=== PATIENT | male | born 1945 | race Caucasian/White ===

== ENCOUNTER 2022-02-21 07:36 | Outpatient (CLI) | payer MEDICARE, SELFPAY ==
--- NOTE | 2022-03-19 11:59 | WPDSLEEPSTUD ---
Sleep Study Date of Study: 02/21/22 Ordering Provider: Dhara Gramajo Interpreting Physician: Lindsay Rousseau DO Sleep Study Type: BiPAP Titration Height: 1.8 m Weight: 97.522 kg Body Mass Index: 29.9 Neck Circumference (inches): 19.5 [place]: 9 Reason for Sleep Study Previous history of EMMANUEL on CPAP and BPAP. Unable to tolerate BPAP recently. Patient is also acting out his dreams. Sleep History The patient is a 77-year-old male with hypertension, CVA, coronary artery disease, GERD, paroxysmal atrial fibrillation and previously diagnosed sleep apnea that had a Pap titration study ordered by his sleep physician. The patient states that he is also been acting out his dreams. His states that he screams at night, kicks and Aks out his dreams. The patient has not fallen out of bed. He has been having 1-2 episodes per week. The patient has been on BiPAP therapy for the past 2 years but has recently been unable to tolerated. He has been waking up feeling unrefreshed. The patient rarely awakens from sleep short of breath. He occasionally awakens at night with heartburn, belching or cough. He rarely snores loud enough that others complain. He rarely has trouble sleeping when he has a cold. He rarely wakes up gasping for air throughout the night. He rarely has breathing problems at night observed by himself or others. He occasionally sweats excessively at night. He rarely has heart palpitations or irregular heartbeats during the night. He frequently falls asleep during the day but never while driving. He occasionally has trouble at school or work due to sleepiness. He denies sleep paralysis and cataplexy. He rarely experiences vivid dreamlike scenes upon awakening or falling asleep. He rarely feels afraid of going to sleep. He frequently has nightmares and frequently remembers his dreams. He occasionally has thoughts racing through his mind. He rarely feels sad or depressed. He occasionally has anxiety. He occasionally has muscular tension. He occasionally notices parts of his body jerk. He occasionally kicks during the night. He occasionally has crawling and aching feelings in his legs and occasionally has leg pain during the night. He occasionally grinds his teeth during sleep but will rarely awaken with morning jaw pain. He is occasionally bothered by pain during the day and occasionally awakened by pain during the night. He frequently wakes up feeling stiff in the morning. He frequently wakes up with sore achy muscles. He frequently wakes up with pain in the neck, spine and other joints. He goes to bed at 10:30 p.m. on both weekdays and weekends. It takes him 15 minutes to fall asleep. He wakes up 2-3 times throughout the night to urinate. It takes him 30 minutes to fall back asleep. He wakes up at 6:00 a.m. on both weekdays and weekends. He typically gets 5-6 hours of sleep per night. He will stay in bed for 10 minutes after waking up in the morning. He currently lives with his . He does not consume any caffeinated beverages within 2 hours of bedtime. He does not engage in physical exercise before bedtime. He will watch television before falling asleep. He will take naps in the afternoon or the evening and they are refreshing. He drinks 2 caffeinated beverages per day. He will drink 1 alcoholic beverage per day. He quit smoking 42 years ago. He denies recreational drug use. [facility] Past Medical History Medical History (Updated 03/19/22 @ 12:17 by Lindsay Rousseau DO) CAD (coronary artery disease) GERD (gastroesophageal reflux disease) History of CVA (cerebrovascular accident) HTN (hypertension) EMMANUEL (obstructive sleep apnea) Paroxysmal atrial fibrillation Social History Social History (Updated 03/19/22 @ 12:08 by Lindsay Rousseau DO) Smoking status: Former smoker Tobacco type: cigarettes Alcohol intake: current Drinks per week: 7 Substance use: never Living arrangements: with [facility]
[2022-03-19 23:26] VITALS: BMI 29.9
== END 2022-02-22 06:19 | disposition home or self-care (01) ==
LOC: ANHCSM 07:37
PROVIDERS: PCP Family Medicine
DX: G47.33 Obstructive sleep apnea (adult) (pediatric) (principal)
CPT/HCPCS: 95811

== ENCOUNTER 2025-04-22 13:29 | Outpatient (CLI) | payer MEDICARE, SELFPAY ==
--- OUTSIDE RECORDS SUMMARY | 2025-04-21 11:00 | XMS_ITS | Encounter Summary ---
Author Organization [facility] Address [address] [place] [address] Care Team Providers Care Manufacturing Helper Name Role Phone Saul Trevino MD Primary Care Provider James Pickett MD Unavailable Bismark Gerardo MD Unavailable [phone] Tonio Apodaca MD Unavailable Faheem Parish MD Unavailable Adithya Augustine DO Unavailable [phone] Andre Hernandez MD Unavailable [phone] Reason for Visit * Reason Comments Anticoagulation protime Encounter Details Date Type Department Care Team (Late st Contact Info) Description 04/21/2025 11:00 AM CDT Allied Health/N[facility] [address] [place], [place] [id number] James Pickett MD Three [facility]. [facility] [address], [place] [id number] Anticoagulation (protime) Social History Tobacco Use Types Packs/Day Years Used Date Smoking Tobacco: Former Cigarettes 1 10 0 03/27/1966 - 03/27/1976 Passive Smoke Exposure: Past Smokeless Tobacco: Never Comments:former smoker Passive Exposure Comments:cigarette smoker Alcohol Use Standard Drinks/Week Comments Yes 6.7 (1 standard drink = 0.6 oz p ure alcohol) socially AUDIT-C Answer Date Recorded Q1: How often do you have a drink containing alc ohol? 2-4 times a month 01/02/2021 Average Number of Drinks Not on file Frequency of Binge Drinking Not on file 11/2020 PHQ-2 Answer Date Recorded Patient Health Questionnaire-2 Score 0 09/30/2023 Education Answer Date Recorded What is the highest level of school you have completed or the highest degree you have received? 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 Answer Date of Assessment Author Status No 11/01/2021 6:01 PM [employer] Activ e * Do you have serious difficulty walking or climbing stairs? Answer Date of Assessment Author Status Yes 11/01/2021 6:01 PM [employer] Kira Olea R N Active * Do you have difficulty dressing or bathing? Answer Date of Assessment Author Status No 11/01/2021 6:01 PM [employer] Kira Olea R N Active * Because of a physical, mental, or emotional condition, do you have difficulty doing errands alone such as visiting a doctor's office or shopping? Answer Date of Assessment Author Status No 11/01/2021 6:01 PM [employer] Kira Olea R N Active documented as of this encounter Mental Status * Because of a physical, mental, or emotional condition, do you have serious difficulty concentrating, remembering, or making decisions? Answer Entry Date Author Status No 11/01/2021 6:01 PM [employer] Kira Olea R N Active documented in this encounter Progress Notes * Mindi Irving RN - 04/21/2025 11:00 AM CDT INR 1.0 patient has held warfarin 5 days for a pain injection today.Patient will resume his usual warfarin dose tomorrow and follow up with the [place] coumad[facility] clinic.Notified in the clinic. documented in this encounter Plan of Treatment Upcoming Encounters Date Type Department Care Team (Late st Contact Info) Description 06/20/2025 11:35 AM CDT Allied Health/N[facility] [address] [place] [address] James Pickett MD Three [facility]. [facility] [address] [place] [address] 09/20/2025 12:00 PM [employer] Office [facility] [address] [place] [address] James Picektt MD [facility] [address] [place] [address] 09/27/2025 1:00 PM [employer] Office Visit [facility] [address] [place] [address] Saul Trevino MD [address] [place] [address] documented as of this encounter Goals Goal Patient Goal Type Associated Problems Recent Progress Patient-Stated? Author Patient will return to prior living situation and remain independent in ADLs upon discharge from hospital General No Anna Wall RN documented as of this encounter Procedures Procedure Name Priority Date/Time Associated Diagnosis Comments PROTHROMBIN TIME, FINGERSTICK Routine 04/21/2025 10:59 AM CDT Paroxysmal atrial fibrillation (CMS/HCC HHS/HCC) director long term care (current) use of anticoagulants documented in this encounter Results * PROTIME/INR, FINGERSTICK (04/21/2025 10:59 AM CDT) INR WHOLE BLOOD 1.00 [facility] 04/21/2025 10:5 9 AM CDT James Pickett MD LABORATORY Final Result [facility] [address] [facility] [address] [place] [address], [id number] documented in this encounter Visit Diagnoses Diagnosis director long term care (current) use of anticoagulants- Primary Long-term (current) use of anticoagulants Paroxysmal atrial fibrillation (CMS/HCC HHS/HCC) Atrial fibrillation documented in this encounter Additional Health Concerns Assessment Noted Time PHQ-9 Depression Total Score: 0 09/26/19 23 2:21 PM [employer] documented as of this encounter Care Teams Manufacturing Helper Relationship Specialty Start Date End Date Saul Trevino MD PCP - General FAMILY PRACTICE 08/22/20 James Pickett MD Three [facility]. [facility] [address] [place], [place] [address] [place] Senior Windows Administrator CARDIOVASCULAR DISEASE 03/01/16 Bismark Gerardo MD [address] [place] [address] [address] [place] [address] Consulting Physician PULMONARY DISEASE 06/21/21 Tonio Apodaca MD [address] [place] [address] Consulting Physician UROLOGY 06/21/21 Faheem Parish MD [address] [facility] [address] [place] [address] GASTROENTEROLOGY 06/21/21 Adithya Augustine DO [address] [facility] [address] [place] [address] Consulting Physician GASTROENTEROLOGY 06/21/21 Andre Hernandez MD [address] [facility] [address] [place], [place] [address] Consulting Physician HEMATOLOGY/ONCOLOGY 06/21/21 documented as of this encounter
--- OUTSIDE RECORDS SUMMARY | 2025-04-21 11:14 | XMS_ITS | Encounter Summary ---
Author Organization [facility] Address [address] [place] [address] Care Team Providers Care Fbi Investigator Name Role Phone Saul Trevino MD Primary Care Provider [phone] James Pickett MD Unavailable Bismark Gerardo MD Unavailable [phone] Tonio Apodaca MD Unavailable [phone] Faheem Parish MD Unavailable [phone] Adithya Augustine DO Unavailable [phone] Andre Hernandez MD Unavailable [phone] Reason for Referral * Surgical (Routine) - New Request Specialty Diagnoses / Procedures Referred By Yuri rodriguez Referred To Contact Diagnoses Lumbar radiculopathy Procedures Case request operating room: INJECTION EPIDURAL TRANSFORAMINAL [id number] Lacie Stevenson MD [facility] [address] [facility] [place] [address] Phone: tel: fax: Referral ID Status Reason Start Date Expiration Date V isits Requested Visits Authorized [id number] New Request 04/21/2025 04/21/2026 1 1 Reason for Visit * Auth/Cert (Routine) Specialty Diagnoses / Procedures Referred By Contac t Referred To Contact Diagnoses Lumbar radiculopathy lumbar radiculopathy Procedures NJX AA&/STRD TFRML EPI LUMBAR/SACRAL 1 LEVEL INJECTION EPIDURAL [id number] Lacie Stevenson MD [facility] [address] [place] [address] Phone: tel: fax: Referral ID Status Reason Start Date Expiration Date Visits Re quested Visits Authorized [id number] 1 1 Encounter Details Date Type Department Care Team (Latest Contact Info) Description 04/21/2025 11:14 AM CDT - 04/21/2025 12:20 PM CDT Hospital Encounter [facility] [place], [place] [id number] Lacie Stevenson MD [facility] [address] [place] [phone] Discharge Disposition: Home or Self Care (Routine Discharge) Social History Tobacco Use Types Packs/Day Years [...] Average Number of Drinks Not on file 021 Frequency of Binge Drinking Not on file 11/2020 PHQ-2 Answer Date Recorded Patient Health Questionnaire-2 Score 0 09/30/2023 Education Answer Date Recorded What is the highest level of school you have completed or the highest degree you have received? 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 [employer] Not on file N ot on file Not on file documented as of this encounter Last Filed Vital Signs Vital Sign Reading Time Taken Comments Blood Pressure 149/83 04/21/2025 12:10 PM CDT Pulse 71 04/21/2025 12:10 PM CDT Temperature 36.4 C (97.5 F) 04/21/2025 11:21 AM CDT Respiratory Rate 18 04/21/2025 11:58 AM CDT Oxygen Saturation 97% 04/21/2025 12:10 PM CDT Inhaled Oxygen Concentration - - Weight 96.2 kg (212 lb) 04/21/2025 11:21 AM CDT Height 177.8 cm (5' 10) 04/21/2025 11:21 AM CDT Body Mass Index 30.42 04/21/2025 11:21 AM CDT documented in this encounter Functional Status * RETIRED Are you deaf or do you have serious difficulty hearing Answer Date of Assessment Author Status Yes 11/01/2021 6:01 PM SEQUENCING MACHINE OPERATOR Activ e * RETIRED Are you blind or do you have serious difficulty seeing, even when wearing glasses? Answer Date of Assessment Author Status No 11/01/2021 6:01 PM SEQUENCING MACHINE OPERATOR Activ e * Do you have serious difficulty walking or climbing stairs? Answer Date of Assessment Author Status Yes 11/01/2021 6:01 PM SEQUENCING MACHINE OPERATOR Kira Olea R N Active * Do you have difficulty dressing or bathing? Answer Date of Assessment Author Status No 11/01/2021 6:01 PM SEQUENCING MACHINE OPERATOR Kira Olea R N Active * Because of a physical, mental, or emotional condition, do you have difficulty doing errands alone such as visiting a doctor's office or shopping? Answer Date of Assessment Author Status No 11/01/2021 6:01 PM SEQUENCING MACHINE OPERATOR Kira Olea R N Active * Calculated C-SSRS Risk Score (Lifetime/Recent) Answer Date of Assessment Author Status No Risk Indicated 04/21/2025 11:20 AM CDT Nancy Burt RN Active * Perry Suicide Severity Rating Scale (Screener/Recent Self-Report) Question Answer Date of Assessment Author Status 1. Wish to be (Past 1 Month) No 04/21/2025 11:20 AM Duyen Gregory RN Act messi 2. Non-Specific Active Suicidal Thoughts (Past 1 Month) No 04/21/2025 11:20 AM Duyen Gregory RN Act messi 6. Suicidal Behavior (Lifetime) No 04/21/2025 11:20 AM Duyen Gregory RN Act messi documented as of this encounter Mental Status * Because of a physical, mental, or emotional condition, do you have serious difficulty concentrating, remembering, or making decisions? Answer Entry Date Author Status No 11/01/2021 6:01 PM Kira Osorio R N Active documented in this encounter Discharge Instructions * Discharge Instructions* Phoebe Giles RN - 04/21/2025 12:10 PM CDT [facility] Discharge Instructions RESTART WARFARIN TOMORROW 04/22/2025 WHAT TO DO TODAY: Limit your activity today, but bedrest is not required You may resume your normal activity tomorrow as tolerated Do not drive a vehicle or operate hazardous equipment for the first 24 hours after your procedure. You may experience numbness, tingling, and weakness in your extremities for several hours after your injection. Please be careful when walking or standing so you do not fall. You may remove your bandage in the morning and you may shower. WHAT TO DO TOMORROW: Resume your blood thinner medication if applicable. WHAT TO EXPECT OVER THE NEXT FEW DAYS TO A WEEK: Any weakness or tingling typically wears off after several hours but you may have some tingling forseveral days after some injections It is normal that once the numbing medicine wears off that you could be sore for several days before you notice relief. Pain should get better day by day. The steroid will start working after 2-3 days and can take up to 2 weeks for it to fully work. Everyone has different response to the injection depending on the amount of inflammation and diagnosis. HOW TO CONTROL YOUR PAIN: Injection site soreness is normal and will subside in a few days. We suggest ice packs to the injection site for 10-20 at a time every 2-3 hours. After 24 hours you may use heat if preferred or you may alternate heat and ice. Your pain may be worse for a couple of days; you may use any medications that you were using beforeyour visit. You may also use Tylenol, Motrin or Aleve if not contraindicated by your Primary Care Physician. If you no longer have any prescribed medicine, please get your refill from the physician who fist prescribed it for you. For patients who had a Radiofrequency Ablation your pain could last for up to 2 weeks. We are an Interventional pain management. We do not prescribe pain medicine. COMMON SIDE EFFECTS OF STEROIDS: You may experience warm, flushing sensation with redness in your face, neck and chest. You may feel anxious, jittery, irritable or have trouble sleeping. You may have increased hunger or menstrual changes (for women). If you are a diabetic you may have increased blood sugars. If you do and are unable to control please call your doctor who manages your diabetes. All side effects are temporary and should subside in approximately a week. WHEN TO CALL THE DOCTOR AND HOW TO REACH US: Call [phone]. [phone] for scheduling, insurance questions or speak with a nurse. Our hours are Friday-Friday 8:00am-4:00pm Call the number above for any bleeding/drainage/redness/swelling at the injection site, severe pain, persistent chills, fever over 101 or greater, or new or different pain or numbness. If you are unable to reach us call 911 or go to the nearest emergency room. If you have shortness of breath, fast heart rate, throat/tongue swelling call 911 or go to the nearest emergency room. ANY NEW BOWEL OR BLADDER INCONTINENCE ISSUES OR NUMBNESS TO PELVIC REGION PLEASE GO TO THE EMERGENCY ROOM IMMEDIATELY! documented in this encounter Medications at Time of Discharge acetaminophen 500 MG tablet Take 1 tablet (500 mg total) by mouth every 6 (six) hours as needed for Pain. albuterol sulfate HFA (PROAIR HFA) 108 (90 Base) MCG/ACT inhalerIndicatio ns:Mild reactive airways disease, unspecified whether persistent (HHS/HCC) Inhale 2 puffs into the lungs every 4 (four) hours as needed for Wheezing or Shortness of breath. 18 g 5 10/23/2020 BIPAP MACHINE brimonidine 0.2 % ophthalmic solution Place 1 drop into both eyes 3 (three) times daily. 04/13/2018 Cholecalciferol (VITAMIN D-3) 5000 units Tab Take 1 tablet (5,000 Units total) by mouth daily. 04/13/2018 fluticasone propionate (FLONASE) 50 MCG/ACT nasal sprayIndications :Cough USE 1 TO 2 SPRAYS IN EACH NOSTRIL ONCE A DAY 48 mL 1 01/01/2024 hydrocortisone 2.5 % creamIndications :Hemorrhoids, unspecified hemorrhoid type Apply topically 2 (two) times daily. 3.5 g 1 01/14/2023 lisinopril 10 MG tablet Take 1 tablet (10 mg total) by mouth nightly. MELATONIN ER OR Take 6 mg by mouth nightly at bedtime. nitroglycerin (NITROSTAT) 0.[address] 1 tablet (0.4 mg total) under the tongue every 5 (five) minutes as needed for Chest Pain (If 2 doses taken, all 911.). 25 tablet 1 07/16/2022 pantoprazole 20 MG tablet Take 1 tablet (20 mg total) by mouth daily. 09/08/2018 Polyvinyl Alcohol-Povidone (TEARS PLUS OP) Apply to eye 2 (two) times daily. rosuvastatin (CRESTOR) 10 MG tablet Take 1 tablet (10 mg total) by mouth nightly at bedtime. 90 tablet 1 09/18/2023 vitamin B-12 (CYANOCOBALAMIN) (CYANOCOBALAMIN) 1000 mcg tabletIndication s:Vitamin B 12 deficiency Take 1 tablet (1,000 mcg total) by mouth daily. 03/25/2025 warfarin 5 MG tablet Take 1 tablet (5 mg total) by mouth see administration instructions. documented as of this encounter H&P Notes * Lacie Stevenson MD - 04/21/2025 11:25 AM CDT Images from the original note were not included. Expand All Collapse All Admission Note With PreProc Assess CC: low back pain HPI: Patient is a 80-year-old male who presents to clinic for reevaluation of low back pain. He hasbeen seen previously in this clinic for management and treatment of his low back pain. His most recent visit was on 08/24 patient was seen for bilateral lumbar transforaminal injection. Patient reports 90% relief. Prior to Admission medications Medication Sig Start Date End Date Taking? Authorizing Provider acetaminophen 500 MG tablet Take 1 tablet (500 mg total) by mouth every 6 (six) hours as needed forPain. Yes Doc [facility] albuterol sulfate HFA (PROAIR HFA) 108 (90 Base) MCG/ACT inhaler Inhale 2 puffs into the lungs every 4 (four) hours as needed for Wheezing or Shortness of breath. 10/23/20 Yes Bismark Gerardo MD BIPAP MACHINE Yes Default History Genericprovider brimonidine 0.2 % ophthalmic solution Place 1 drop into both eyes 3 (three) times daily. 04/13/18 Yes JON Mcdonald Cholecalciferol (VITAMIN D-3) 5000 units Tab Take 1 tablet (5,000 Units total) by mouth daily. 04/13/18 Yes JON Mcdonald fluticasone propionate (FLONASE) 50 MCG/ACT nasal spray USE 1 TO 2 SPRAYS IN EACH NOSTRIL ONCE A DAY 01/01/24 Yes JUAN LUIS Velez hydrocortisone 2.5 % cream Apply topically 2 (two) times daily. 01/14/23 Yes Neptali Lozano MD lisinopril 10 MG tablet Take 1 tablet (10 mg total) by mouth nightly. Yes Doc [facility] MELATONIN ER OR Take 6 mg by mouth nightly at bedtime. Yes Doc [facility] nitroglycerin (NITROSTAT) 0.[address] 1 tablet (0.4 mg total) under the tongue every 5 (five) minutes as needed for Chest Pain (If 2 doses taken, all 911.). 07/16/22 Yes James Pickett MD pantoprazole 20 MG tablet Take 1 tablet (20 mg total) by mouth daily. 09/08/18 Yes JON Mcdonald Polyvinyl Alcohol-Povidone (TEARS PLUS OP) Apply to eye 2 (two) times daily. Yes Doc [facility] rosuvastatin (CRESTOR) 10 MG tablet Take 1 tablet (10 mg total) by mouth nightly at bedtime. 09/18/23 Yes James Pickett MD warfarin 5 MG tablet Take 1 tablet (5 mg total) by mouth see administration instructions. Yes Doc [facility] benzonatate (TESSALON PERLES) 100 MG capsule Take 1 capsule (100 mg total) by mouth 3 (three) timesdaily as needed. Patient not taking: Reported on 02/03/2024 12/10/23 JUAN LUIS Velez Allergies Allergen Reactions Ciprofloxacin Swelling Lips swelled Past Medical History Past Medical History: Diagnosis Date A-fib ([facility]) AAA (abdominal aortic aneurysm) ([facility] taking care of this, checks yearly; CT 11/03/2019: Infrarenal mild fusiform abdominal aortic ectasia measuring up to 3.0 cm. 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) Ischemia 2017 CVA (cerebral vascular accident) ([facility]) 12/2015 CVA 12/2015. Still has decreased dexterity right hand, did regain some strength in the hand GERD (gastroesophageal reflux disease) Glaucoma HLD (hyperlipidemia) HTN (hypertension) Neuromuscular disorder ([facility]) 03/2021 Nerve conduction test Obesity EMMANUEL (obstructive sleep apnea) BiPAP Prostate cancer ([facility]) 2013, 2014 s/p prostatectomy & 38 radiation treatments Stroke (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 DUAL LEAD PACEMAKER SYSTEM s/p [employer] dual chamber pacemaker in 2014 EAR SURGERY EXTERNAL Left 10/2022 EYE SURGERY Laser for glaucoma March 2019 [facility] LASER PROCEDURE EYE PROSTATECTOMY for prostate cancer REMOVAL OF SPERM DUCT(S) 1979 SIGMOIDOSCOPY N/A 03/08/2020 FLEXIBLE SIGMOIDOSCOPY-RADIATION PROCTITS performed by Faheem Parish MD at [facility] GI SIGMOIDOSCOPY N/A 06/20/2021 FLEXIBLE SIGMOIDOSCOPY with APC ablation for radiation proctitis performed by Adithya Augustine DO at [facility] GI XA LEAD REVISION/POCKET REVISION 10/21/2018 new RV lead Social History Socioeconomic History Marital status: Spouse name: Elysia Number of children: 2 Years of education: Not on file Highest education level: Bachelor's degree (e.g., BA, AB, BS) Occupational History 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, 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 [employer] Employer: RETIRED Tobacco Use Smoking status: Former Current packs/day: 0.00 Average packs/day: 1 pack/day for 10.0 years (10.0 ttl pk-yrs) Types: Cigarettes Start date: 03/27/1966 Quit date: 03/27/1976 Years since quittin.3 Passive exposure: Past (cigarette smoker) Smokeless tobacco: Never Tobacco comments: former smoker Vaping Use Vaping status: Never Used Substance and Sexual Activity Alcohol use: Yes Alcohol/week: 6.7 standard drinks of alcohol Types: 4 Cans of beer per week Comment: socially Drug use: Never Sexual activity: Yes Partners: Female control/protection: Surgical Other Topics Concern Service Yes Comment: [employer] Blood Transfusions No Caffeine Concern Yes Comment: 2 cups coffee daily Occupational Exposure Yes Comment: Exposure to Agent [place] while serving in the . Hobby Hazards No Sleep Concern Yes Comment: sleep apnea, uses BiPap. Stress Concern No Weight Concern No Special Diet No Back Care No Exercise Yes Comment: ymca 5x week Bike Helmet No Seat Belt No Self-Exams No Wheelchair No Walker Yes Comment: He is using a cane to assist, has it with him today. Said he is using the cane for the first time today. Upper extremity braces/slings No Lower extermity braces/slings No Self Care Yes Social History Narrative Merged History Encounter. Lives at home with his . Social Drivers of Health Financial Resource Strain: Not on file Food Insecurity: Not on file Transportation Needs: Not on file Physical Activity: Not on file Stress: Not on file Social Connections: Not on file Intimate Partner Violence: Not on file Housing Stability: Not on file Review of Systems: no changes except specified in HPI, no bladder or bowel incontinence PHYSICAL EXAM Filed Vitals: 07/22/24 0811 BP: (!) 150/91 Pulse: 79 Resp: 16 Temp: 98 ??F (36.7 ??C) TempSrc: Skin SpO2: 100% Weight: 94.4 kg (208 lb 3.2 oz) Height: 1.778 m (5' 10) Body mass index is 29.87 kg/m??. Pain Observation Pain Tool: 0-10 Age 7-Adult Pain Score: 5 Moderate Pain (0-10 Scale) Pain Type: Chronic pain Pain Location: Back Pain Orientation: Left, Lower (radiates down left leg) Pain Descriptors: Aching, Burning, Constant Pain Frequency: Constant/continuous Pain Onset: On-going Clinical Progression: Gradually worsening Effect of Pain on Daily Activities: worse moving from sitting to standing, standing, walking, Pain Intervention(s): Medication (See eMAR), Repositioned, Rest, Cold pack Multiple Pain Sites: No General: alert, appears stated age and cooperative Skin: normal and no rash or abnormalities HEENT: neck supple with midline trachea Lungs: no respiratory distress Heart: regular rate and rhythm Abdomen: soft Neuro: Lumbar exam: Patient ambulates with slightly limping gait (likely secondary to right sided residual weakness after suffering a stroke years ago), motor strength 5/5 to bilateral lower extremity muscle groups, patellar reflex 2+, bilaterally; Achilles reflex 2+, bilaterally. Straight leg raise positive, left side. Tenderness over direct palpation of L4-5, midline as well as to a lesser degree at L5-S1, midline as well as slightly off to the left at L4-5. Diagnostic imaging: Patient's most recent advanced imaging of the lumbar spine is a CT of the lumbar spine without contrast completed on 01/26/2022. Patient also had recent lumbar x- ray completed on 06/30/2024 in the ER after a fall. Imaging study findings are as follows: Narrative & Impression [facility] [address] IMAGING STUDIES: XR LUMB SPINE 3V DATE: 06/30/2024 10:27 AM HISTORY: fall 79-year-old male. Patient reports falling 2.5 weeks ago onto his left side. Persistent pain on his left side including his back and left hip. COMPARISON: Pelvis and left hip 06/30/2024. CT lumbar spine without contrast 01/24/2022. Ultrasound aorta 02/11/2024. DISCUSSION: AP, lateral, and coned lateral view at the lumbosacral spine. Five lumbar vertebral bodies. Mild rightward curvature lumbar spine with apex approximately L3-4 level. Degenerative disc diseaseat all levels in the lower thoracic spine and lumbar spine. Disc space narrowing probably most pronounced at L3-4 and L4-5 levels. Vacuum disc at L3-4 level is more pronounced than the 2021 CT exam. Bulky bridging osteophytes from T11 through L3 levels. Facet degenerative changes most pronounced atL3-S1 levels. Degenerative changes bilateral sacroiliac joints and visualized hips. Also refer to body builder apprentice radiographs of the pelvis and left hip. Cholecystectomy clips. Vascular calcifications. On lateral view, distal abdominal aorta aneurysmal dilation may be as much as 4.8 cm (on ultrasound 02/11/2024, distal aorta was 3.6 x 3.[address] abdomen pelvis without contrast 01/10/2022, it is 3.3 x 3.4 cm). IMPRESSION: 1. Substantial degenerative changes in the lower thoracic spine and entire lumbar spine. No appreciable new vertebral body compression fracture or traumatic malalignment. Correlate with clinical examand acquire advanced imaging such as CT or MRI if clinically indicated. 2. Aneurysmal dilation of the distal abdominal aorta may be as much as 4.8 cm on the current study which is greater than noted on previous ultrasound and CT studies. Consider follow-up aortic ultrasound for direct comparison with the 02/11/2024 study. Ordered By: RONY DUNN Interpreted By: Brayan Oliveira, 06/30/2024 11:33 AM Examination: CT LUMB SPINE WO CON Exam time: 01/24/2022 11:11 AM Clinical history: The patient fell in October 2021. Right-sided hip pain and groin pain. Comparison: There are no previous identical studies. Technique: A dose lowering technique was used for this procedure, which may include, but is not limited to dose reduction technique, automated exposure control and the use of a iterative reconstruction and ALARA (as low as reasonably achievable)/image gently techniques. Findings: The height of the lumbar vertebra are well-maintained. There are no defects at the pars. No acute bony abnormalities. Prominent degenerative changes especially at the endplates of the interspace L4-5. There is suggestion of a hemangioma on the right side of the L1 vertebra. The lower thoracic spine at the level T12-L1 shows no significant disc abnormalities. Prominent anterior endplate spurs. There is mild calcified bilateral annular bulge at T12-L1 as seen on coronal images. L1-L2: Degenerative changes with prominent calcifications of the bulging right lateral annulus as seen on the coronal image. Mild diffuse central bulge. There is mild narrowing of the right neural foramen. Mild facet disease. L2-3: Degenerative changes with mild hypertrophy of the facets and mild bulge. Borderline size of the central canal and the neural foramen. L3-4: More pronounced degenerative changes. Moderate left posterolateral calcified disc protrusion with moderate narrowing of the left neural foramen as seen on axial image #41 and sagittal image #19. There is borderline size of the central canal and mild narrowing of the left lateral recess. L4-5: At least moderate facet disease. At this level there is prominent left posterolateral disc protrusion which obliterates the left neural foramen associated with a pocket of air in the left root canal which may represent rupture of the annulus. There is borderline size of the central canal. L5-S1: Hkjw-fe-oagoyaeb facet disease. No significant stenosis. Within the central canal no abnormal densities. Partially visualized paraspinal soft tissues show aneurysmal dilatation of the abdominal aorta. IMPRESSION: 1) No acute bony abnormalities in the lumbar spine. 2. Degenerative changes noted associated with left posterolateral disc protrusions at L3-4 and L4-5and especially with concern of rupture of the protruded anulus in the left neural foramen L4-5 along with facet disease. 3. Borderline size of the central canal at L3-4 and L4-5 as described with mild facet disease. 4. At other levels no significant disc abnormalities. 5. Prominent right lateral bulge of the annulus with calcifications at the level L1-L2 best seen onthe coronal images. Ordered By: RENETTA AMIN Interpreted By: Luis Tomas MD, 01/26/2022 3:02 PM ASSESSMENT Lumbar radiculopathy PLAN I have reviewed available imaging of the lumbar spine and have discussed physical exam findings with patient during today's visit. After just moving forward with a transforaminal epidural steroid injection at L4-5 to treat low back pain as well as numbness/tingling in bilateral big toes and radicular symptoms in the left lower extremity. I have discussed risks and benefits associated with this procedure. Risks including, but not limited to infection, permanent neurological deficit due to nerve root injury, bleeding, anaphylaxis, flushing, cerebral spinal fluid leak, paralysis, spinal cord injury, thinning of the skin, thinning of the bones, muscle cramping. Patient wishes to proceed with this injection. I have allowed time for patient to voice questions regarding this plan of care. He is in agreement to this plan of care and wishes to proceed. documented in this encounter OR Notes * Op Note - Lacie Stevenson MD - 04/21/2025 12:02 PM CDT PROCEDURE: LUMBAR TRANSFORAMINAL EPIDURAL STEROID INJECTION UNDER FLUOROSCOPY LEVELS: Bilateral L4-5 PREOPERATIVE DIAGNOSIS: LUMBAR RADICULOPATHY POSTOPERATIVE DIAGNOSIS: SAME PREOP SURGEON: LACIE STEVENSON MD RISKS, BENEFITS, ALTERNATE TREATMENTS DISCUSSED. WRITTEN CONSENT OBTAINED. PATIENT TAKEN TO PROCEDURE ROOM PLACED IN PRONE POSITION. PILLOW UNDER ABDOMEN TO REDUCE LUMBAR LORDOSIS. STERILE PREP AND DRAPE OF LUMBOSACRAL SPINE PERFORMED. ASA STANDARD MONITORS APPLIED. Risks including, but not limited to infection, permanent neurological deficit due to nerve root injury, bleeding, anaphylaxis, flushing, cerebral spinal fluid leak, paralysis, spinal cord injury, thinning of the skin, thinning of the bones, muscle cramping. PROCEDURE: VERTEBRAL BODIES WERE SQUARED.. SKIN AND SUBCUTANEOUS TISSUES ANESTHETIZED WITH 1% LIDOCAINE. 22 GAUGE CHIBA NEEDLES WITH BENT TIPS WERE USED. C ARM WAS MOVED TO THE OBLIQUE X RAY VIEW. TARGET FOR L 4-5 NERVE ROOT IS THE 6 O???CLOCK POSITION OF THE PEDICLE SHADOW IN THE OBLIQUE X RAY VIEW AT THE LEVEL OF L 4-5 ON THE left and right SIDE. APPROPRIATE NEEDLE TIP POSITION WAS CONFIRMED IN THE AP,OBLIQUE AND LATERAL VIEWS. AFTER NEGATIVE ASPIRATION, 5 CC OF CONTRAST SPLIT BETWEEN THE ABOVE MENTIONED LEVELS WAS INJECTED IN THE LATERAL VIEW CONFIRMING SPREAD IN THE ANTERIOR EPIDURAL SPACE. NEGATIVE ASPIRATION PRIOR TO 5 CC OF CONTRAST INJECTED IN THE AP VIEW CONFIRMING SPREAD ALONG THE APPROPRIATE NERVE ROOTS ALONG WITH EDIDURAL SPREAD. NO INTRAVASCULAR OR INTRATHECAL UPTAKE NOTED. NEGATIVE ASPIRATION PRIOR TO INJECTION OF 4OMG DEPOMEDROL AND 2 CC OF 0.25% BUPIVACAINE INJECTED PER LEVEL. NEEDLES REMOVED. NO COMPLICATIONS. POST PROCEDURE: PATIENT TOLERATED PROCEDURE WELL AND OBSERVED PRIOR TO DISCHARGE. DISCHARGED IN STABLE CONDITION WITH APPROPRIATE POST-PROCEDURE INSTRUCTIONS. documented in this encounter Plan of Treatment Upcoming Encounters Date Type Department Care Team (Late st Contact Info) Description 06/20/2025 11:35 AM CDT Allied Health/Nurse Visit [facility], [address] [address] James Pickett MD [facility]. [address] [address] 09/20/2025 12:00 PM SEQUENCING MACHINE OPERATOR Office Visit [facility], [address] [address] James Pickett MD [facility]. [address] [address] 09/27/2025 1:00 PM SEQUENCING MACHINE OPERATOR Office Visit [facility] [address] [place] [address] Saul Trevino MD [address] [place] [id number] documented as of this encounter Goals Goal Patient Goal Type Associated Problems Recent Progress Patient-Stated? Author Patient will return to prior living situation and remain independent in ADLs upon discharge from [facility] Anna Quezada RN documented as of this encounter Procedures Procedure Name Priority Date/Time Associated Diagnosis Comments XR PAIN CLINIC C-ARM Today 04/21/2025 11:26 AM CDT documented in this encounter Results * XR PAIN CLINIC C-ARM (04/21/2025 11:26 AM CDT) Narrative Radiology, Technologist - 04/21/2025 11:26 AM CDT This report does not contain a radiologist's interpretation. Please review associated procedure and/or operative report. Lacie Stevenson MD GENERAL IMAGING Final Result documented in this encounter Visit Diagnoses Diagnosis Lumbar radiculopathy- Primary Thoracic or lumbosacral neuritis or radiculitis, unspecified Lumbar radiculopathy Thoracic or lumbosacral neuritis or radiculitis, unspecified documented in this encounter Admitting Diagnoses Diagnosis Lumbar radiculopathy Thoracic or lumbosacral neuritis or radiculitis, unspecified documented in this encounter Administered Medications Inactive Administered Medications - up to 3 most recent administrations Medication Order MAR Action Action Date Dose Rate Site chlorhexidine (PERIDEX) 0.12 % solution 15 mL 15 mL, Mouth/Throat, PRN, Prior to surgery, 1 dose, Starting on Sherry 04/21/25 at 1122, Until Sherry 04/21/25 at 1853, Patient to perform oral care first. Swish/Gargle in mouth for 30 seconds, and then discard, prior to going to surgery/ If ventilated use saturated swab to clean oral cavity., Pre-Op diazePAM (VALIUM) 5 MG tablet 1 dose, Starting on Sherry 04/21/25 at 1121, Until Sherry 04/21/25 at 1122, Created by cabinet override diazePAM (VALIUM) tablet 5 mg 5 mg, Oral, Once as needed, Anxiety, 1 dose, Starting on Sherry 04/21/25 at 1122, Until Sherry 04/21/25 at 1122, Pre-Op Given 04/21/2025 11:22 AM CDT 5 mg documented in this encounter Active and Recently Administered Medications Times are shown in CDT. PRN Medication Order 04/19/2025 04/20/2025 04/21/2025 BUpivacaine (PF) (MARCAINE) 0.25 % injection (CANCELED) As needed, Starting on Sherry 04/21/25 at 1154, Until Sherry 04/21/25 at 1200, Intra-Op 1154 (Given - Provid er: Lacie Stevenson MD) chlorhexidine (PERIDEX) 0.12 % solution 15 mL 15 mL, Mouth/Throat, PRN, Prior to surgery, 1 dose, Starting on Sherry 04/21/25 at 1122, Until Sherry 04/21/25 at 1853, Patient to perform oral care first. Swish/Gargle in mouth for 30 seconds, and then discard, prior to going to surgery/ If ventilated use saturated swab to clean oral cavity., Pre-Op diazePAM (VALIUM) tablet 5 mg (COMPLETED) 5 mg, Oral, Once as needed, Anxiety, 1 dose, Starting on Sherry 04/21/25 at 1122, Until Sherry 04/21/25 at 1122, Pre-Op 1122 (Given - Provid er: Duyen Burt RN) iopamidol (ISOVUE-M 300) 61 % injection (CANCELED) As needed, Starting on Sherry 04/21/25 at 1154, Until Sherry 04/21/25 at 1200, Intra-Op 1154 (Given - Provid er: Lacie Stevenson MD) lidocaine (PF) (XYLOCAINE) 1 % injection (CANCELED) As needed, Starting on Sherry 04/21/25 at 1154, Until Sherry 04/21/25 at 1200, Intra-Op 1154 (Given - Provid er: Lacie Stevenson MD) methylPREDNISolone acetate (DEPO-Medrol) injection (CANCELED) As needed, Starting on Sherry 04/21/25 at 1155, Until Sherry 04/21/25 at 1200, Intra-Op 1155 (Given - Provid er: Lacie Stevenson MD) documented in this encounter Additional Health Concerns Assessment Noted Time PHQ-9 Depression Total Score: 0 09/26/19 23 2:21 PM SEQUENCING MACHINE OPERATOR documented as of this encounter Care Teams Fbi Investigator Relationship Specialty Start Date End Date Saul Trevino MD PCP - General FAMILY PRACTICE 08/22/20 James Picktet MD Three [facility]. [address] [place] [address] [place] [facility] CARDIOVASCULAR DISEASE 03/01/16 Bismark Gerardo MD 3rd [facility] [address] [place] [address] Consulting Physician PULMONARY DISEASE 06/21/21 Tonio Apodaca MD [address] [place] [address] Consulting Physician UROLOGY 06/21/21 Faheem Parish MD [address] [facility] [address] [place] [address] GASTROENTEROLOGY 06/21/21 Adithya Augustine DO [address] [facility] [address] [place] [address] Consulting Physician GASTROENTEROLOGY 06/21/21 Andre Hernandez MD [address] [facility] [address] [place] [address] Consulting Physician HEMATOLOGY/ONCOLOGY 06/21/21 documented as of this encounter
--- OUTSIDE RECORDS SUMMARY | 2025-04-21 12:20 | XMS_ITS | Encounter Summary ---
Author Organization [facility] Address [address] [place] [address] Care Team Providers Care License And Permit Specialist Name Role Phone Saul Trevino MD Primary Care Provider James Pickett MD Unavailable Bismark Gerardo MD Unavailable [phone] Tonio Apodaca MD Unavailable Faheem Parish MD Unavailable [phone] Adithya Augustine DO Unavailable [phone] Andre Hernandez MD Unavailable [phone] Reason for Visit * Auth/Cert (Routine) Specialty Diagnoses / Procedures Referred By Yuri rodriguez Referred To Contact Diagnoses Lumbar radiculopathy lumbar radiculopathy Procedures NJX AA&/STRD TFRML EPI LUMBAR/SACRAL 1 LEVEL INJECTION EPIDURAL [id number] Lacie Stevenson MD [facility] [address] [place] [address] Phone: tel: fax: Referral ID Status Reason Start Date Expiration Date Visits Re quested Visits Authorized [id number] 1 1 Encounter Details Date Type Department Care Team (Late st Contact Info) Description 04/21/2025 12:20 PM CDT - 04/21/2025 12:40 PM CDT Surgery [facility] Interventional Pain [facility] [place] [address] [phone] Lacie Stevenson MD [facility] [address] [place], [place] [phone] INJECTION EPIDURAL [id number] Social History Tobacco Use Types Packs/Day Years [...] Sex Assigned at Male 07/05/2018 8:48 PM CLIENT SERVICE SUPERVISOR Legal Sex Male 11:44 PM CDT Gender Identity Male 07/05/2018 8:48 PM CLIENT SERVICE SUPERVISOR Sexual Orientation Straight 08/03/2018 2: 21 PM CLIENT SERVICE SUPERVISOR Occupation Industry Job Start Date Job End Date 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 Answer Date of Assessment Author Status No 11/01/2021 6:01 PM CLIENT SERVICE SUPERVISOR Activ e * Do you have serious difficulty walking or climbing stairs? Answer Date of Assessment Author Status Yes 11/01/2021 6:01 PM Kira Osorio R N Active * Do you have difficulty dressing or bathing? Answer Date of Assessment Author Status No 11/01/2021 6:01 PM Kira Osorio R N Active * Because of a physical, mental, or emotional condition, do you have difficulty doing errands alone such as visiting a doctor's office or shopping? Answer Date of Assessment Author Status No 11/01/2021 6:01 PM Kira Osorio R N Active * Calculated C-SSRS Risk Score (Lifetime/Recent) Answer Date of Assessment Author Status No Risk Indicated 04/21/2025 11:20 AM CDT Nancy Burt RN Active * [place] Suicide Severity Rating Scale (Screener/Recent Self-Report) Question Answer Date of Assessment Author Status 1. Wish to be (Past 1 Month) No 04/21/2025 11:20 AM ANDERSNOT Duyen Burt RN Act messi 2. Non-Specific Active Suicidal Thoughts (Past 1 Month) No 04/21/2025 11:20 AM ANDERSONT Duyen Burt RN Act messi 6. Suicidal Behavior (Lifetime) No 04/21/2025 11:20 AM Duyen Gregory RN Act messi documented as of this encounter Mental Status * Because of a physical, mental, or emotional condition, do you have serious difficulty concentrating, remembering, or making decisions? Answer Entry Date Author Status No 11/01/2021 6:01 PM Kira Osoroi R N Active documented in this encounter Discharge Instructions * Discharge Instructions* Phoebe Giles RN - 04/21/2025 12:10 PM CDT [place] Interventional Pain Management Discharge Instructions RESTART WARFARIN [...] DOCTOR AND HOW TO REACH US: Call [phone] ext. [phone] for scheduling, insurance questions or speak with [...] or Shortness of breath. 10/23/20 Yes Bismark Greardo MD BIPAP MACHINE Yes Default History Genericprovider [...] (10 mg total) by mouth nightly. Yes Darren Ness Abstract MELATONIN ER OR Take 6 mg [...] to eye 2 (two) times daily. Yes Darren Prevea Abstract rosuvastatin (CRESTOR) 10 MG tablet Take 1 tablet (10 mg total) by mouth nightly at bedtime. 09/18/23 Yes James Pickett MD warfarin 5 MG tablet Take 1 tablet (5 mg total) by mouth see administration instructions. Yes Darren Prevea Abstract benzonatate (TESSALON PERLES) 100 MG capsule Take 1 capsule (100 mg total) by mouth 3 (three) timesdaily as needed. Patient not taking: Reported on 02/03/2024 12/10/23 JUAN LUIS Velez Allergies Allergen Reactions Ciprofloxacin Swelling Lips swelled Past Medical History Past Medical History: Diagnosis Date A-fib ([facility] AAA (abdominal aortic aneurysm) ([facility] [place] taking care of this, checks yearly; CT 11/03/2019: Infrarenal mild fusiform abdominal aortic ectasia measuring up to 3.0 cm. 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 DUAL LEAD PACEMAKER SYSTEM s/p [employer] dual chamber pacemaker in 2014 EAR SURGERY EXTERNAL Left 10/2022 EYE SURGERY Laser for glaucoma March 2019 [facility] LASER PROCEDURE EYE PROSTATECTOMY for prostate cancer REMOVAL OF SPERM DUCT(S) 1979 SIGMOIDOSCOPY N/A 03/08/2020 FLEXIBLE SIGMOIDOSCOPY-RADIATION PROCTITS performed by Faheem Parish MD at [facility] GI SIGMOIDOSCOPY N/A 06/20/2021 FLEXIBLE SIGMOIDOSCOPY with APC ablation for radiation proctitis performed by Adithya Augustine DO at [facility] GI XA LEAD REVISION/POCKET REVISION 10/21/2018 new RV lead Social History Socioeconomic History Marital status: Spouse name: Elysia Number of children: 2 Years of education: Not on file Highest education level: Bachelor's degree (e.g., BA, AB, BS) Occupational History 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 Hobby Hazards No Sleep Concern Yes Comment: [...] findings are as follows: Narrative & Impression [address] [address] IMAGING STUDIES: XR LUMB SPINE 3V DATE: [...] joints and visualized hips. Also refer to residential treatment specialist radiographs of the pelvis and left hip. [...] borderline size of the central canal. L5-S1: [id number] facet disease. No significant stenosis. Within the [...] 06/20/2025 11:35 AM CDT Allied Health/Nurse Visit [facility], [address] [place] [address] James Pickett MD [facility]. [facility] [address] [place], [place] [id number] 09/20/2025 12:00 PM CLIENT SERVICE SUPERVISOR Office Visit [facility] [address] [place] [address] James Pickett MD [facility]. [facility] [address] [place] [address] 09/27/2025 1:00 PM CLIENT SERVICE SUPERVISOR Office Visit [facility] [address] [place] [address] Saul Trevino MD [address] [place] [address] documented as of this encounter Goals Goal Patient Goal Type Associated Problems Recent Progress Patient-Stated? Author Patient will return to prior living situation and remain independent in ADLs upon discharge from hospital General Anna Quezada RN documented as of this [...] MAR Action Action Date Dose Rate Site BUpivacaine (PF) (MARCAINE) 0.25 % injection As needed, Starting on Sherry 04/21/25 at 1154, Until Sherry 04/21/25 at 1200, Intra-Op Given 04/21/2025 11:54 AM CDT 2 mLs chlorhexidine (PERIDEX) 0.12 % solution 15 mL [...] 5 MG tablet 1 dose, Starting on Hserry 04/21/25 at 1121, Until Sherry 04/21/25 at 1122, Created by cabinet override diazePAM (VALIUM) tablet 5 mg 5 mg, Oral, Once as needed, Anxiety, 1 dose, Starting on Sherry 04/21/25 at 1122, Until Sherry 04/21/25 at 1122, Pre-Op Given 04/21/2025 11:22 AM CDT 5 mg iopamidol (ISOVUE-M 300) 61 % injection As needed, Starting on Sherry 04/21/25 at 1154, Until Sherry 04/21/25 at 1200, Intra-Op Given 04/21/2025 11:54 AM CDT 5 mLs lidocaine (PF) (XYLOCAINE) 1 % injection As needed, Starting on Sherry 04/21/25 at 1154, Until Sherry 04/21/25 at 1200, Intra-Op Given 04/21/2025 11:54 AM CDT 2 mLs methylPREDNISolone acetate (DEPO-Medrol) injection As needed, Starting on Sherry 04/21/25 at 1155, Until Sherry 04/21/25 at 1200, Intra-Op Given 04/21/2025 11:55 AM CDT 80 mg documented in this encounter Active and [...] Total Score: 0 09/26/19 23 2:21 PM CLIENT SERVICE SUPERVISOR documented as of this encounter Care Teams License And Permit Specialist Relationship Specialty Start Date End Date Saul Trevino MD PCP - General FAMILY PRACTICE 08/22/20 James Pickett MD [facility]. [address] [place] [address] [place] [employer] Hvac Technician CARDIOVASCULAR DISEASE 03/01/16 Bismark Gerardo MD 3[address] [facility] [address] [place] [address] Consulting Physician PULMONARY DISEASE 06/21/21 Tonio Apodaca MD [address] [facility] [place] [address] Consulting Physician UROLOGY 06/21/21 Faheem Parish MD [address] [facility] [address] [place] [address] GASTROENTEROLOGY 06/21/21 Adithya Augustine DO [address] [facility] [address] [place] [address] Consulting Physician GASTROENTEROLOGY 06/21/21 Andre Hernandez MD [address] [facility] [address] [place] [address] Consulting Physician HEMATOLOGY/ONCOLOGY 06/21/21 documented as of this encounter
--- NOTE | ~2025-04-22 | PE_ITS ---
EXAMINATION: PET_PETPSMAST_PT DATE: 04/22/2025 15:39 INDICATION: Prostate cancer TECHNIQUE: 5.232 mCi of Illucix Ga-[id number]) was administered i.v. Low dose computed tomography (CT) images were acquired from the base of the brain to the base of the brain to the proximal thighs for attenuation correction and anatomic localization. Positron emission tomography (PET) images were acquired in the same distribution beginning 68 minutes after injection. Images including fused PET/CT images were reconstructed in axial, coronal, and sagittal planes. Automated exposure control technique was employed. The dose-length product was 1205.38mGy-cm. COMPARISON: None FINDINGS: Head/neck: Typical pattern of symmetric physiologic increased activity in the lacrimal, parotid and submandibular glands as well as along the mucosa of the nasal and oral cavities, pharynx and hypopharynx. No pathologically enlarged cervical lymphadenopathy or suspicious foci of increased uptake in the visualized head or neck. Chest: Respiratory motion and mild atelectasis at the bilateral lung bases. No suspicious pulmonary nodules or pleural effusion. Mild hepatomegaly. Atherosclerotic coronary artery calcification. No pericardial effusion. Cardiac pacemaker with 3 leads extending to the heart, one lead tip at the right atrium and 2 leads terminating in the right ventricle. Thoracic aorta is normal in caliber. Calcified left hilar lymph nodes consistent with old granulomatous disease. No pathologically enlarged or PSMA avid thoracic lymphadenopathy. Abdomen/pelvis/proximal thighs: Physiologic renal accumulation and excretion of FDG activity in the kidneys, bladder and along portions of Physiologic renal accumulation and excretion of activity in the kidneys, bladder and along portions of ureters. Status post prostatectomy with no abnormal increased soft tissue at the prostatectomy bed. Normal degree and slightly heterogenous pattern of increased uptake throughout the liver and spleen without radiologic correlate or dominant PSMA avid lesion. The gallbladder, pancreas and bilateral adrenal glands are normal. Moderate uptake scattered throughout the bowels with typical duodenal and proximal jejunal predominance and without radiologic correlate, also likely physiologic. Increased uptake such with a 9 x 5 mm right internal iliac chain lymph node with maximal SUV of maximal SUV of 25.4 consistent with metastatic disease. No other abnormal foci of increased uptake or pathologically enlarged lymphadenopathy in the abdomen, pelvis or proximal thighs. Musculoskeletal: Severe lower cervical, moderate thoracic and severe lumbar spondylosis. No suspicious lytic, blastic or abnormally PSMA avid bone lesions. IMPRESSION: 1. Single prominently PSMA avid 9 x 5 mm right internal iliac chain lymph node consistent with metastatic disease. No other metastatic disease or evident locally recurrent disease at the prostatectomy bed. Reviewed, dictated and finalized at location A. IMPRESSION: 1. Single prominently PSMA avid 9 x 5 mm right internal iliac chain lymph node consistent with metastatic disease. No other metastatic disease or evident loca lly recurrent disease at the prostatectomy bed.
--- OUTSIDE RECORDS SUMMARY | 2025-04-22 13:36 | XMS_ITS | Encounter Summary ---
Author Organization [facility] Address [address] [place] [address] Care Team Providers Care Manager Part Name Role Phone Saul Trevino MD Primary Care Provider James Pickett MD Unavailable Bismark Gerardo MD Unavailable [phone] Tonio Apodaca MD Unavailable Faheem Parish MD Unavailable [phone] Adithya Augustine DO Unavailable [phone] Andre Hernandez MD Unavailable [phone] Encounter Details Date Type Department Care Team (Late st Contact Info) Description 03/06/2023 Pre-Procedure Call [facility] [address] [place], [place] [id number] [phone] Isabela Laurent CNA Social History Tobacco Use Types Packs/Day Years Used Date Smoking Tobacco: Former Cigarettes 1 10 0 03/27/1966 - 03/27/1976 Passive Smoke Exposure: Past Smokeless Tobacco: Never Comments:former smoker Passive Exposure Comments:cigarette smoker Alcohol Use Standard Drinks/Week Comments Yes 50 (1 standard drink = 0.6 oz pu re alcohol) socially AUDIT-C Answer Date Recorded Q1: How often do you have a drink containing alc ohol? 2-4 times a month 01/02/2021 Average Number of Drinks Not on file 021 Frequency of Binge Drinking Not on file 11/2020 PHQ-2 Answer Date Recorded Patient Health Questionnaire-2 Score 0 09/26/2022 Education Answer Date Recorded What is the highest level of school you have completed or the highest degree you have received? 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 No / Unsure 02/07/2023 7:07 AM CDT documented as of this encounter Functional Status * RETIRED Are you deaf or do you have serious difficulty hearing Answer Date of Assessment Author Status Yes 11/01/2021 6:01 PM GENERAL ENGINEERING TEACHER Activ e * RETIRED Are you blind or do you have serious difficulty seeing, even when wearing glasses? Answer Date of Assessment Author Status No 11/01/2021 6:01 PM GENERAL ENGINEERING TEACHER Activ e * Do you have serious difficulty walking or climbing stairs? Answer Date of Assessment Author Status Yes 11/01/2021 6:01 PM GENERAL ENGINEERING TEACHER Kira Olea R N Active * Do you have difficulty dressing or bathing? Answer Date of Assessment Author Status No 11/01/2021 6:01 PM GENERAL ENGINEERING TEACHER Kira Olea R N Active * Because of a physical, mental, or emotional condition, do you have difficulty doing errands alone such as visiting a doctor's office or shopping? Answer Date of Assessment Author Status No 11/01/2021 6:01 PM GENERAL ENGINEERING TEACHER Kira Olea R N Active documented as of this encounter Mental Status * Because of a physical, mental, or emotional condition, do you have serious difficulty concentrating, remembering, or making decisions? Answer Entry Date Author Status No 11/01/2021 6:01 PM GENERAL ENGINEERING TEACHER Kira Olea R N Active documented in this encounter Plan of Treatment Upcoming Encounters Date Type Department Care Team (Late st Contact Info) Description 06/20/2025 11:35 AM CDT Allied Health/Nurse Visit [facility] THREE [facility], [address] [place] [address] James Pickett MD Three [facility]. [address] [place], [place] [address] 09/20/2025 12:00 PM GENERAL ENGINEERING TEACHER Office Visit [facility] THREE [facility], [address] [place] [address] James Pickett MD Three [facility]. [address] [place] [address] 09/27/2025 1:00 PM GENERAL ENGINEERING TEACHER Office Visit [facility] [address] [place] [address] Saul Trevino MD [address] [place] [address] documented as of this encounter Goals Goal Patient Goal Type Associated Problems Recent Progress Patient-Stated? Author Patient will return to prior living situation and remain independent in ADLs upon discharge from hospital General No Anna Wall RN documented as of this encounter Visit Diagnoses Not on filedocumented in this encounter Additional Health Concerns Infection Onset Date Last Indicated Resolved Time COVID-19 Rule Out 08/06/2023 08/06/2023 08/06/2023 1:16 PM GENERAL ENGINEERING TEACHER COVID-19 Rule Out 10/12/2023 10/12/2023 10/12/2023 8:48 AM GENERAL ENGINEERING TEACHER COVID-19 Rule Out 07/27/2024 07/27/202407/27/2024 12:12 PM GENERAL ENGINEERING TEACHER Assessment Noted Time PHQ-9 Depression Total Score: 0 09/26/19 23 2:21 PM GENERAL ENGINEERING TEACHER documented as of this encounter Care Teams Manager Part Relationship Specialty Start Date End Date Saul Trevino MD PCP - General FAMILY PRACTICE 08/22/20 James Pickett MD Three [facility]. [address] [place] [address] [place] [facility]r CARDIOVASCULAR DISEASE 03/01/16 Bismark Gerardo MD 3rd [facility] [address] [place] [address] Consulting Physician PULMONARY DISEASE 06/21/21 Tonio Apodaca MD 3 [facility] [place] [address] Consulting Physician UROLOGY 06/21/21 Faheem Parish MD [address] [facility] [address] [place] [address] GASTROENTEROLOGY 06/21/21 Adithya Augustine DO [address] [facility] [address] [place] [address] Consulting Physician GASTROENTEROLOGY 06/21/21 Andre Hernandez MD [address] [facility] [address] [place] [address] Consulting Physician HEMATOLOGY/ONCOLOGY 06/21/21 documented as of this encounter
--- OUTSIDE RECORDS SUMMARY | 2025-04-22 13:36 | XMS_ITS | Encounter Summary ---
Author Organization [facility] Address [address] [place] [address] Care Team Providers Care Sou[address] Vendor Name Role Phone Saul Trevino MD Primary Care Provider James Pickett MD Unavailable Bismark Gerardo MD Unavailable [phone] Tonio Apodaca MD Unavailable Faheem Parish MD Unavailable [phone] Adithya Augustine DO Unavailable [phone] Andre Hernandez MD Unavailable Encounter Details Date Type Department Care Team (Late st Contact Info) Description 07/18/2022 CTD Holdingst Message Enc [facility], [address] [place], [place] [id number] Minna Segovia, ANP-BC Three [facility]. [address] [place], [place] [id number] Lab Results Social History Tobacco Use Types Packs/Day Years Used Date Smoking Tobacco: Former Cigarettes 1 10 0 03/27/1966 - 03/27/1976 Smokeless Tobacco: Never Comments:former smoker Alcohol Use Standard Drinks/Week Comments Yes 6 (1 standard drink = 0.6 oz pur e alcohol) socially AUDIT-C Answer Date Recorded Q1: How often do you have a drink containing alc ohol? 2-4 times a month 01/02/2021 Average Number of Drinks Not on file 021 Frequency of Binge Drinking Not on file 11/2020 PHQ-2 Answer Date Recorded PHQ-2 Score - If the patient scores above 3, please move on to questions 3-9 0 05/27/2022 Education Answer Date Recorded What is the highest level of school you have completed or the highest degree you have received? 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 No / Unsure 07/16/2022 9:50 AM PRODUCTION PLANNING SUPERVISOR documented as of this encounter Functional Status * RETIRED Are you deaf or do you have serious difficulty hearing Answer Date of Assessment Author Status Yes 11/01/2021 6:01 PM PRODUCTION PLANNING SUPERVISOR Activ e * RETIRED Are you blind or do you have serious difficulty seeing, even when wearing glasses? Answer Date of Assessment Author Status No 11/01/2021 6:01 PM PRODUCTION PLANNING SUPERVISOR Activ e * Do you have serious difficulty walking or climbing stairs? Answer Date of Assessment Author Status Yes 11/01/2021 6:01 PM PRODUCTION PLANNING SUPERVISOR Kira Olea R N Active * Do you have difficulty dressing or bathing? Answer Date of Assessment Author Status No 11/01/2021 6:01 PM PRODUCTION PLANNING SUPERVISOR Kira Olea R N Active * Because of a physical, mental, or emotional condition, do you have difficulty doing errands alone such as visiting a doctor's office or shopping? Answer Date of Assessment Author Status No 11/01/2021 6:01 PM PRODUCTION PLANNING SUPERVISOR Kira Olea R N Active documented as of this encounter Mental Status * Because of a physical, mental, or emotional condition, do you have serious difficulty concentrating, remembering, or making decisions? Answer Entry Date Author Status No 11/01/2021 6:01 PM PRODUCTION PLANNING SUPERVISOR Kira Olea R N Active documented in this encounter Plan of Treatment Upcoming Encounters Date Type Department Care Team (Late st Contact Info) Description 06/20/2025 11:35 AM CDT Allied Health/Nurse Visit [facility], [address] [place] [address] James Picektt MD Three [facility]. [address] [place] [address] 09/20/2025 12:00 PM PRODUCTION PLANNING SUPERVISOR Office Visit [facility], [address] [place] [address] James Pickett MD Three [facility]. [address] [place] [address] 09/27/2025 1:00 PM PRODUCTION PLANNING SUPERVISOR Office Visit [facility] [address] [place] [address] Saul Trevino MD [address] [place] [address] documented as of this encounter Goals Goal Patient Goal Type Associated Problems Recent Progress Patient-Stated? Author Patient will return to prior living situation and remain independent in ADLs upon discharge from hospital General Anna Quezada RN documented as of this encounter Visit Diagnoses Not on filedocumented in this encounter Additional Health Concerns Infection Onset Date Last Indicated Resolved Time COVID-19 Rule Out 08/06/2023 08/06/2023 08/06/2023 1:16 PM PRODUCTION PLANNING SUPERVISOR COVID-19 Rule Out 10/12/2023 10/12/2023 10/12/2023 8:48 AM PRODUCTION PLANNING SUPERVISOR COVID-19 Rule Out 07/27/2024 07/27/2024 07/27/2024 12:12 PM PRODUCTION PLANNING SUPERVISOR Assessment Noted Time PHQ-9 Depression Total Score: 0 11/01/19 2:48 PM PRODUCTION PLANNING SUPERVISOR documented as of this encounter Care Teams [address] Vendor Relationship Specialty Start Date End Date Saul Trevino MD PCP - General FAMILY PRACTICE 08/22/20 James Pickett MD Three [facility]. [facility] [address] [place] [address] [place] Food Photographer CARDIOVASCULAR DISEASE 03/01/16 Bismark Gerardo MD [address] [place] [address] [address] [place] [address] Consulting Physician PULMONARY DISEASE 06/21/21 Tonio Apodaca MD 3 [facility] [place] [address] Consulting Physician UROLOGY 06/21/21 Faheem Parish MD [address] [facility] [address] [place] [address] GASTROENTEROLOGY 06/21/21 Adithya Augustine DO [address] [facility] [address] [place] [address] Consulting Physician GASTROENTEROLOGY 06/21/21 Andre Hernandez MD [address] [facility] [address] [place] [address] Consulting Physician HEMATOLOGY/ONCOLOGY 06/21/21 documented as of this encounter
--- OUTSIDE RECORDS SUMMARY | 2025-04-22 13:36 | XMS_ITS | Encounter Summary ---
Author Organization [facility] Address [address] [place] [address] Care Team Providers Care Resident Inspector Name Role Phone Saul Trevino MD Primary Care Provider [phone] James Pickett MD Unavailable Bismark Gerardo MD Unavailable [phone] Tonio Apodaca MD Unavailable [phone] Faheem Parish MD Unavailable [phone] Adithya Augustine DO Unavailable [phone] Andre Hernandez MD Unavailable [phone] Encounter Details Date Type Department Care Team (Latest Contact Info) Description 04/21/2025 Travel Social History Tobacco Use Types Packs/Day Years [...] Sex Assigned at Male 07/05/2018 8:48 PM PST MANAGER Legal Sex Male 11:44 PM CDT Gender Identity Male 07/05/2018 8:48 PM PST MANAGER Sexual Orientation Straight 08/03/2018 2: 21 PM PST MANAGER Occupation Industry Job Start Date Job End Date 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 Answer Date of Assessment Author Status No 11/01/2021 6:01 PM PST MANAGER Activ e * Do you have serious difficulty walking or climbing stairs? Answer Date of Assessment Author Status Yes 11/01/2021 6:01 PM PST MANAGER Kira Olea R N Active * Do you have difficulty dressing or bathing? Answer Date of Assessment Author Status No 11/01/2021 6:01 PM PST MANAGER Kira Olea R N Active * Because of a physical, mental, or emotional condition, do you have difficulty doing errands alone such as visiting a doctor's office or shopping? Answer Date of Assessment Author Status No 11/01/2021 6:01 PM PST MANAGER Kira Olea R N Active * Calculated C-SSRS Risk Score (Lifetime/Recent) Answer Date of Assessment Author Status No Risk Indicated 04/21/2025 11:20 AM [place] Nancy Burt RN Active * [place] Suicide Severity Rating Scale (Screener/Recent Self-Report) Question Answer Date of Assessment Author Status 1. Wish to be (Past 1 Month) No 04/21/2025 11:20 AM Duyen Gregory RN Act messi 2. Non-Specific Active Suicidal Thoughts (Past 1 Month) No 04/21/2025 11:20 AM CDT Duyen Burt RN Act emssi 6. Suicidal Behavior (Lifetime) No 04/21/2025 11:20 AM CDT Duyen Burt RN Act messi documented as of this encounter Mental Status * Because of a physical, mental, or emotional condition, do you have serious difficulty concentrating, remembering, or making decisions? Answer Entry Date Author Status No 11/01/2021 6:01 PM PST MANAGER Kira Olea R N Active documented in this encounter Plan of Treatment Upcoming Encounters Date Type Department Care Team (Late st Contact Info) Description 06/20/2025 11:35 AM CDT Allied Health/Nurse Visit [facility] THREE [facility], [address] [place] [address] James Pickett MD Three [facility]. [address] [place], [place] [phone] 09/20/2025 12:00 PM PST MANAGER Office Visit [facility] THREE [facility], [address] [place], [place] [address] James Pickett MD Three [facility]. [address] [place], [place] [address] 09/27/2025 1:00 PM PST MANAGER Office Visit [facility] [address] [place] [address] Saul Trevino MD [address] [place] [address] documented as of this encounter Goals Goal Patient Goal Type Associated Problems Recent Progress Patient-Stated? Author Patient will return to prior living situation and remain independent in ADLs upon discharge from hospital General Anna Quezada RN documented as of this encounter Visit Diagnoses Not on filedocumented in this encounter Additional Health Concerns Assessment Noted Time PHQ-9 Depression Total Score: 0 09/26/19 23 2:21 PM PST MANAGER documented as of this encounter Care Teams Resident Inspector Relationship Specialty Start Date End Date Saul Trevino MD PCP - General FAMILY PRACTICE 08/22/20 James Pickett MD Three [facility]. [address] [place] [address] [employer] Manager CARDIOVASCULAR DISEASE 03/01/16 Bismark Gerardo MD 3rd [facility] [address] [place] [address] Consulting Physician PULMONARY DISEASE 06/21/21 Tonio Apodaca MD 3 [facility] [place] [address] Consulting Physician UROLOGY 06/21/21 Faheem Parish MD [address] [facility] [address] [place] [address] GASTROENTEROLOGY 06/21/21 Adithya Augustine DO [address] [facility] [address] [place] [address] Consulting Physician GASTROENTEROLOGY 06/21/21 Andre Hernandez MD [address] [facility] [address] [place], [place] [address] Consulting Physician HEMATOLOGY/ONCOLOGY 06/21/21 documented as of this encounter
--- OUTSIDE RECORDS SUMMARY | 2025-04-22 13:36 | XMS_ITS | Encounter Summary ---
Author Organization [facility] Address [address] [place] [address] Care Team Providers Care Gun Tester Name Role Phone Saul Trevino MD Primary Care Provider [phone] Saul Trevino MD Primary Care Provider [phone] Saul Trevino MD Primary Care Provider [phone] Saul Trevino MD Primary Care Provider [phone] Saul Trevino MD Primary Care Provider [phone] Saul Trevino MD Primary Care Provider [phone] Saul Trevino MD Primary Care Provider [phone] Saul Trevino MD Primary Care Provider [phone] Saul Trevino MD Primary Care Provider [phone] Saul Trevino MD Primary Care Provider [phone] Saul Trevino MD Primary Care Provider [phone] Saul Trevino MD Primary Care Provider [phone] Saul Trevino MD Primary Care Provider [phone] Saul Trevino MD Primary Care Provider [phone] Saul Trevino MD Primary Care Provider [phone] Saul Trevino MD Primary Care Provider [phone] Saul Trevino MD Primary Care Provider [phone] Saul Trevino MD Primary Care Provider [phone] Saul Trevino MD Primary Care Provider [phone] James Pickett MD Unavailable Bismark Gerardo MD Unavailable [phone] Tonio Apodaca MD Unavailable [phone] Faheem Parish MD Unavailable [phone] Adithya Augustine DO Unavailable [phone] Andre Hernandez MD Unavailable [phone] Encounter Details Date Type Department Care Team (Late st Contact Info) Description 11/28/2014 [facility] Conversion , Generic Conversion, Social History Tobacco Use Types Packs/Day Years Used Date Smoking Tobacco: Never Assessed Sex and Gender Information Value Date Recorded Sex Assigned at Male 07/05/2018 8:48 PM CITY TREASURER Legal Sex Male 11:44 PM CDT Gender Identity Male 07/05/2018 8:48 PM CITY TREASURER Sexual Orientation Straight 08/03/2018 2: 21 PM CITY TREASURER documented as of this encounter Plan of Treatment Upcoming Encounters Date Type Department Care Team (Late st Contact Info) Description 06/20/2025 11:35 AM CDT Allied Health/Nurse Visit [facility] THREE [facility], [address] [place], [place] [id number] James Pickett MD Three [facility]. [address] [place], [place] [address] 09/20/2025 12:00 PM CITY TREASURER Office Visit [facility] THREE [facility], [address] [place], [place] [address] James Pickett MD [facility]. [address] [place] [address] 09/27/2025 1:00 PM CITY TREASURER Office Visit [facility] [address] [place] [address] Saul Trevino MD [address] [place] [address] documented as of this encounter Visit Diagnoses Not on filedocumented in this encounter Additional Health Concerns Infection Onset Date Last Indicated Resolved Time COVID-19 Rule Out 03/08/2020 03/08/2020 03/08/2020 12:47 PM CDT COVID-19 Rule Out 11/05/2020 11/05/2020 11/06/2020 5:31 PM CITY TREASURER COVID-19 Rule Out 03/12/2021 03/12/2021 03/13/2021 1:44 PM CDT COVID-19 Rule Out 05/20/2021 05/20/2021 05/21/2021 11:12 AM CDT COVID-19 Rule Out 08/06/2023 08/06/2023 08/06/2023 1:16 PM CITY TREASURER COVID-19 Rule Out 10/12/2023 10/12/2023 10/12/2023 8:48 AM CITY TREASURER COVID-19 Rule Out 07/27/2024 07/27/2024 07/27/2024 12:12 PM CITY TREASURER documented as of this encounter Care Teams Gun Tester Relationship Specialty Start Date End Date Saul Trevino MD PCP - General 05/30/14 02/14/15 Saul Trevino MD PCP - General 02/15/15 09/10/15 Saul Trevino MD PCP - General 09/11/15 01/18/16 Saul Trevino MD PCP - General 01/19/16 01/20/16 Saul Trevino MD PCP - General 01/21/16 02/04/16 Saul Trevino MD PCP - General 02/05/16 02/06/16 Saul Trevino MD PCP - General 02/07/16 02/07/16 Saul Trevino MD PCP - General 02/08/16 02/11/16 Saul Trevino MD PCP - General 02/12/16 02/12/16 Saul Trevino MD PCP - General 02/13/16 02/14/16 Saul Trevino MD PCP - General 02/15/16 02/18/16 Saul Trevino MD PCP - General 02/19/16 02/19/16 Saul Trevino MD PCP - General 02/20/16 02/21/16 Saul Trevino MD PCP - General 02/22/16 02/25/16 Saul Trevino MD PCP - General 02/26/16 02/26/16 Saul Trevino MD PCP - General 02/27/16 02/28/16 Saul Trevino MD PCP - General 02/29/16 02/29/16 Saul Trevino MD PCP - General FAMILY PRACTICE 03/01/16 08/21/20 Saul Trevino MD PCP - General FAMILY PRACTICE 08/22/20 James Pickett MD [facility] [address] [place] [address] [place] Medical Assistant Internal Medicine CARDIOVASCULAR DISEASE 03/01/16 Bismark Gerardo MD [address] [place] [address] [address] [place] [address] Consulting Physician PULMONARY DISEASE 06/21/21 Tonio Apodaca MD [address] [place] [address] [place] [address] Consulting Physician UROLOGY 06/21/21 Faheem Parish MD [address] [place] [address] [address] [place] [address] GASTROENTEROLOGY 06/21/21 Adithya Augustine DO [address] [place] [address] [address] [place], [place] [address] Consulting Physician GASTROENTEROLOGY 06/21/21 Andre Hernandez MD [address] [place] [address] [address] [place], [place] [address] Consulting Physician HEMATOLOGY/ONCOLOGY 06/21/21 documented as of this encounter
--- OUTSIDE RECORDS SUMMARY | 2025-04-22 13:36 | XMS_ITS | Encounter Summary ---
Author Organization [facility] Address [address] [place] [address] Care Team Providers Care Other Sports Official Name Role Phone Saul Trevino MD Primary Care Provider [phone] Saul Trevino MD Primary Care Provider [phone] Saul Trevino MD Primary Care Provider [phone] Saul Trevino MD Primary Care Provider [phone] Saul Trevino MD Primary Care Provider [phone] Saul Trevino MD Primary Care Provider [phone] Saul Trevino MD Primary Care Provider [phone] Saul Trevino MD Primary Care Provider [phone] Saul Trevino MD Primary Care Provider [phone] Saul Trevino MD Primary Care Provider [phone] Saul Trevino MD Primary Care Provider [phone] Saul Trevino MD Primary Care Provider [phone] Saul Trevino MD Primary Care Provider [phone] Saul Trevino MD Primary Care Provider [phone] Saul Trevino MD Primary Care Provider Saul Trevino MD Primary Care Provider [phone] Saul Trevino MD Primary Care Provider [phone] Saul Trevino MD Primary Care Provider [phone] Saul Trevino MD Primary Care Provider [phone] James Pickett MD Unavailable Bismark Gerardo MD Unavailable [phone] Tonio Apodaca MD Unavailable [phone] Faheem Parish MD Unavailable [phone] Adithya Augustine DO Unavailable [phone] Andre Hernandez MD Unavailable [phone] Encounter Details Date Type Department Care Team (Late st Contact Info) Description 05/24/2014 Abstract [facility] Conversion , Generic Conversion, Social History Tobacco Use Types Packs/Day Years Used Date Smoking Tobacco: Never Assessed Sex and Gender Information Value Date Recorded Sex Assigned at Male 07/05/2018 8:48 PM RESIDENTIAL DRIVER Legal Sex Male 11:44 PM CDT Gender Identity Male 07/05/2018 8:48 PM RESIDENTIAL DRIVER Sexual Orientation Straight 08/03/2018 2: 21 PM RESIDENTIAL DRIVER documented as of this encounter Plan of Treatment Upcoming Encounters Date Type Department Care Team (Late st Contact Info) Description 06/20/2025 11:35 AM CDT Allied Health/Nurse Visit [facility] THREE [facility], [address] [place], [place] [id number] James Pickett MD Three [facility]. [address] [place], [place] [address] 09/20/2025 12:00 PM RESIDENTIAL DRIVER Office Visit [facility] THREE [facility], [address] [place], [place] [id number] James Pickett MD [facility]. [address] [place] [address] 09/27/2025 1:00 PM RESIDENTIAL DRIVER Office Visit [facility] [address] [place] [address] Saul Trevino MD [address] [place] [address] documented as of this encounter Visit Diagnoses Not on filedocumented in this encounter Additional Health Concerns Infection Onset Date Last Indicated Resolved Time COVID-19 Rule Out 03/08/2020 03/08/2020 03/08/2020 12:47 PM CDT COVID-19 Rule Out 11/05/2020 11/05/2020 11/06/2020 5:31 PM RESIDENTIAL DRIVER COVID-19 Rule Out 03/12/2021 03/12/2021 03/13/2021 1:44 PM CDT COVID-19 Rule Out 05/20/2021 05/20/2021 05/21/2021 11:12 AM CDT COVID-19 Rule Out 08/06/2023 08/06/2023 08/06/2023 1:16 PM RESIDENTIAL DRIVER COVID-19 Rule Out 10/12/2023 10/12/2023 10/12/2023 8:48 AM RESIDENTIAL DRIVER COVID-19 Rule Out 07/27/2024 07/27/2024 07/27/2024 12:12 PM RESIDENTIAL DRIVER documented as of this encounter Care Teams Other Sports Official Relationship Specialty Start Date End Date Saul [...] General FAMILY PRACTICE 08/22/20 James Pickett MD [facility] [address] [place] [address] [place] Manager Paper CARDIOVASCULAR DISEASE 03/01/16 Bismark Gerardo MD [address] [place] [address] [address] [place] [address] Consulting Physician PULMONARY DISEASE 06/21/21 Tonio Apodaca MD [address] [place] [address] [place] [address] Consulting Physician UROLOGY 06/21/21 Faheem Parish MD [address] [place] [address] [address] [place] [address] GASTROENTEROLOGY 06/21/21 Adithya Augustine DO [address] [place] [address] [address] [place], [place] [address] Consulting Physician GASTROENTEROLOGY 06/21/21 Andre Hernandez MD [address] [place] [address] [address] [place], [place] [address] Consulting Physician HEMATOLOGY/ONCOLOGY 06/21/21 documented as of this encounter
--- OUTSIDE RECORDS SUMMARY | 2025-04-22 13:36 | XMS_ITS | Encounter Summary ---
Author Organization [facility] Address [address] [place] [address] Care Team Providers Care Window Clerk Name Role Phone Saul Trevino MD Primary Care Provider [phone] James Pickett MD Unavailable Bismark Gerardo MD Unavailable Tonio Apodaca MD Unavailable Faheem Parish MD Unavailable Adithya Augustine DO Unavailable [phone] Andre Hernandez MD Unavailable Encounter Details Date Type Department Care Team (Late st Contact Info) Description 05/29/2023 Hospital Orders Only [facility] Security Control Room Officer [place], [place] [id number] James Pickett MD Three [facility]. 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 Answer Date of Assessment Author Status No 11/01/2021 6:01 PM SLEEP LAB TECHNICIAN Activ e * Do you have serious difficulty walking or climbing stairs? Answer Date of Assessment Author Status Yes 11/01/2021 6:01 PM SLEEP LAB TECHNICIAN Kira Olea R N Active * Do you have difficulty dressing or bathing? Answer Date of Assessment Author Status No 11/01/2021 6:01 PM SLEEP LAB TECHNICIAN Kira Olea R N Active * Because of a physical, mental, or emotional condition, do you have difficulty doing errands alone such as visiting a doctor's office or shopping? Answer Date of Assessment Author Status No 11/01/2021 6:01 PM SLEEP LAB TECHNICIAN Kira Olea R N Active * Calculated C-SSRS Risk Score (Lifetime/Recent) Answer Date of Assessment Author Status No Risk Indicated 05/30/2023 7:15 AM CDT EmFrancia vega RN Active * [place] Suicide Severity Rating Scale (Screener/Recent Self-Report) Question Answer Date of Assessment Author Status 1. Wish to be (Past 1 Month) No 05/30/2023 7:15 AM CDT Francia Potter RN Active 2. Non-Specific Active Suicidal Thoughts (Past 1 Month) No 05/30/2023 7:15 AM [place] Francia Potter RN Active 6. Suicidal Behavior (Lifetime) No 05/30/2023 7:15 AM CDT Francia Potter RN Active documented as of this encounter Mental Status * Because of a physical, mental, or emotional condition, do you have serious difficulty concentrating, remembering, or making decisions? Answer Entry Date Author Status No 11/01/2021 6:01 PM SLEEP LAB TECHNICIAN Kira Olea R N Active documented in this encounter Plan of Treatment Upcoming Encounters Date Type Department Care Team (Late st Contact Info) Description 06/20/2025 11:35 AM CDT Allied Health/Nurse Visit [place] [facility], [address] [address] James Pickett MD [facility]. [facility] [address] [place] [address] 09/20/2025 12:00 PM SLEEP LAB TECHNICIAN Office Visit [place] [facility], [facility] [address] [place] [address] James Pickett MD [facility]. [facility] [address] [place] [address] 09/27/2025 1:00 PM SLEEP LAB TECHNICIAN Office Visit [facility] [address] [place] [address] Saul Trevino MD [address] [place] [address] documented as of this encounter [...] Rule Out 08/06/2023 08/06/2023 08/06/2023 1:16 PM SLEEP LAB TECHNICIAN COVID-19 Rule Out 10/12/2023 10/12/2023 10/12/2023 8:48 AM SLEEP LAB TECHNICIAN COVID-19 Rule Out 07/27/2024 07/27/2024 07/27/2024 12:12 PM SLEEP LAB TECHNICIAN Assessment Noted Time PHQ-9 Depression Total Score: 0 09/26/19 2:21 PM SLEEP LAB TECHNICIAN documented as of this encounter Care Teams Window Clerk Relationship Specialty Start Date End Date Saul Trevino MD PCP - General FAMILY PRACTICE 08/22/20 James Pickett MD Three [facility]. [address] [place] [address] Hustler Milk Truck Driver CARDIOVASCULAR DISEASE 03/01/16 Bismark Gerardo MD 3rd [facility] [address] [place] [address] Consulting Physician PULMONARY DISEASE 06/21/21 Tonio Apodaca MD [address] [facility] [place] [address] Consulting Physician UROLOGY 06/21/21 Faheem Parish MD [address] [facility] [address] [place], [place] [address] GASTROENTEROLOGY 06/21/21 Adithya Augustine DO [address] [facility] [address] [place] [address] Consulting Physician GASTROENTEROLOGY 06/21/21 Andre Hernandez MD [address] [facility] [address] [place], [place] [address] Consulting Physician HEMATOLOGY/ONCOLOGY 06/21/21 documented as of this encounter
--- OUTSIDE RECORDS SUMMARY | 2025-04-22 13:36 | XMS_ITS | Encounter Summary ---
Author Organization [facility] Address [address] [place] [address] Care Team Providers Care Systems Test Analyst Name Role Phone Saul Trevino MD Primary Care Provider James Pickett MD Unavailable Bismark Gerardo MD Unavailable Tonio Apodaca MD Unavailable Faheem Parish MD Unavailable Adithya Augustine DO Unavailable [phone] Andre Hernandez MD Unavailable [phone] Encounter Details Date Type Department Care Team (Late st Contact Info) Description 10/15/2022 Stylechit Message Enc [place] [facility] THREE [facility], [address] [place] [address] Minna Segovia, ANP-BC Three [facility]. 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 No / Unsure 10/16/2022 8:28 AM DIRECTOR OF FAMILY SERVICE CENTER documented as of this encounter Functional Status * RETIRED Are you deaf or do you have serious difficulty hearing Answer Date of Assessment Author Status Yes 11/01/2021 6:01 PM DIRECTOR OF FAMILY SERVICE CENTER Activ e * RETIRED Are you blind or do you have serious difficulty seeing, even when wearing glasses? Answer Date of Assessment Author Status No 11/01/2021 6:01 PM DIRECTOR OF FAMILY SERVICE CENTER Activ e * Do you have serious difficulty walking or climbing stairs? Answer Date of Assessment Author Status Yes 11/01/2021 6:01 PM DIRECTOR OF FAMILY SERVICE CENTER Kira Olea R N Active * Do you have difficulty dressing or bathing? Answer Date of Assessment Author Status No 11/01/2021 6:01 PM DIRECTOR OF FAMILY SERVICE CENTER Kira Olea R N Active * Because of a physical, mental, or emotional condition, do you have difficulty doing errands alone such as visiting a doctor's office or shopping? Answer Date of Assessment Author Status No 11/01/2021 6:01 PM DIRECTOR OF FAMILY SERVICE CENTER Kira Olea R N Active documented as of this encounter Mental Status * Because of a physical, mental, or emotional condition, do you have serious difficulty concentrating, remembering, or making decisions? Answer Entry Date Author Status No 11/01/2021 6:01 PM DIRECTOR OF FAMILY SERVICE CENTER Kira Olea R N Active documented in this encounter Plan of Treatment Upcoming Encounters Date Type Department Care Team (Late st Contact Info) Description 06/20/2025 11:35 AM CDT Allied Health/Nurse Visit [facility] THREE [facility], [address] [place] [address] James Pickett MD Three [facility]. [address] [place], [place] [address] 09/20/2025 12:00 PM DIRECTOR OF FAMILY SERVICE CENTER Office Visit [facility] THREE [facility], [facility] [address] [place] [address] James Pickett MD Three [facility]. [address] [place], [place] [address] 09/27/2025 1:00 PM DIRECTOR OF FAMILY SERVICE CENTER Office Visit [facility] [address] [place] [address] Saul Trevino MD [address] [place] [address] documented as of this encounter Goals [...] Rule Out 08/06/2023 08/06/2023 08/06/2023 1:16 PM DIRECTOR OF FAMILY SERVICE CENTER COVID-19 Rule Out 10/12/2023 10/12/2023 10/12/2023 8:48 AM DIRECTOR OF FAMILY SERVICE CENTER COVID-19 Rule Out 07/27/2024 07/27/2024 07/27/2024 12:12 PM DIRECTOR OF FAMILY SERVICE CENTER Assessment Noted Time PHQ-9 Depression Total Score: 0 09/26/19 23 2:21 PM DIRECTOR OF FAMILY SERVICE CENTER documented as of this encounter Care Teams Systems Test Analyst Relationship Specialty Start Date End Date Saul Trevino MD PCP - General FAMILY PRACTICE 08/22/20 James Pickett MD Three [facility]. [address] [place] [address] [place] Hand Mexican Food Maker CARDIOVASCULAR DISEASE 03/01/16 Bismark Gerardo MD 3rd [facility] [address] [place] [address] Consulting Physician PULMONARY DISEASE 06/21/21 Tonio Apodaca MD [address] [facility] [place] [address] Consulting Physician UROLOGY 06/21/21 Faheem Parish MD [address] [facility] [address] [place] [address] GASTROENTEROLOGY 06/21/21 Adithya Augustine DO [address] [facility] [address] [place] [address] Consulting Physician GASTROENTEROLOGY 06/21/21 Andre Hernandez MD [address] [facility] [address] [place] [address] Consulting Physician HEMATOLOGY/ONCOLOGY 06/21/21 documented as of this encounter
--- OUTSIDE RECORDS SUMMARY | 2025-04-22 13:36 | XMS_ITS | Clinical Summary ---
Author Organization [facility] Address [address] [facility] [place] [address] Care Team Providers Care Ground Operations Crew Member Name Role Phone Unavailable Primary Care Provider Unavailabl e Source Comments [facility],non-owned Affiliates and Associated Physician Practices is amultiple site organization consisting of ambulatory clinics and hospital sitesin [place], [place], [place] and [place]. This disclosure is being madepursuant to the Care Everywhere program and may not contain all information available regarding this patient. Last updated 18.[facility] Our Security Team Social History Tobacco Use Types Packs/Day Years Used Date Smoking Tobacco: Never Assessed Sex and Gender Information Value Date Recorded Sex Assigned at Not on file Legal Sex Male 6:27 PM STRATEGIC PLANNING ANALYST Gender Identity Not on file Sexual Orientation Not on file Plan of Treatment Health Maintenance Due Date Last Done Comments DTAP/TDAP/TD VACCINES (1 - Tdap) 1964 PNEUMOCOCCAL VACCINE 50+ (1 of 1 - PCV) 1995 ZOSTER VACCINE (1 of 2) 1995 Respiratory Syncytial Virus (RSV) Vaccine Pt: or over 60 yrs (1 - 1-dose 75+ series) 2020 COVID-19 VACCINE ( - 2023-2 5 season) 2024 DEPRESSION SCREENING 09/01/2024 INFLUENZA VACCINE (#1) 2025 HEPATITIS B VACCINE Aged Out No longe r eligible based on patient's age to complete this topic HIB VACCINE Aged Out No longer eligi ble based on patient's age to complete this topic HPV VACCINE Aged Out No longer eligi ble based on patient's age to complete this topic MENINGOCOCCAL (Group B) VACC INE SHARED DECISION-MAKING Aged Out No longer eligibl e based on patient's age to complete this topic MENINGOCOCCAL GROUPS A/C/Y/W VACCINE Aged Out No longer eligible b ased on patient's age to complete this topic Insurance MEDICARE [facility]
--- OUTSIDE RECORDS SUMMARY | 2025-04-22 13:36 | XMS_ITS | Encounter Summary ---
Author Organization [facility] Address [address] [place] [address] Care Team Providers Care Automotive Design Layout Drafter Name Role Phone Saul Trevino MD Primary Care Provider [phone] James Pickett MD Unavailable Bismark Gerardo MD Unavailable Tonio Apodaca MD Unavailable Faheem Parish MD Unavailable [phone] Adithya Augustine DO Unavailable [phone] Andre Hernandez MD Unavailable Encounter Details Date Type Department Care Team (Late st Contact Info) Description 02/27/2023 Hospital Orders Only [facility] Automobile Lights Assembler [address] [place], [place] [id number] James Pickett MD Three [facility]. 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 Answer Date of Assessment Author Status No 11/01/2021 6:01 PM EXCEL DEVELOPER Activ e * Do you have serious difficulty walking or climbing stairs? Answer Date of Assessment Author Status Yes 11/01/2021 6:01 PM EXCEL DEVELOPER Kira Olea R N Active * Do you have difficulty dressing or bathing? Answer Date of Assessment Author Status No 11/01/2021 6:01 PM EXCEL DEVELOPER Kira Olea R N Active * Because of a physical, mental, or emotional condition, do you have difficulty doing errands alone such as visiting a doctor's office or shopping? Answer Date of Assessment Author Status No 11/01/2021 6:01 PM EXCEL DEVELOPER Kira Olea R N Active documented as of this encounter Mental Status * Because of a physical, mental, or emotional condition, do you have serious difficulty concentrating, remembering, or making decisions? Answer Entry Date Author Status No 11/01/2021 6:01 PM EXCEL DEVELOPER Kira Olea R N Active documented in this encounter Plan of Treatment Upcoming Encounters Date Type Department Care Team (Late st Contact Info) Description 06/20/2025 11:35 AM CDT Allied Health/Nurse Visit [facility] THREE [facility], [address] [place] [address] James Pickett MD Three [facility]. [address] [place] [address] 09/20/2025 12:00 PM EXCEL DEVELOPER Office Visit [facility] THREE [facility], [address] [place] [address] James Pickett MD Three [facility]. [address] [place] [address] 09/27/2025 1:00 PM EXCEL DEVELOPER Office Visit [facility] [address] [place] [address] Saul Trevino MD [address] [place] [address] documented as of this encounter [...] Rule Out 08/06/2023 08/06/2023 08/06/2023 1:16 PM EXCEL DEVELOPER COVID-19 Rule Out 10/12/2023 10/12/202310/12/2023 8:48 AM EXCEL DEVELOPER COVID-19 Rule Out 07/27/2024 07/27/2024 07/27/2024 12:12 PM EXCEL DEVELOPER Assessment Noted Time PHQ-9 Depression Total Score: 0 09/26/19 23 2:21 PM EXCEL DEVELOPER documented as of this encounter Care Teams Automotive Design Layout Drafter Relationship Specialty Start Date End Date Saul Trevino MD PCP - General FAMILY PRACTICE 08/22/20 James Pickett MD Three [facility]. [address] [place] [address] [place] Fixed Income Portfolio Manager CARDIOVASCULAR DISEASE 03/01/16 Bismark Gerardo MD 3rd [facility] [address] [place] [address] Consulting Physician PULMONARY DISEASE 06/21/21 Tonio Apodaca MD [address] [facility] [place] [address] Consulting Physician UROLOGY 06/21/21 Faheem Parish MD [address] [facility] [address] [place] [address] GASTROENTEROLOGY 06/21/21 Adithya Augustine DO [address] [facility] [address] [place] [address] Consulting Physician GASTROENTEROLOGY 06/21/21 Andre Hernandez MD [address] [facility] [address] [place] [address] Consulting Physician HEMATOLOGY/ONCOLOGY 06/21/21 documented as of this encounter
--- OUTSIDE RECORDS SUMMARY | 2025-04-22 13:36 | XMS_ITS | Encounter Summary ---
Author Organization [facility] Address [address] [place] [address] Care Team Providers Care Shell Molder Name Role Phone Saul Trevino MD Primary Care Provider James Pickett MD Unavailable Bismark Gerardo MD Unavailable Tonio Apodaca MD Unavailable Faheem Parish MD Unavailable Adithya Augustine DO Unavailable [phone] Andre Hernandez MD Unavailable [phone] Encounter Details Date Type Department Care Team (Late st Contact Info) Description 02/16/2025 [employer] Message Enc [place] [facility], [address] [place], [place] [id number] Minna Segovia, ANP-BC Three [facility]. 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 Answer Date of Assessment Author Status No 11/01/2021 6:01 PM IMPREGNATION OPERATOR Activ e * Do you have serious difficulty walking or climbing stairs? Answer Date of Assessment Author Status Yes 11/01/2021 6:01 PM IMPREGNATION OPERATOR Kira Olea R N Active * Do you have difficulty dressing or bathing? Answer Date of Assessment Author Status No 11/01/2021 6:01 PM IMPREGNATION OPERATOR Kira Olea R N Active * Because of a physical, mental, or emotional condition, do you have difficulty doing errands alone such as visiting a doctor's office or shopping? Answer Date of Assessment Author Status No 11/01/2021 6:01 PM IMPREGNATION OPERATOR Kira Olea R N Active * Calculated C-SSRS Risk Score (Lifetime/Recent) Answer Date of Assessment Author Status No Risk Indicated 02/17/2025 9:47 AM CDT Mir Vanegas RN Active * [place] Suicide Severity Rating Scale (Screener/Recent Self-Report) Question Answer Date of Assessment Author Status 1. Wish to be (Past 1 Month) No 02/17/2025 9:47 AM CDT Shira Vanegas, RN Adama reece 2. Non-Specific Active Suicidal Thoughts (Past 1 Month) No 02/17/2025 9:47 AM CDT Shira Vanegas, RN Adama reece 6. Suicidal Behavior (Lifetime) No 02/17/2025 9:47 AM CDT Shira Vanegas, RN Adama reece documented as of this encounter Mental Status * Because of a physical, mental, or emotional condition, do you have serious difficulty concentrating, remembering, or making decisions? Answer Entry Date Author Status No 11/01/2021 6:01 PM IMPREGNATION OPERATOR Kira Olea R N Active documented in this encounter Plan of Treatment Upcoming Encounters Date Type Department Care Team (Late st Contact Info) Description 06/20/2025 11:35 AM CDT Allied Health/Nurse Visit [place] [facility], [facility] [address] [place] [address] James Pickett MD [facility]. [facility] [address] [place] [address] 09/20/2025 12:00 PM IMPREGNATION OPERATOR Office Visit [place] [facility], [facility] [address] [place] [address] James Pickett MD [facility]. [facility] [address] [place] [address] 09/27/2025 1:00 PM IMPREGNATION OPERATOR Office Visit [facility] [address] [place] [address] Saul Trevino MD [address] [place] [address] documented as of this encounter Goals Goal Patient Goal Type Associated Problems Recent Progress Patient-Stated? Author Patient will return to prior living situation and remain independent in ADLs upon discharge from [facility] Anna Wall RN documented as of this encounter Visit Diagnoses Not on filedocumented in this encounter Additional Health Concerns Assessment Noted Time PHQ-9 Depression Total Score: 0 09/26/19 23 2:21 PM IMPREGNATION OPERATOR documented as of this encounter Care Teams Shell Molder Relationship Specialty Start Date End Date Saul Trevino MD PCP - General FAMILY PRACTICE 08/22/20 James Pickett MD [facility]. [address] [place] [address] Sylvia Agricultural Pilot CARDIOVASCULAR DISEASE 03/01/16 Bismark Gerardo MD 3rd [facility] [address] [place] [address] Consulting Physician PULMONARY DISEASE 06/21/21 Tonio Apodaca MD [address] [facility] [place] [address] Consulting Physician UROLOGY 06/21/21 Faheem Parish MD [address] [facility] [address] [place] [address] GASTROENTEROLOGY 06/21/21 Adithya Augustine DO [address] [facility] [address] [place] [address] Consulting Physician GASTROENTEROLOGY 06/21/21 Andre Hernandez MD [address] [facility] [address] [place] [address] Consulting Physician HEMATOLOGY/ONCOLOGY 06/21/21 documented as of this encounter
--- OUTSIDE RECORDS SUMMARY | 2025-04-22 13:36 | XMS_ITS | Encounter Summary ---
Author Organization [facility] Address [address] [facility] [place] [address] Care Team Providers Care Medical Logistics Specialist Name Role Phone Unavailable Primary Care Provider Unavailabl e Encounter Details Date Type Department Care Team (Late st Contact Info) Description 01/18/2021 Lab Requisition [facility] DermPath Lab [address] [place] [id number] Ren Browne MD [address] [place] [address] Social History Tobacco Use Types Packs/Day Years Used Date Smoking Tobacco: Never Assessed Sex and Gender Information Value Date Recorded Sex Assigned at Not on file Legal Sex Male 6:27 PM PIZZA COOK Gender Identity Not on file Sexual Orientation Not on file documented as of this encounter Plan of Treatment Not on file documented as of this encounter Procedures Procedure Name Priority Date/Time Associated Diagnosis Comments DERMATOPATHOLOGY Routine 01/16/2021 3:33 AM CDT documented in this encounter Results * DERMATOPATHOLOGY (01/16/2021 3:33 AM CDT) Case Report Dermatopathology Report Case: [id number] Authorizing Provider: Ren Browne MD Collected: 01/16/2021 03:33 AM Ordering Location: [facility] DermPath Lab Received: 01/18/2021 07:28 AM Pathologist: Edel Lisa MD Specimens: A) - Skin, left helix B) - Skin, right deltoid C) - Skin, right chest 4:19 PM CDT DERMATOPATHOLOGY LABORATORY Final Diagnosis Specimen A. 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 SKIN, right deltoid: ACTINIC KERATOSIS, LICHENOID (L57.0) Specimen C. SKIN, right chest: ACTINIC KERATOSIS, LICHENOID (L57.0) 4:19 PM T DERMATOPATHOLOGY LABORATORY at 1618 CDT Clinical History A: BCC vs AK vs SCC. Path # [id number]. B: AK vs BCC vs SCC. Path # [id number]. C: AK vs BCC vs SCC. Path # [id number]. 4:19 PM CDT DERMATOPATHOLOGY LABORATORY Gross Description Specimen A: Received is one formalin filled container labeled with the patient's name and designated left helix. The specimen consists of a shave biopsy measuring [id number]. Jar 0. Specimen B: Received is one formalin filled container labeled with the patient's name and designated right deltoid. The specimen consists of a shave biopsy measuring [id number]. Jar 0. Specimen C: Received is one formalin filled container labeled with the patient's name and designated right chest. The specimen consists of a shave biopsy measuring [id number]. Jar 0. 4:19 PM CDT DERMATOPATHOLOGY LABORATORY Microscopic Description Specimen A. SKIN, left helix: The epidermis shows parakeratosis, full thickness disorderly maturation of keratinocytes, mitoses at different levels, and dyskeratotic cells. The lesion extends to the base of the biopsy. COMMENT: An invasive squamous cell carcinoma cannot be ruled out. Specimen B. SKIN, right deltoid: There is focal parakeratosis. The lower half of the epidermis shows disorderly maturation of keratinocytes with nuclear pleomorphism. The dermis shows a band-like, chronic inflammatory infiltrate with occasional apoptotic keratinocytes and some basal vacuolar alteration. Specimen C. SKIN, right chest: There is focal parakeratosis. The lower half of the epidermis shows disorderly maturation of keratinocytes with nuclear pleomorphism. The dermis shows a band-like, chronic inflammatory infiltrate with occasional apoptotic keratinocytes and some basal vacuolar alteration. 4:19 PM CDT DERMATOPATHOLOGY LABORATORY Disclaimer An external and internal positive and negative controls are appropriate for the histochemical, immunohistochemical and immunofluorescence stain(s) in this case (if any), except where stated explicitly. The performance characteristics of the stain(s) cited in this report were developed and its performance characteristic determined by the Dermatopathology Laboratory at [facility], directed by Dr. Taylor Cortez. These tests need not be, and therefore are not, approved by the [place] Food and Drug Administration. The tests are used for clinical purposes. Billing Codes Specimen Charges Stain Charges 69693 55286 35822 1 1 1 1 4:19 PM CDT DERMATOPATHOLOGY LABORATORY Embedded Images 1 4:19 PM CDT DERMATOPATHOLOGY LABORATORY Pathology/Cytology TISSUE SPECIMEN FROM SKIN / Unknown 01/16/2021 3:33 AM CDT 01/18/2021 7:28 AM CDT Miscellaneous samples (specimen) TISSUE SPECIMEN FROM SKIN / Unknown 01/16/2021 3:33 AM CDT 01/18/2021 7:28 AM CDT Miscellaneous samples (specimen) TISSUE SPECIMEN FROM SKIN / Unknown 01/16/2021 3:33 AM CDT 01/18/2021 7:28 AM CDT us Ren Browne MD LAB - PATHOLOGY/CYTOLOGY ORDER LESVIA Final Result DERMATOPATHOLOGY LABORATORY [facility] - Department of Dermatology [facility] Medicine [address] [place] [address], [address] [phone] documented in this encounter Visit Diagnoses Not on filedocumented in this encounter
--- OUTSIDE RECORDS SUMMARY | 2025-04-22 13:36 | XMS_ITS | Clinical Summary ---
Author Organization [facility] Address [address], [address] [place] [address] Phone Care Team Providers Care Wheel Alignment Technician Name Role Phone Saul Trevino MD Primary Care Provider [phone] Allergies Active Allergy Reactions Criticality Noted Date Comments Ciprofloxacin Swelling,Unknown 05/14/2020 Medications nitroGLYCERIN (NITROSTAT) 0.4 MG SL Tablet 0.4 mg by Sublingual route. 8 Active atorvastatin (LIPITOR) 20 MG Tablet Take 20 mg by mouth. 9 Active warfarin (COUMADIN) 5 MG Tablet Take 5 mg by mouth. 0 Active aspirin EC 81 MG Tablet Delayed Response Take 81 mg by mouth. Active pantoprazole (PROTONIX) 20 MG Tablet Delayed Response Take 20 mg by mouth. 9 Active lisinopril (PRINIVIL, ZESTRIL) 10 MG Tablet Take 10 mg by mouth. 9 Active brimonidine (ALPHAGAN) 0.2 % Solution Place 1 Drop in affected eye(s). 8 Active Cholecalciferol (VITAMIN D-3) 125 MCG (5000 UT) Tablet Take 5,000 Units by mouth. 8 Active albuterol 108 (90 Base) MCG/ACT Aerosol Solution INHALE 2 PUFFS BY ORAL INHALATION EVERY 4 HOURS NEEDED FOR BREATHING. SHAKE WELL. RINSE MOUTHPIECE FREQUENTLY TO PREVENT CLOGGING. 1 Active Active Problems Problem Noted Date Diagnosed Date Acute deep vein thrombosis ( DVT) of brachial vein of left upper extremity 03/30/2020 Family History Medical History Relation Name Comments Cancer Father Cancer Mother Relation Name Status Comments Father Mother Social History Tobacco Use Types Packs/Day Years Used Date Smoking Tobacco: Former Cigarettes Q uit: 03/30/1976 Smokeless Tobacco: Never Alcohol Use Standard Drinks/Week Comments Yes 2 (1 standard drink = 0.6 oz pur e alcohol) PHQ-2 Answer Date Recorded Total Score - Questions 1-9 0 12/30 Sex and Gender Information Value Date Recorded Sex Assigned at Not on file Legal Sex Male 4:08 PM CDT Gender Identity Not on file Sexual Orientation Not on file Last Filed Vital Signs Vital Sign Reading Time Taken Comments Blood Pressure 144/80 01/11/2021 11:53 AM CDT Pulse 78 01/11/2021 11:53 AM CDT Temperature 36.2 C (97.2 F) 01/11/2021 11:53 AM CDT Respiratory Rate 18 01/11/2021 11:53 AM CDT Oxygen Saturation 96% 01/11/2021 11:53 AM CDT Inhaled Oxygen Concentration - - Weight 96.2 kg (212 lb) 01/11/2021 11:53 AM CDT Height 174.6 cm (5' 8.75) 01/11/2021 11:53 AM C DT Body Mass Index 31.54 01/11/2021 11:53 AM CDT Plan of Treatment Health Maintenance Due Date Last Done Comments Hepatitis C Virus (HCV) Screening 1945 TdaP Immunization 1945 Pneumococcal Immunization (50+ years) (2 of 2 - PCV20 or PCV21) 06/24/2014 06/24/2013 Respiratory Syncytial Virus (RSV) Immunization (Adult) (1 - 1-dose 75+ series) 2020 SARS-COV-2 Immunization (3 - season) 2024 10/23/2020, 09/25/2020 Influenza Immunization (#1) 05/02/202501/2020, 06/03/2019, 06/12/2018, Additional history exists Pneumococcal Immunization Combined Discontinued 06/24/2013 Zoster Immunization Completed 07/10/2018, 8 Hepatitis B Immunization Aged Out No longer eligible based on patient's age to complete this topic Human Papillomavirus (HPV) Immunization Aged Out No longer eligible based on patient's age to complete this topic Meningococcal Immunization (ACWY) Aged Out No longer eligible based on patient's age to complete this topic Rotavirus Immunization Aged Out No lo nger eligible based on patient's age to complete this topic Insurance [facility] Care Teams Wheel Alignment Technician Relationship Specialty Start Date End Date Saul Trevino MD PCP - General Family Medicine 03/13/20
--- OUTSIDE RECORDS SUMMARY | 2025-04-22 13:36 | XMS_ITS | Encounter Summary ---
Author Organization [facility] Address [address] [place] [address] Care Team Providers Care Rn Icu Name Role Phone Saul Trevino MD Primary Care Provider James Pickett MD Unavailable Bismark Gerardo MD Unavailable Tonio Apodaca MD Unavailable Faheem Parish MD Unavailable Adithya Augustine DO Unavailable [phone] Andre Hernandez MD Unavailable Encounter Details Date Type Department Care Team (Late st Contact Info) Description 09/11/2020 Generaytort Message Enc [place] [facility] [facility], [address] [place], [place] [id number] Minna Segovia, ANP-BC Three [facility]. [address] [place], [place] [phone] RE: Medication Questions Social History Tobacco Use Types Packs/Day Years Used Date Smoking Tobacco: Never Cigarettes 1 10 - 03/27/1976 Smokeless Tobacco: Never Alcohol Use Standard Drinks/Week Comments Yes 0 (1 standard drink = 0.6 oz pur e alcohol) socially PHQ-2 Answer Date Recorded PHQ-2 Score 0 07/25/2020 Education Answer Date Recorded What is the highest level of school you have completed or the highest degree you have received? 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 No / Unsure 09/07/2020 7:07 AM MANAGER OF DATA documented as of this encounter Functional Status * RETIRED Are you deaf or do you have serious difficulty hearing Answer Date of Assessment Author Status No 08/23/2020 2:54 AM MANAGER OF DATA Activ e * RETIRED Are you blind or do you have serious difficulty seeing, even when wearing glasses? Answer Date of Assessment Author Status No 08/23/2020 2:54 AM MANAGER OF DATA Activ e * Do you have serious difficulty walking or climbing stairs? Answer Date of Assessment Author Status Yes 08/23/2020 2:54 AM Sierra Nino RN Active * Do you have difficulty dressing or bathing? Answer Date of Assessment Author Status No 08/23/2020 2:54 AM Sierra Nino RN Active * Because of a physical, mental, or emotional condition, do you have difficulty doing errands alone such as visiting a doctor's office or shopping? Answer Date of Assessment Author Status No 08/23/2020 2:54 AM Sierra Nino RN Active documented as of this encounter Mental Status * Because of a physical, mental, or emotional condition, do you have serious difficulty concentrating, remembering, or making decisions? Answer Entry Date Author Status No 08/23/2020 2:54 AM Sierra Nino RN Active documented in this encounter Plan of Treatment Upcoming Encounters Date Type Department Care Team (Late st Contact Info) Description 06/20/2025 11:35 AM CDT Allied Health/Nurse Visit [place] [facility], [address] [place] [address] James Pickett MD Three [facility]. [address] [place], [place] [id number] 09/20/2025 12:00 PM MANAGER OF DATA Office Visit [place] [facility], [address] [place] [address] James Pickett MD Three [facility]. [address] [place] [address] 09/27/2025 1:00 PM MANAGER OF DATA Office Visit [facility] [address] [place] [id number] Saul Trevino MD [address] [place] [address] documented as of this encounter Visit Diagnoses Not on filedocumented in this encounter Additional Health Concerns Infection Onset Date Last Indicated Resolved Time COVID-19 Rule Out 11/05/2020 11/05/2020 11/06/2020 5:31 PM MANAGER OF DATA COVID-19 Rule Out 03/12/2021 03/12/2021 03/13/2021 1:44 PM CDT COVID-19 Rule Out 05/20/2021 05/20/2021 05/21/2021 11:12 AM CDT COVID-19 Rule Out 08/06/2023 08/06/2023 08/06/2023 1:16 PM MANAGER OF DATA COVID-19 Rule Out 10/12/2023 10/12/2023 10/12/2023 8:48 AM MANAGER OF DATA COVID-19 Rule Out 07/27/2024 07/27/2024 07/27/2024 12:12 PM MANAGER OF DATA documented as of this encounter Care Teams Rn Icu Relationship Specialty Start Date End Date Saul Trevino MD PCP - General FAMILY PRACTICE 08/22/20 James Pickett MD Three [facility]. [address] [place] [address] Depue Tongue And Quarter Stitcher CARDIOVASCULAR DISEASE 03/01/16 Bismark Gerardo MD 3[address] [facility] [address] [place] [address] Consulting Physician PULMONARY DISEASE 06/21/21 Tonio Apodaac MD [address] [facility] [place] [address] Consulting Physician UROLOGY 06/21/21 Faheem Parish MD [address] [facility] [address] [place] [address] GASTROENTEROLOGY 06/21/21 Adithya Augustine DO [address] [facility] [address] [place] [address] Consulting Physician GASTROENTEROLOGY 06/21/21 Andre Hernandez MD [address] [facility] [address] [place] [id number] Consulting Physician HEMATOLOGY/ONCOLOGY 06/21/21 documented as of this encounter
--- OUTSIDE RECORDS SUMMARY | 2025-04-22 13:36 | XMS_ITS | Encounter Summary ---
Author Organization [facility] Address [address] [place] [address] Care Team Providers Care Hse Coordinator Name Role Phone Saul Trevino MD Primary Care Provider [phone] James Pickett MD Unavailable Bismark Gerardo MD Unavailable Tonio Apodaca MD Unavailable [phone] Faheem Parish MD Unavailable [phone] Adithya Augustine DO Unavailable [phone] Andre Hernandez MD Unavailable [phone] Reason for Referral * Surgical (Routine) - Closed Specialty Diagnoses / Procedures Referred By Yuri rodriguez Referred To Contact Diagnoses Cervical radiculopathy Procedures Case request operating room: INJECTION EPIDURAL STEROID CERVICAL Anum To NP 3 [facility] [address] [place] [id number] Phone: tel: [phone] fax: Referral ID Status Reason Start Date Expiration Date Visits Re quested Visits Authorized [id number] Closed 08/15/2022 08/15/2023 1 1 PACKER Encounter Details Date Type Department Care Team (Late st Contact Info) Description 08/15/2022 Prep for Procedure [facility] [place] [address] [id number] Anum To NP 3 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 No / Unsure 08/15/2022 12:38 PM MAT PACKER documented as of this encounter Functional Status * RETIRED Are you deaf or do you have serious difficulty hearing Answer Date of Assessment Author Status Yes 11/01/2021 6:01 PM MAT PACKER Activ e * RETIRED Are you blind or do you have serious difficulty seeing, even when wearing glasses? Answer Date of Assessment Author Status No 11/01/2021 6:01 PM MAT PACKER Activ e * Do you have serious [...] of Assessment Author Status No Risk Indicated 08/15/2022 12:53 PM Judy Sethi RN Active * [place] Suicide Severity Rating Scale (Screener/Recent Self-Report) Question Answer Date of Assessment Author Status 1. Wish to be (Past 1 Month) No 08/15/2022 12:53 PM Lilliam Sethi RN A ctive 2. Non-Specific Active Suicidal Thoughts (Past 1 Month) No 08/15/2022 12:53 PM Lilliam Sethi RN A ctive 6. Suicidal Behavior (Lifetime) No 08/15/2022 12:53 PM Lilliam Sethi RN A ctive documented as of this encounter Mental Status [...] 11:35 AM CDT Allied Health/Nurse Visit [facility] on [address] [address] James Pickett MD Three [facility]. [address] [place], [place] [id number] 09/20/2025 12:00 PM MAT PACKER Office Visit [facility] THREE [facility], [address] [place], [place] [id number] James Pickett MD Three [facility]. [address] [place], [place] [id number] 09/27/2025 1:00 PM MAT PACKER Office Visit [facility] [address] [place] [address] Saul Trevino MD [address] [place] [address] Scheduled Orders Name Type Priority Associated Diagnoses Orde r Schedule Case request operating room: INJECTION EPIDURAL STEROID CERVICAL Case Request Routine Cervical radiculopathy Once for 1 Occurrences starting 08/15/2022 until 08/15/2022 documented as of this encounter Goals Goal Patient Goal Type Associated Problems Recent Progress Patient-Stated? Author Patient will return to prior living situation and remain independent in ADLs upon discharge from [facility] Anna Quezada RN documented as of this encounter Visit Diagnoses Diagnosis Cervical radiculopathy- Primary Brachial neuritis or radiculitis nos documented in this encounter Additional Health Concerns Infection Onset Date Last Indicated Resolved Time COVID-19 Rule Out 08/06/2023 08/06/2023 08/06/2023 1:16 PM MAT PACKER COVID-19 Rule Out 10/12/2023 10/12/2023 10/12/2023 8:48 AM MAT PACKER COVID-19 Rule Out 07/27/2024 07/27/2024 07/27/2024 12:12 PM MAT PACKER Assessment Noted Time PHQ-9 Depression Total Score: 0 11/01/19 2:48 PM MAT PACKER documented as of this encounter Care Teams Hse Coordinator Relationship Specialty Start Date End Date Saul Trevino MD PCP - General FAMILY PRACTICE 08/22/20 James Pickett MD Three [facility]. [address] [place] [address] [employer] Desktop Support Technician CARDIOVASCULAR DISEASE 03/01/16 Bismark Gerardo MD [address] [facility] [address] [place] [address] Consulting Physician PULMONARY DISEASE 06/21/21 Tonio Apodaca MD [address] [facility] [place] [address] Consulting Physician UROLOGY 06/21/21 Faheem Parish MD [address] [facility] [address] [place] [address] GASTROENTEROLOGY 06/21/21 Adithya Augustine DO [address] [facility] [address] [place] [address] Consulting Physician GASTROENTEROLOGY 06/21/21 Andre Hernandez MD [address] [facility] [address] [place] [address] Consulting Physician HEMATOLOGY/ONCOLOGY 06/21/21 documented as of this encounter
--- OUTSIDE RECORDS SUMMARY | 2025-04-22 13:36 | XMS_ITS | Clinical Summary ---
Author Organization [facility] Address [address] [place] [address] Care Team Providers Care Back End Developer Name Role Phone Saul Trevino MD Primary Care Provider [phone] James Pickett MD Unavailable Bismark Gerardo MD Unavailable [phone] Tonio Apodaca MD Unavailable [phone] Faheem Parish MD Unavailable [phone] Adithya Augustine DO Unavailable [phone] Andre Hernandez MD Unavailable [phone] Allergies Active Allergy Reactions Criticality Noted Date Comments Ciprofloxacin Swelling High 05/14/2020 Lips swelled Medications brimonidine 0.2 % ophthalmic solution Place 1 drop into both eyes 3 (three) times daily. 04/13/20 18 Active Cholecalciferol (VITAMIN D-3) 5000 units Tab Take 1 tablet (5,000 Units total) by mouth daily. 04/13/20 18 Active pantoprazole 20 MG tablet Take 1 tablet (20 mg total) by mouth daily. 09/08/19 19 Active albuterol sulfate HFA (PROAIR HFA) 108 (90 Base) MCG/ACT inhalerIndicati ons:Mild reactive airways disease, unspecified whether persistent (HHS/HCC) Inhale 2 puffs into the lungs every 4 (four) hours as needed for Wheezing or Shortness of breath. 18 g 5 10/23/19 21 Active Polyvinyl Alcohol-Povidon e (TEARS PLUS OP) Apply to eye 2 (two) times daily. Active lisinopril 10 MG tablet Take 1 tablet (10 mg total) by mouth nightly. Active warfarin 5 MG tablet Take 1 tablet (5 mg total) by mouth see administration instructions. Active acetaminophen 500 MG tablet Take 1 tablet (500 mg total) by mouth every 6 (six) hours as needed for Pain. Active MELATONIN ER OR Take 6 mg by mouth nightly at bedtime. Active nitroglycerin (NITROSTAT) 0.[address] 1 tablet (0.4 mg total) under the tongue every 5 (five) minutes as needed for Chest Pain (If 2 doses taken, all 911.). 25 tablet 1 07/16/20 22 Active hydrocortisone 2.5 % creamIndication s:Hemorrhoids, unspecified hemorrhoid type Apply topically 2 (two) times daily. 3.5 g 1 01/15/20 23 Active BIPAP MACHINE Active rosuvastatin (CRESTOR) 10 MG tablet Take 1 tablet (10 mg total) by mouth nightly at bedtime. 90 tablet 1 09/18/19 24 Active fluticasone propionate (FLONASE) 50 MCG/ACT nasal sprayIndication s:Cough USE 1 TO 2 SPRAYS IN EACH NOSTRIL ONCE A DAY 48 mL 1 01/01/20 24 Active vitamin B-12 (CYANOCOBALAMIN ) (CYANOCOBALAMIN ) 1000 mcg tabletIndicatio ns:Vitamin B 12 deficiency Take 1 tablet (1,000 mcg total) by mouth daily. 03/25/20 25 Active Active Problems Problem Noted Date Diagnosed Date Lumbar radiculopathy 03/18/2025 Urinary frequency 09/15/2023 Assessment & Plan (09/15/2023 3:25 PM STATION ENGINEER): Denies dysuria. Has increased frequency which is chronic. Will get UA reflex. If positive for blood, will get CT of the abdomen and pelvis without contrast. Hemorrhoid 01/14/2023 Epistaxis 09/29/2022 Assessment & Plan (06/01/2023 7:27 AM CDT): Right septal deviation. Epistaxis-resolved. No more episode of nose bleed. SP cauterization. Continue moisturizer, saline gel and avoid picking nose and blowing hard. Seen and evaluated by ENT. Assessment & Plan (01/19/2023 10:02 AM CDT): 6 right septal deviation with epistaxis--resolved. Episode of nosebleed. SP cauterization. Advised to continue moisturizer, saline gel and avoid picking nose and blowing hard. Assessment & Plan (09/29/2022 1:54 PM STATION ENGINEER): Epistaxis and right septal deviation. Seen recently by ENT. Patient so far denies any episode of epistaxis. Recommended close monitoring for now surveillance. Continue moisturizer, saline gel and avoid picking nose and blowing hard. Consider surgical intervention if indicated for septal deviation. Cervical radiculopathy 08/15/2022 Overview (08/15/2022): Added automatically from request for surgery [id number] Assessment & Plan (06/01/2023 7:28 AM CDT): SP epidural steroid injection. Patient continues to do well. Assessment & Plan (01/19/2023 10:03 AM CDT): Patient continues to do well. SP cervical epidural steroid injection. Assessment & Plan (09/29/2022 1:47 PM STATION ENGINEER): Recently underwent cervical epidural steroid injection. Patient continues to do well. Responding well. Primary osteoarthritis of right hip 01/15/2022 Assessment & Plan (03/14/2022 11:35 AM CDT): Seen recently by Ortho. So far doing well. Continue exercises learned from PT. Takes tramadol as needed only for severe pain. Assessment & Plan (01/15/2022 2:44 PM CDT): X-ray showed OA/DJD. Seen recently by Ortho. More likely will need hip replacement. For now start patient on Medrol Dosepak x1 as directed and tramadol 50 mg 3 times daily as needed. Refer patient to PT. Patient cannot get MRI due to pacemaker per cardiology. Multiple thyroid nodules 10/30/2021 Assessment & Plan (03/27/2025 12:06 PM CDT): Multiple goiter per ultrasound. Thyroid function normal. Negative FNA biopsy. Will continue to monitor. Follow-up endocrinology. Assessment & Plan (08/10/2024 3:51 PM STATION ENGINEER): Multiple goiter. Ultrasound. Thyroid function normal. Negative FNA biopsy. Monitor. Follow-up endocrinology. Assessment & Plan (02/03/2024 4:04 PM CDT): Multiple goiter per ultrasound. Thyroid function normal. FNA biopsy negative. Monitor. Follow-up endocrinology. Assessment & Plan (09/30/2023 2:41 PM STATION ENGINEER): Multiple good repeat ultrasound. Thyroid function normal. FNA biopsy negative. Follow-up endocrinology. Assessment & Plan (06/01/2023 7:26 AM CDT): Multiple goiter per ultrasound. Thyroid function normal. FNA biopsy negative. Follow-up endocrinology. Assessment & Plan (03/14/2022 11:30 AM CDT): Multiple vertebral ultrasound. FNA biopsy negative. Follow-up endocrinology. Assessment & Plan (12/10/2021 1:05 PM CDT): Multiple goiter per ultrasound. Patient was seen by [employer]hanger contractor and had FNA biopsy which was negative. Consider repeat follow-up ultrasound of thyroid in 6 months to 1-year. Assessment & Plan (10/30/2021 4:57 PM STATION ENGINEER): Multiple goiter per ultrasound. Thyroid function normal. Patient was referred to [employer] contractor sometime in November. We will get a sooner appointment. May need FNA biopsy. Neck mass 09/25/2021 Assessment & Plan (09/29/2022 1:39 PM STATION ENGINEER): Left submandibular lymphadenopathy--- completely resolved. No palpable mass noted. Denies any pain and tenderness. Did well with Augmentin. We will continue to monitor. Assessment & Plan (03/14/2022 11:33 AM CDT): Left submandibular lymphadenopathy--remains completely resolved. No mass palpated. No pain and tenderness. Responded well with Augmentin. Assessment & Plan (12/10/2021 1:06 PM CDT): Left 70 mm/lymphadenopathy--remains resolved. No pain/tenderness. Done with antibiotics/Augmentin. We will continue to monitor. Repeat CT of the neck next month. Assessment & Plan (10/30/2021 4:56 PM STATION ENGINEER): Left submandibular mass/lymphadenopathy is completely resolved. Denies any pain/tenderness. Responded well with Augmentin 875 mg twice daily. We will continue to monitor. Consider repeating CT of the neck if indicated in 1 to 2 months. Assessment & Plan (09/25/2021 11:43 AM STATION ENGINEER): We will get CT of the neck with contrast and go from there. Consider referral to ENT. For now continue amoxicillin and Medrol Dosepak as prescribed. Carpal tunnel syndrome, left 06/14/2021 Assessment & Plan (09/25/2021 12:43 PM STATION ENGINEER): SP left carpal tunnel release. No complications noted. Follow-up hand surgeon. Assessment & Plan (06/14/2021 12:32 PM CDT): Patient is scheduled for carpal tunnel surgery/release June 27. Mild reactive airways diseas e, unspecified whether persistent (HHS/HCC) 10/23/2020 EMMANUEL on CPAP 10/23/2020 Assessment & Plan (03/27/2025 12:05 PM CDT): Stable. Continue BiPAP machine compliantly. Continue good/proper sleep hygiene. Was just recently by pulmonology. Assessment & Plan (08/10/2024 3:50 PM STATION ENGINEER): Stable. Continue BiPAP machine as ordered compliantly and faithfully. Good/proper sleep hygiene. Exercise and stay active. Follow pulmonology. Assessment & Plan (02/03/2024 4:04 PM CDT): Stable. Currently on BiPAP machine. Continue as ordered compliantly. Continue good/proper sleep hygiene. Stay active. Assessment & Plan (09/30/2023 2:43 PM STATION ENGINEER): Stable. Continue BiPAP machine. Has a follow-up appointment with sleep medicine October 07. Continue good/proper sleep hygiene. Assessment & Plan (06/01/2023 7:28 AM CDT): Stable. Continue BiPAP machine as ordered compliantly and faithfully. Continue good/proper sleep hygiene. Assessment & Plan (01/19/2023 10:04 AM CDT): Stable and controlled. Continue BiPAP machine as ordered compliantly and faithfully with good/proper sleep hygiene. Stay active. Follow-up sleep medicine. Assessment & Plan (09/29/2022 1:42 PM STATION ENGINEER): Continue BiPAP machine as ordered compliantly. Continue good/proper sleep hygiene. Exercise stay active. Follow-up sleep medicine. Assessment & Plan (03/14/2022 11:35 AM CDT): Seen by sleep medicine. Currently now on BiPAP machine and was advised to continue compliant and faithfully. Continue good/proper sleep hygiene. Exercise and stay active. Assessment & Plan (10/30/2021 4:58 PM STATION ENGINEER): Stable and controlled. Continue BiPAP machine compliantly with good proper sleep hygiene. Assessment & Plan (09/25/2021 12:42 PM STATION ENGINEER): Stable and controlled. Continue BiPAP compliantly. Good/proper sleep hygiene. Seen recently by pulmonology. Assessment & Plan (06/14/2021 12:31 PM CDT): Stable and controlled. Continue BiPAP compliantly. Continue good/proper sleep hygiene. Stay active. Assessment & Plan (02/06/2021 12:48 PM CDT): Stable. Patient is currently on BiPAP responding well. Stay active. Continue good/proper sleep hygiene. Acute deep vein thrombosis ( DVT) of brachial vein of left upper extremity ([facility]) 03/30/2020 Subclavian vein thrombosis, left ([facility] HHS/ C) 03/03/2020 Assessment & Plan (03/27/2025 12:04 PM CDT): Left proximal subclavian proximal cephalic vein DVT left arm. Patient continues to do well. No swelling and edema. No pain. Continue Coumadin as ordered. Therapeutic INR between 2-3. Patient also has A-fib. Assessment & Plan (08/10/2024 3:50 PM STATION ENGINEER): Left proximal subclavian proximal cephalic vein DVT left arm:--No swelling. Continue Coumadin as ordered. Therapeutic INR between 2-3. Also for A-fib. Assessment & Plan (02/03/2024 4:02 PM CDT): Left proximal subclavian proximal cephalic vein DVT left arm: Swelling and pain: Resolved. Currently on Coumadin. Therapeutic INR between 2-3. Also for A-fib. Assessment & Plan (06/01/2023 7:25 AM CDT): Left proximal subclavian proximal cephalic vein DVT left arm.--Resolved. No swelling/edema noted. No pain. Currently on Coumadin. Assessment & Plan (01/19/2023 10:01 AM CDT): Left proximal subclavian proximal cephalic vein DVT left arm--swelling resolved. No edema noted. No pain. Still currently on Coumadin. Assessment & Plan (09/29/2022 1:39 PM STATION ENGINEER): Acute left proximal subclavian and proximal cephalic vein DVT left arm--he continues to do well with no swelling or pain. Currently on Coumadin. INR monitoring. Assessment & Plan (03/14/2022 11:30 AM CDT): Acute left proximal subclavian and proximal cephalic vein DVT left arm. Denies any swelling or pain. Continue Coumadin and INR monitoring. Assessment & Plan (10/30/2021 4:58 PM STATION ENGINEER): Acute left proximal subclavian and proximal cephalic vein DVT left arm--swelling and pain both resolved. Currently still on Coumadin. Patient also has A. fib. Assessment & Plan (06/14/2021 12:35 PM CDT): Acute left proximal subclavian and proximal cephalic vein DVT left arm--resolved. Denies any swelling and pain. Continue Coumadin as ordered. Assessment & Plan (02/06/2021 12:51 PM CDT): Acute left proximal subclavian and proximal cephalic vein DVT left arm. He continues to do well. Denies any swelling and pain. Continue Coumadin and INR monitoring as ordered. He was seen recently by hematology. Assessment & Plan (11/21/2020 12:52 PM CDT): Acute left proximal subclavian and proximal cephalic vein DVT left arm--denies swelling/pain. Continue Coumadin as ordered. INR monitoring. Assessment & Plan (09/03/2020 4:09 PM STATION ENGINEER): Acute left proximal subclavian and proximal cephalic vein DVT left arm. Swelling resolved. Denies any pain. Continue Coumadin 5 mg daily except 2.5 mg on Mondays. Monitor INR as discussed above. Assessment & Plan (07/25/2020 2:56 PM STATION ENGINEER): Acute left proximal subclavian and proximal cephalic vein DVT left arm--swelling resolved. Same with tenderness. Currently now on Coumadin 5 mg daily except 2.5 on Mondays. Continue INR monitoring with therapeutic INR between 2-3. Assessment & Plan (03/27/2020 3:16 PM CDT): Acute left proximal subclavian and proximal cephalic vein DVT per ultrasound --left arm swelling is almost resolved. No tenderness. Had INR this morning --2.8. Currently he is taking Coumadin 2.5 mg just for today then back to 5 mg daily. Repeat INR in 1 week.--Pro time/Coumadin managed by cardiology. Assessment & Plan (03/21/2020 3:12 PM CDT): Acute left proximal subclavian and proximal cephalic vein DVT per ultrasound--left arm swelling is much better. Same with pain and tenderness. Has no good range of motion. Currently on Coumadin 5 mg daily. Recent INR done yesterday 2.5. Advised to continue same dose and repeat INR in 1 week. Therapeutic INR between 2-3 and adjust dose of Coumadin accordingly. Discussed adverse effects including signs and symptoms of bleeding. Primary osteoarthritis of right shoulder 020 Assessment & Plan (02/21/2020 1:18 PM CDT): Possible RC tear per patient--we will get x-ray of right shoulder and refer patient back to Dr. Solis. For now continue Tylenol Extra Strength 1-2 every 8 hours as needed. Paroxysmal atrial fibrillation ([facility]) 04/06/2019 Assessment & Plan (03/27/2025 12:02 PM CDT): Stable and controlled. In sinus rhythm. Denies any symptoms of heart failure. Continue Coumadin as ordered. Therapeutic INR between 2-3. Assessment & Plan (08/10/2024 3:49 PM STATION ENGINEER): Stable and controlled. Remaining sinus rhythm and denies any symptoms heart failure. Continue Coumadin as ordered with therapeutic INR between 2-3. Assessment & Plan (02/03/2024 4:03 PM CDT): Stable and controlled. Denies any symptoms heart failure. Remaining sinus rhythm. Continue Coumadin as ordered with therapeutic INR between 2-3. Assessment & Plan (09/30/2023 2:41 PM STATION ENGINEER): Stable and controlled. Denies any symptoms of heart failure. In sinus rhythm. Continue Coumadin with INR monitoring. Therapeutic INR between 2-3. Assessment & Plan (06/01/2023 7:29 AM CDT): Stable and controlled. Denies any symptoms of heart failure. In sinus rhythm. Continue Coumadin INR monitoring. Assessment & Plan (01/19/2023 9:59 AM CDT): Denies any symptoms heart failure. He continues to do well. Continue Coumadin and INR monitoring. Therapeutic INR between 2-3. Assessment & Plan (09/29/2022 1:36 PM STATION ENGINEER): Patient continues to do well. Stable and controlled and denies any symptoms of heart failure. Continue Coumadin and INR monitoring. Assessment & Plan (03/14/2022 11:29 AM CDT): Stable and well controlled. In sinus rhythm. Denies any symptoms heart failure. Continue Coumadin and INR monitoring. Therapeutic INR between 2-3. Assessment & Plan (12/10/2021 1:33 PM CDT): Stable and controlled. Denies any symptoms heart failure. In sinus rhythm. Continue Coumadin with therapeutic INR between 2-3. Assessment & Plan (10/30/2021 4:59 PM STATION ENGINEER): Stable and controlled. Denies any symptoms of heart failure. Remaining in sinus rhythm. Continue Coumadin with therapeutic INR between 2-3. Assessment & Plan (09/25/2021 12:43 PM STATION ENGINEER): Stable and controlled. In sinus rhythm. Denies any symptoms of heart failure. Currently on Coumadin. Monitor INR with therapeutic INR between 2-3. Assessment & Plan (06/14/2021 12:34 PM CDT): Stable and controlled. Remaining in sinus rhythm. Continue Coumadin and INR monitoring with therapeutic INR between 2-3. Assessment & Plan (02/06/2021 12:50 PM CDT): Stable and controlled. Remain in sinus rhythm. Continue Coumadin and INR monitoring. Therapeutic INR between 2-3. Assessment & Plan (11/21/2020 12:51 PM CDT): Stable and controlled. He remains in sinus rhythm. Continue Coumadin 5 mg daily except for Mondays 2.5 mg. Continue INR monitoring with therapeutic INR between 2-3. Assessment & Plan (09/03/2020 4:08 PM STATION ENGINEER): Stable and controlled. He continues to remain in sinus rhythm. Continue Coumadin 5 mg daily except for Mondays 2.5 mg. Monitor INR. Therapeutic INR between 2-3. Assessment & Plan (07/25/2020 2:56 PM STATION ENGINEER): Stable and controlled. He continues to be in sinus rhythm. Currently on baby aspirin and Coumadin. Assessment & Plan (03/21/2020 3:13 PM CDT): Stable and controlled. In sinus rhythm. He is currently now on baby aspirin and Coumadin. Follow-up with cardiology. Assessment & Plan (02/08/2020 4:46 PM CDT): Stable and controlled. In sinus rhythm. Currently on aspirin and Eliquis. Seen recently by cardiology. Glaucoma suspect of both eyes 01/22/2019 GERD (gastroesophageal reflux disease) 9 CAD (coronary artery disease) 10/21/2018 Assessment & Plan (03/27/2025 12:04 PM CDT): Denies any anginal symptoms. Continue lisinopril, nitroglycerin, rosuvastatin as ordered compliantly. Low-cholesterol/salt diet. Follow-up cardiology. Routine labs. Assessment & Plan (08/10/2024 3:49 PM STATION ENGINEER): He denies any general symptoms. Continue same current meds including lisinopril, nitroglycerin, rosuvastatin as ordered compliantly. Continue low- cholesterol/salt diet. Follow-up cardiology. Assessment & Plan (02/03/2024 4:01 PM CDT): Asymptomatic and denies any anginal symptoms. Continue same meds: Lisinopril, nitroglycerin, rosuvastatin as ordered compliantly. Low-cholesterol/salt diet. Follow-up cardiology. Will get routine blood test/labs. Assessment & Plan (09/30/2023 2:38 PM STATION ENGINEER): Denies any anginal symptoms. Continue same current meds: Lisinopril, nitroglycerin, rosuvastatin. Assessment & Plan (06/01/2023 7:23 AM CDT): Patient continues to complain of fatigue during exertion with swelling. Concerning for angina. He is scheduled for cardiac cath tomorrow. For now continue all same current meds including statins, nitroglycerin, Imdur, lisinopril. Advised patient to avoid triggers activities or overexertion until seen by cardiology. Assessment & Plan (01/19/2023 10:00 AM CDT): Patient continues to do well and denies any anginal symptoms. Recent echo and nuclear stress test--negative. Continue same current meds: Statins, nitroglycerin. Off aspirin currently on Coumadin. Follow-up cardiology. Assessment & Plan (09/29/2022 1:37 PM STATION ENGINEER): Denies any anginal symptoms. Echo nuclear stress test-both negative. Continue same meds: Statins, nitroglycerin. Patient is currently on Coumadin. Off aspirin. Follow-up cardiology. Assessment & Plan (03/14/2022 11:27 AM CDT): Echo nuclear stress test both negative. Denies any anginal symptoms. Continue same current regimen including statins, nitroglycerin. Patient is on Coumadin. Off aspirin. Follow-up cardiology. Stay active. Assessment & Plan (12/10/2021 1:32 PM CDT): Admitted recently for chest pain which is completely resolved now. Echo and nuclear stress test both negative. Patient denies any anginal symptoms. Continue same current medications including statins, nitroglycerin. Patient is also on Coumadin. Currently off aspirin. Follow-up cardiology. Assessment & Plan (10/30/2021 5:00 PM STATION ENGINEER): Denies any anginal symptoms. Continue same medications including statins, nitroglycerin,. Continue Coumadin. He is currently off aspirin. Assessment & Plan (09/25/2021 12:44 PM STATION ENGINEER): Denies any anginal symptoms. Continue same meds/regimen: Statins, nitroglycerin. Patient is currently off aspirin and is on Coumadin per cardiology. Assessment & Plan (06/14/2021 12:34 PM CDT): He denies any anginal symptoms. Continue same regimen: Statins, nitroglycerin and baby aspirin. Follow-up cardiology. Assessment & Plan (02/06/2021 12:50 PM CDT): Denies any anginal symptoms. Continue same meds/regimen including statins, nitroglycerin, baby aspirin. Assessment & Plan (11/21/2020 12:51 PM CDT): Denies any anginal symptoms. He continues to do well. Continue same meds/regimen statins, nitroglycerin. Currently on Coumadin. Follow-up cardiology. Assessment & Plan (09/03/2020 4:07 PM STATION ENGINEER): Denies any symptoms of angina. Denies chest pain/shortness of breath. Continue statins, nitroglycerin. Currently on Coumadin. Aspirin was temporarily held. Same with lisinopril for now. Follow-up cardiology. Assessment & Plan (07/25/2020 2:55 PM STATION ENGINEER): Seen recently by cardiology with no changes in his current medications. Denies any anginal symptoms. Currently on YESICA, statins, aspirin and nitroglycerin. Assessment & Plan (03/21/2020 3:13 PM CDT): No angina. Denies any chest pain/shortness of breath. Continue same current regimen as per cardiology. Cardiac rome is stable and doing well. Seen recently by steam trap man. Assessment & Plan (02/08/2020 4:45 PM CDT): No angina. Denies any chest pain/shortness/palpitation. Continue current regimen. Was just seen recently by cardiology and cardiac rome is stable and is doing well. Prostate cancer ([facility]) 10/04/2014 Assessment & Plan (03/27/2025 12:03 PM CDT): As per prostatectomy. Patient continues to do well. Last PSA 0.4. Follow-up urology. Assessment & Plan (08/10/2024 3:48 PM STATION ENGINEER): SP prostatectomy. States that his last PSA was 0.4. He continues to do well. Follow-up urology. Assessment & Plan (02/03/2024 4:01 PM CDT): Recent PSA 0.4. SP prostatectomy. He continues to do well. Follow-up urology. Assessment & Plan (09/30/2023 2:41 PM STATION ENGINEER): SP prostatectomy. Follow-up urology. Has an appointment next month. Assessment & Plan (06/01/2023 7:27 AM CDT): SP prostatectomy. Follow-up urology. He continues to do well. Assessment & Plan (01/19/2023 10:02 AM CDT): SP prostatectomy. He continues to do well. Follow-up urology. Assessment & Plan (09/29/2022 1:40 PM STATION ENGINEER): SP prostatectomy. Denies any irritative obstructive symptoms. He continues to do well. Follow-up urology. Assessment & Plan (03/14/2022 11:33 AM CDT): SP prostatectomy. He continues to do well and denies any irritative obstructive symptoms. Follow-up with urology. Assessment & Plan (10/30/2021 5:01 PM STATION ENGINEER): SP prostatectomy. Denies any irritative obstructive symptoms. He continues to do well. Follow-up urology. Assessment & Plan (06/14/2021 12:35 PM CDT): SP prostatectomy. He continues to do well. Denies any irritative obstructive symptoms. Follow-up urology. Assessment & Plan (02/06/2021 12:51 PM CDT): SP prostatectomy. Denies any voiding problems/related obstructive symptoms. Follow-up urology. Assessment & Plan (11/21/2020 12:52 PM CDT): SP prostatectomy. Denies any voiding problems/irritative obstructive symptoms. Follow-up urology. Assessment & Plan (03/21/2020 3:14 PM CDT): S/P vasectomy. Denies any voiding problems/irritative obstructive symptoms. He continues to do well. Follow-up with urology. Assessment & Plan (02/08/2020 4:47 PM CDT): S/P prostatectomy. He continues to do well. Denies any voiding problems. Follow- up with urology. Assessment & Plan (10/05/2019 1:54 PM STATION ENGINEER): S/P prostatectomy. Denies any voiding problems. Patient currently is doing well. He sees . Assessment & Plan (06/04/2019 12:09 PM CDT): S/P prostatectomy. Currently patient continues to do well. Follow-up with urology. Assessment & Plan (02/28/2019 5:18 PM CDT): S/P prostatectomy. Patient is doing well. Follow-up with urology. Assessment & Plan (01/12/2019 1:24 PM CDT): S/P prostatectomy. Patient currently is doing well. Assessment & Plan (09/20/2018 5:46 PM STATION ENGINEER): S/P prostatectomy--doing well. Assessment & Plan (07/28/2018 2:40 PM STATION ENGINEER): S/p prostatectomy---doing well. Dyslipidemia Assessment & Plan (03/27/2025 12:06 PM CDT): Controlled lipids. LFTs normal. Continue rosuvastatin 10 mg daily. Diet and exercise. Will get routine labs. Assessment & Plan (08/10/2024 3:50 PM STATION ENGINEER): Lipids controlled with normal LFTs. Continue rosuvastatin 10 mg daily. Low-cholesterol diet. Stay active. Assessment & Plan (02/03/2024 4:04 PM CDT): Last lipid panel controlled with normal LFTs. Continue rosuvastatin 10 mg daily and low-cholesterol diet. Will get routine blood test/labs. Assessment & Plan (09/30/2023 2:38 PM STATION ENGINEER): Lipids controlled. LFTs normal. Continue rosuvastatin 10 mg daily and low- cholesterol diet. Assessment & Plan (06/01/2023 7:24 AM CDT): Lipid panel controlled with normal LFTs. Continue rosuvastatin 10 mg daily and low-cholesterol diet. Scheduled for cardiac cath tomorrow. Assessment & Plan (01/19/2023 9:59 AM CDT): Lipids controlled. LFTs normal. Continue atorvastatin 80 mg daily and low- cholesterol diet. Stay active. Assessment & Plan (09/29/2022 1:37 PM STATION ENGINEER): Lipid panel controlled with normal LFTs. Continue atorvastatin 80 mg daily and low-cholesterol diet. Exercise and stay active. Routine blood test next visit. Assessment & Plan (03/14/2022 11:29 AM CDT): Lipids well controlled. LFTs normal. Continue atorvastatin and low-cholesterol diet. Stay active. Assessment & Plan (09/25/2021 12:45 PM STATION ENGINEER): Controlled lipids with normal LFTs. Continue atorvastatin 20 mg daily and low-cholesterol diet. Assessment & Plan (06/14/2021 12:35 PM CDT): January 2021: Lipids controlled. LFTs normal. Continue atorvastatin 20 mg daily and low cholesterol diet. Assessment & Plan (02/06/2021 12:52 PM CDT): January 2021: Lipid panel controlled with normal LFTs. Continue atorvastatin 20 mg daily. Continue low-cholesterol/carbohydrate/salt diet. Stay active. Assessment & Plan (11/21/2020 12:53 PM CDT): Last lipid panel controlled. LFTs normal. Continue atorvastatin 20 mg daily and low-cholesterol diet. We will get routine blood test sometime end of December or early January Assessment & Plan (07/25/2020 2:57 PM STATION ENGINEER): Lipids controlled with normal LFTs. Continue atorvastatin 20 mg daily. Diet and exercise as stated above. Assessment & Plan (03/21/2020 3:14 PM CDT): Lipid panel controlled. LFTs normal. Continue same dose of atorvastatin 20 mg daily. Always stay on a low-cholesterol/salt diet. Exercise and stay active. Assessment & Plan (02/08/2020 4:47 PM CDT): Lipids controlled. LFTs normal. Continue atorvastatin 20 mg daily. Continue low-cholesterol/salt diet. Exercise and stay active. Assessment & Plan (10/05/2019 2:04 PM STATION ENGINEER): Lipids well controlled. LFTs normal. Continue atorvastatin 20 mg daily. Always stay on a low-cholesterol/salt diet. Will get routine blood tests coming way including lipids. Exercise and stay active. Hypertensive disease Assessment & Plan (03/27/2025 12:02 PM CDT): Normotensive and controlled. Continue lisinopril 10 mg daily. Low-salt diet. Stay active. Will get routine labs. Assessment & Plan (08/10/2024 3:49 PM STATION ENGINEER): BP is controlled and normotensive. Continue lisinopril 10 mg daily low-salt diet. Exercise and stay active. Assessment & Plan (02/03/2024 4:02 PM CDT): Normotensive controlled. Continue lisinopril 10 mg daily and low-salt diet. Assessment & Plan (09/30/2023 2:41 PM STATION ENGINEER): Stable and controlled. Continue lisinopril 10 mg daily and low-salt diet. Assessment & Plan (09/15/2023 3:27 PM STATION ENGINEER): Normotensive and controlled. Continue lisinopril 10 mg daily and low-salt diet. Assessment & Plan (06/01/2023 7:24 AM CDT): Stable and controlled. Continue lisinopril 10 mg daily and low-salt diet. Assessment & Plan (01/19/2023 9:59 AM CDT): BP is controlled. Continue lisinopril 10 mg daily and low-salt diet. Stay active. Assessment & Plan (09/29/2022 1:36 PM STATION ENGINEER): Normotensive and controlled. Continue lisinopril 10 mg daily. Low-salt diet. Exercise and stay active. Assessment & Plan (03/14/2022 11:29 AM CDT): BP is well controlled. Continue lisinopril and low-salt diet. Exercise and stay active. Assessment & Plan (01/15/2022 2:44 PM CDT): Repeat BP 130/80.. Patient is now back on lisinopril 10 mg daily. Continue same dose compliantly. Monitor BP twice daily and record. Parameters discussed. Continue low-salt diet. Instructed patient to call if BP is persistently elevated to more than 140/90. Assessment & Plan (10/30/2021 4:59 PM STATION ENGINEER): BP is controlled. No antihypertensive due to episode of hypotension and doing well without. He is now off lisinopril. Continue BP monitoring twice daily at least 3 times a week. Parameters discussed. Continue low-salt diet. Assessment & Plan (06/14/2021 12:33 PM CDT): Normotensive and controlled. Patient is currently not on any antihypertensive due to episodes of hypotension which is well controlled now. She is currently off on lisinopril. Continue BP monitoring twice daily and record. Parameters discussed. Call me if BP is persistently elevated to more than 140/90. Continue low-salt diet. Assessment & Plan (11/21/2020 12:49 PM CDT): Normotensive. Home BP record controlled as well. Patient currently not on lisinopril which was discontinued last visit due to episode of hypotension. No episode hypertensions lately. Advised to continue BP monitoring. Parameters discussed. Stay on a low-salt diet. Assessment & Plan (09/03/2020 4:22 PM STATION ENGINEER): BP is controlled. Currently off lisinopril 10 mg at bedtime due to episode of hypotension. Advised patient to continue BP monitoring twice daily and record. Parameters discussed. Advised to call me if BP is persistently elevated to more than 140/90 and start on lisinopril 10 mg daily as ordered. Always stay on a low-cholesterol/salt diet.--Send or call me BP records every week. Assessment & Plan (07/25/2020 2:55 PM STATION ENGINEER): Repeat BP 135/75. States BP at home is always normal. Continue lisinopril 10 mg daily and low-cholesterol/salt diet. Continue BP monitoring twice daily and record. Parameters discussed. Assessment & Plan (03/27/2020 3:17 PM CDT): Normotensive well-controlled. Continue lisinopril 10 mg daily. Always stay on a low-cholesterol/salt diet. Assessment & Plan (03/21/2020 3:12 PM CDT): BP is well controlled. Continue lisinopril 10 mg daily. Continue low- cholesterol/salt diet. Assessment & Plan (02/21/2020 1:39 PM CDT): Repeat blood pressure 140/80, 108/78. Continue lisinopril 10 mg daily. Continue low-cholesterol salt diet. Monitor BP twice daily and record. Parameters discussed. She was advised to call me if persistently elevated to more than 140/90. Assessment & Plan (02/08/2020 4:45 PM CDT): BP is well controlled. Continue lisinopril 10 mg daily. Always stay on a low-cholesterol/salt diet. Exercise and stay active. Assessment & Plan (10/05/2019 1:53 PM STATION ENGINEER): Normotensive and well controlled. Continue lisinopril 10 mg daily. Continue low-cholesterol/salt diet. Exercise and stay active. No episodes of hypotension. Assessment & Plan (08/18/2019 3:13 PM STATION ENGINEER): Blood pressure is well controlled. Continue lisinopril 10 mg daily. Always stay on a low cholesterol/salt diet. Assessment & Plan (08/09/2019 3:36 PM STATION ENGINEER): Blood pressures well controlled. Continue lisinopril 10 mg daily. Always stay on a low-salt diet. Assessment & Plan (06/04/2019 12:05 PM CDT): Normotensive and well controlled. Patient now currently on lisinopril 10 mg daily. No episodes of hypotension and syncope. Advised to continue BP monitoring. Parameters discussed again. Stay on low-salt diet. Assessment & Plan (02/28/2019 5:25 PM CDT): Controlled. Patient is not on any antihypertensives. Likewise no episodes of hypotension. He no longer takes Midodrine. Continue BP monitoring. Parameters discussed.ne Assessment & Plan (01/12/2019 1:20 PM CDT): Controlled. Patient is not on any antihypertensives. No episodes of hypotension noted. He is now off Midodrine. Advised to continue to monitor blood pressure twice daily and record. Parameters discussed. Assessment & Plan (09/20/2018 5:44 PM STATION ENGINEER): Blood pressure controlled and within high normal range since started on Midodrine 5 mg twice daily. Off all antihypertensives. No episodes of hypotension. Assessment & Plan (07/28/2018 2:38 PM STATION ENGINEER): Controlled. 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 Ambulating well. Continues to do well. Continue Coumadin, YESICA, statins. Control BP and blood sugar. Exercise and stay active. Continue exercises learned from PT. Fall risk precautions. 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 Patient continues to do well. Ambulating well. Continue Coumadin, YESICA, statins. Control BP. Control blood sugar. Continue exercise learned from PT. Fall risk precautions. Assessment & Plan (02/03/2024 4:05 PM CDT): History of CVA with right hemiparesis/mild right-sided weakness. Patient continues to do well. Continue Coumadin, YESICA and statins. Control BP. Control blood sugar. Continue exercises learned from PT. Fall risk precautions. Assessment & Plan (09/30/2023 2:43 PM STATION ENGINEER): History of CVA with right hemiparesis/mild right-sided weakness. Continue exercises from PT. Fall risk precautions. Currently on Coumadin, YESICA and statins. Assessment & Plan (06/01/2023 7:28 AM CDT): History of CVA with right hemiparesis/right-sided weakness mild--continue exercises learned from PT. Fall risk precautions. Patient continues to do well. Currently on Coumadin. Assessment & Plan (01/19/2023 10:03 AM CDT): History of CVA with right right hemiparesis/right-sided weakness. Patient continues to do well. Continue exercises learned from PT. Fall risk precautions. Currently on Coumadin. Assessment & Plan (09/29/2022 1:41 PM STATION ENGINEER): History of CVA with right hemiparesis and right-sided weakness. Currently on Coumadin. Patient continues to do well. Continue exercise plan for PT. Fall risk precautions. Avoid sudden/drastic movement. Assessment & Plan (03/14/2022 11:34 AM CDT): History of CVA with mild hemiparesis and right-sided weakness. He continues to do well. Continue Coumadin. Continue exercises learned from PT. Discussed again fall risk precautions. Advised to avoid sudden/drastic movement. Assessment & Plan (12/10/2021 1:33 PM CDT): History of CVA with mild hemiparesis and right-sided weakness. Currently on Coumadin. Patient continues well. Continue exercises learned from PT. Fall risk precautions again discussed. Assessment & Plan (10/30/2021 5:06 PM STATION ENGINEER): History of CVA with mild hemiparesis and right-sided weakness. He continues to do well. Currently on Coumadin. Baby aspirin was discontinued. Continue exercises learned from PT. Fall risk precautions discussed. Assessment & Plan (06/14/2021 12:38 PM CDT): History of CVA with mild hemiparesis and right-sided weakness. He continues to do well. Continue Coumadin and baby aspirin and exercises learned from PT. Continue low-cholesterol/salt diet. Fall risk precautions discussed. He is ambulating well. Assessment & Plan (02/06/2021 12:52 PM CDT): CVA with mild hemiparesis/mild right-sided weakness. He continues to do well. Currently on Coumadin and baby aspirin. Continue exercises learned from PT. Always stay on a low-cholesterol/salt diet. Assessment & Plan (11/21/2020 12:54 PM CDT): CVA with mild hemiparesis/mild right-sided weakness. Patient currently is on Coumadin. He was advised to get started back on baby aspirin daily which was temporarily held due to bleeding from scalp laceration. Scalp is completely healed. No episodes of bleeding. CBC back to normal. Advised to continue low- cholesterol/salt diet. Stay active. Continue exercises learned from PT. Assessment & Plan (07/25/2020 2:58 PM STATION ENGINEER): CVA with mild hemiparesis/mild right-sided weakness. Under the care of neurology. Patient is off Eliquis and currently on Coumadin 5 mg daily except 2.5 mg on Mondays. Also on baby aspirin daily. Recent INR 2.7. Continue low-cholesterol/salt diet. Stay active. Continue exercises learned from PT. Assessment & Plan (03/21/2020 3:15 PM CDT): CVA with mild hemiparesis/mild right-sided weakness. Under the care of neurology. Currently off Eliquis. Started recently on Coumadin 5 mg daily. Still on baby aspirin 81 mg daily. Continue statins. BP control. Always stay on a low-cholesterol low- salt diet. Exercise and stay active. Continue exercises learned from PT. Assessment & Plan (02/08/2020 4:48 PM CDT): CVA with mild hemiparesis/mild right-sided weakness and on of tingling sensation. Will refer back to neurology/Dr. Murphy. Continue Eliquis 5 mg twice daily, aspirin 81 mg daily, atorvastatin 20 mg daily. Control BP with lisinopril 10 mg daily. Always stay in a low-cholesterol/salt diet. He was again advised to continue exercises learned from PT. Assessment & Plan (10/05/2019 1:52 PM STATION ENGINEER): CVA with mild hemiparesis/mild right-sided weakness.--Stable. Patient is currently doing well. Continue apixaban 5 mg twice daily and atorvastatin 20 mg daily. Always control blood pressure. He is on lisinopril 10 mg daily. Advised to continue low-cholesterol/salt diet. Exercise and stay active. Continue home exercises learned from PT. Follow-up with neurology. Assessment & Plan (06/04/2019 11:59 AM CDT): CVA with right hemiparesis--mild right-sided weakness and paresthesia and possible recent TIA versus extension of his old stroke or new ischemic stroke.--Continue apixaban 5 mg p.o. twice daily and atorvastatin 20 mg daily. Patient is started on lisinopril 10 mg daily. Follow-up with urologist at [facility]. Assessment & Plan (02/24/2019 3:12 PM CDT): Recent TIA Assessment & Plan (01/12/2019 1:15 PM CDT): With mild right-sided weakness. Continue baby aspirin and Eliquis as ordered. He sees Dr. Murphy/neurologist regularly. Assessment & Plan (07/28/2018 2:34 PM STATION ENGINEER): W/ mild R sided weakness. On Baby asa and Eliquis.--Under DR Murphy. (HFpEF) heart failure with p reserved ejection fraction ([facility]/H[facility]/HCC) Cardiac pacemaker in situ Overview (04/13/2018): s/p [employer] dual chamber pacemaker in 2014 Assessment & Plan (03/27/2025 12:05 PM CDT): SP [employer] dual-chamber pacemaker 2014, SP new RV lead implant. Device functioning as programmed. Patient continues to do well. Assessment & Plan (08/10/2024 3:49 PM STATION ENGINEER): SP [employer] dual-chamber pacemaker 2015, SP new RV lead implant. Device functioning as programmed. Patient continues to do well. Assessment & Plan (02/03/2024 4:01 PM CDT): SP [employer] dual-chamber pacemaker 2015, SP new RV lead implant. Patient continues to do well. Device functioning well as programmed. Assessment & Plan (06/01/2023 7:25 AM CDT): SP [employer] dual-chamber pacemaker 2015, SP new RV lead implant. Device functioning well as programmed. Assessment & Plan (01/19/2023 10:00 AM CDT): SP [employer] dual chamber pacemaker 2015, SP new RV lead plan. Denies any syncopal episodes or dizziness or lightheadedness since the implant. Device functioning well as programmed. Assessment & Plan (09/29/2022 1:38 PM STATION ENGINEER): SP [employer] dual-chamber pacemaker 2014, SP new RV lead implant. Continues to do well. Denies any syncopal episodes or dizziness or lightheadedness since the implant. Device functioning well as programmed. Assessment & Plan (03/14/2022 11:28 AM CDT): SP [employer] dual chamber pacemaker 2014, SP new RV lead implant. Since then the implant has been doing well with no syncopal episodes or dizziness or lightheadedness. Device tolerated and functioning well as programmed. Assessment & Plan (10/30/2021 5:00 PM STATION ENGINEER): SP [employer] dual-chamber pacemaker 2015, SP new RV lead implant. Denies any syncopal episode/dizziness. He continues to do well. Device interrogated and functioning well as programmed. Assessment & Plan (09/25/2021 12:45 PM STATION ENGINEER): SP [employer] dual-chamber pacemaker 2015, SP new RV lead implant. He continues to do well. Device interrogated and functioning as programmed. No episodes of syncope/dizziness. Assessment & Plan (06/14/2021 12:33 PM CDT): SP [employer] dual-chamber pacemaker 2015, SP new RV lead implant. Device interrogated and functioning as programmed. Patient denies any episode of syncope/dizziness. He continues to do well. Assessment & Plan (02/06/2021 12:49 PM CDT): SP [employer] dual-chamber pacemaker 2015, SP new RV lead implant-he continues to do well. No episode of syncope/dizziness. Device interrogated and functioning as programmed. Assessment & Plan (11/21/2020 12:50 PM CDT): SP [employer] dual-chamber pacemaker 2015, SP new RV lead implant. Patient denies any episode of syncope/dizziness. Device was recently checked and functioning as programmed. Assessment & Plan (07/25/2020 2:59 PM STATION ENGINEER): SP [employer] dual-chamber pacemaker 2015-SP new RV lead implant. No episodes of syncope/dizziness. Functioning well as programmed. Seen recently by cardiology. Assessment & Plan (03/21/2020 3:16 PM CDT): S/P new RV lead implant. No episodes of retention/syncope/dizziness. Functional well as program. Follow-up with cardiology. Assessment & Plan (02/08/2020 4:49 PM CDT): S/P new RV lead implant. Patient continues to do well. No episode of hypotension/syncope/dizziness. Follow-up with cardiology. Assessment & Plan (10/05/2019 2:02 PM STATION ENGINEER): S/P new RV lead implant --since then patient has been doing well. Denies any episode of hypotension/syncope/dizziness. Follow-up with cardiology. Assessment & Plan (06/04/2019 12:10 PM CDT): S/P new RV lead implant--patient is doing well. Denies any episodes of hypotension/syncope/dizziness. Follow-up with cardiology. Assessment & Plan (02/28/2019 5:19 PM CDT): S/P new RV lead implant. Since then patient denies any episodes of hypotension/syncope/dizziness. Patient is doing well. Follow-up with cardiology. Assessment & Plan (01/12/2019 1:25 PM CDT): S/P new RV lead implant. Patient currently doing well with no more episodes of hypotension/syncope/dizziness. Recently seen and evaluated by his steam trap man. Assessment & Plan (09/20/2018 5:46 PM STATION ENGINEER): Doing well/pacing. Assessment & Plan (07/28/2018 2:41 PM STATION ENGINEER): Doing well / pacing AAA (abdominal aortic aneurysm) Overview (10/05/2019): [facility] Assessment & Plan (03/27/2025 12:07 PM CDT): Stable and asymptomatic. He goes to [facility] for follow-ups. Assessment & Plan (08/10/2024 3:51 PM STATION ENGINEER): Stable and asymptomatic. He follow-ups and goes to [facility] faithfully. Assessment & Plan (02/03/2024 4:05 PM CDT): Stable asymptomatic. He follows up regularly at the [facility]. Scheduled for another ultrasound. Assessment & Plan (09/30/2023 2:40 PM STATION ENGINEER): Stable. Asymptomatic. He follows up regularly at the [facility]. Assessment & Plan (06/01/2023 7:25 AM CDT): Stable. Follow-up cardiology/vascular at [facility]. Assessment & Plan (01/19/2023 10:00 AM CDT): Stable. Follow-up cardiology at the [facility]. Assessment & Plan (09/29/2022 1:38 PM STATION ENGINEER): Stable. Under the care of cardiology at [facility]. Assessment & Plan (03/14/2022 11:27 AM CDT): Stable. [facility] and [facility]. Assessment & Plan (10/30/2021 5:01 PM STATION ENGINEER): Stable. He follows up with cardiology. Likewise follows up at the [facility]. Assessment & Plan (06/14/2021 12:34 PM CDT): Stable. He goes to [facility] and is followed up by cardiology as well. Assessment & Plan (02/06/2021 12:50 PM CDT): Stable. He goes to [facility] for this. Likewise followed-up by cardiology. Assessment & Plan (11/21/2020 12:51 PM CDT): [facility]. Assessment & Plan (09/03/2020 4:08 PM STATION ENGINEER): He is under the care of [facility] and cardiology. Assessment & Plan (03/21/2020 3:13 PM CDT): [facility] is [facility] of [facility]. Likewise under the care of cardiology. Resolved Problems Problem Noted Date Diagnosed Date Resolved Date Closed fracture of multiple ribs of left side with routine healing 09/30/2023 02/22/2025 Assessment & Plan (09/30/2023 2:37 PM STATION ENGINEER): X-ray showed nondisplaced fracture of the sixth and seventh ribs. Patient continues to do well. Pain is much better and improved. Advised to continue breathing exercise. Rib pain on left side 09/15/20232024 Assessment & Plan (09/15/2023 3:31 PM STATION ENGINEER): History of fall August. Soreness and tenderness left rib cage area no flank or CVA area.--Will get x-ray of the left ribs, chest x-ray and urine reflex as well. Further recommendations after reviewing x-ray results.--Consider CT of the abdomen and pelvis without if urine is positive for blood. Had CT of the abdomen/pelvis without 2021 with negative nephrolithiasis. May take Tylenol Extra Strength 2 every 8 hours as needed. Warm compress. Skin tear of right elbow without complication 09/15/1902/22/2025 Assessment & Plan (09/30/2023 2:04 PM STATION ENGINEER): Open skin tear right dorsal aspect of length--close and almost completely healed. Healing nicely. No sign of infection. Continue Silvadene cream once a day until completely healed and closed. Done with Keflex 500 mg 3 times daily for 10 days. Had Tdap 2019. Assessment & Plan (09/15/2023 3:28 PM STATION ENGINEER): Open skin tear right dorsal aspect of hand 2 weeks ago.--Wound was cleansed with normal saline and hydrogen peroxide. Silvadene cream applied. Dry dressing nonstick applied. Advised patient to continue twice daily dressing with Silvadene cream. Keep wound always clean and dry. Sinus symptoms sports infection discussed. Start Keflex 500 mg 3 times daily for 10 days. Had Tdap 2019. Reevaluate patient in 1 to 2 weeks. 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 Refer patient to PT. Warm compress. Consider referral to Ortho. Chest pain 11/01/2021 01/14/2023 Closed fracture of one rib o f left side with routine healing 10/30/2021 01/14/2023 Assessment & Plan (10/30/2021 4:58 PM STATION ENGINEER): Closed fracture of seventh rib left side secondary to a fall--clinically patient is doing well. Pain is much better. Same with breathing. He was advised to continue breathing exercises. Aerophagia 07/19/2021 02/22/2025 Cigarette nicotine dependence in remission 10/23/2020 11/01/2021 Scalp laceration 08/31/2020 01/02/2021 Assessment & Plan (11/21/2020 12:54 PM CDT): Scalp laceration--completely healed. Assessment & Plan (09/03/2020 4:10 PM STATION ENGINEER): Seen by surgeon yesterday. Wound is well coaptated with no sign of infection. No bleeding. Sutures intact which will absorb on its own. Discussed signs and symptoms of infection and to call me. We will continue to monitor. Advised to always keep skin/wound clean and dry. Anemia 08/31/2020 07/04/2021 Assessment & Plan (02/06/2021 12:51 PM CDT): Recent CBC back to normal. No episodes of bleeding. We will continue to monitor. Assessment & Plan (11/21/2020 12:52 PM CDT): Acute blood loss from head scalp laceration. No episodes of bleeding. CBC is back to normal. Assessment & Plan (09/03/2020 4:11 PM STATION ENGINEER): Acute blood loss from head scalp laceration. No bleeding noted per scalp laceration. Will monitor. Will get CBC, CMP and INR. Acute blood loss anemia 08/22/2020 05/0 11/2020 Acute swimmer's ear of right side 06/19/2020 01/02/2021 Acute epididymitis 04/13/2020 Assessment & Plan (07/25/2020 2:57 PM STATION ENGINEER): Right acute epididymitis--scrotal pain resolved. Done with Bactribhavani DS. Seen by urologist recently. Has a follow-up appointment sometime next month. Advised to continue wearing scrotal support. Assessment & Plan (04/13/2020 2:10 PM CDT): Right acute epididymitis--improving. Right scrotal pain and discomfort is much better. Currently on Bactrim DS twice daily for some total of 10 days. Seen yesterday by urologist. Advised to continue Bactrim DS compliantly and faithfully. Increase fluids. Wear scrotal support. Consider scrotal ultrasound if indicated. 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 Will get x-ray of cervical spines. For now continue Tylenol as ordered. Consider PT. Subconjunctival hemorrhage, right 02/21/2020 01/02/2021 Assessment & Plan (02/21/2020 1:39 PM CDT): Will monitor for now. Patient denies any blurry vision/eye pain. He is asymptomatic. Reassurance. He was advised to call me if worse or if he starts experiencing blurry vision and pain. Rash 02/08/2020 01/02/2021 Assessment & Plan (02/21/2020 1:40 PM CDT): Pruritic erythematous rash sacral area/in between gluteal folds--- resolved. Advised to continue Lotrisone cream daily from twice daily for another 5 days then discontinue. Advised to keep skin always clean and dry. Assessment & Plan (02/08/2020 12:05 PM CDT): Pruritic erythematous rash sacral area--possibly fungal. Trial of Lotrisone cream twice daily to affected skin for at least 2 weeks then reevaluate. Lumbar radiculopathy 11/29/2019 025 Overview (03/02/2020): Added automatically from request for surgery [id number] Assessment & Plan (01/19/2023 10:02 AM CDT): CT of lumbar spine 2018 showed multilevel lumbar spondylosis. SP epidural steroid injections. So far patient continues to do well. Has good range of motion and ambulating well. Continue exercises learned from PT. Assessment & Plan (09/29/2022 1:41 PM STATION ENGINEER): CT of lumbar spine 2018 showed multilevel lumbar spondylosis. He continues to do well. Advised to get exercises learned from PT. Seen by pain management and underwent epidural steroid injection. Assessment & Plan (03/14/2022 11:34 AM CDT): CT of lumbar spines 2018 showed multilevel lumbar spondylosis. So far patient continues to do well. Continue exercises learned from PT. Cannot get MRI due to his pacemaker. Assessment & Plan (01/15/2022 2:43 PM CDT): CT of lumbar spines done 2018 showed multilevel lumbar spondylosis.--Start Medrol Dosepak and tramadol as discussed. Refer to PT as well. He was told by cardiology that he cannot get MRI due to his pacemaker. Assessment & Plan (07/25/2020 2:54 PM STATION ENGINEER): So far patient is doing well. Denies any low back pain. Denies any bladder/bowel dysfunction. She had epidural injections. Under the care of pain management. Assessment & Plan (03/27/2020 3:15 PM CDT): Low back pain radiating to right inguinal area. He just had epidural injection 2 to 3 weeks ago. He is under the care of pain management. Patient currently on Coumadin due to DVT--he actually has an appointment tomorrow with pain management but was canceled due to patient being on anticoagulation. For now trial of tramadol 50 mg 3 times daily as needed. Adverse effect/reactions discussed. Advised not to operate any machine or drive if drowsy. We will continue to monitor for now. Call me if worse. Acute bronchitis due to othe r specified organisms 08/09/2019 11/30/2019 Assessment & Plan (08/18/2019 3:12 PM STATION ENGINEER): Persistent cough rule out pneumonia--we will get chest x-ray PA/lateral. Continue Z-Nelson as previously ordered. Start Tessalon Perles 100 mg 3 times daily as needed. May take Tylenol as needed. Rest and increase fluids. Assessment & Plan (08/09/2019 3:36 PM STATION ENGINEER): Start patient on Z-Nelson x1 as directed and Mucinex DM twice daily as needed. Tylenol as needed. Acute sinusitis 08/09/2019 11/30/2019 Assessment & Plan (08/18/2019 3:13 PM STATION ENGINEER): Increased sinus pressure resolved. Has only mild nasal congestion and drainage. Continue Zyrtec 10 mg nightly. Consider Flonase nasal spray if indicated. Assessment & Plan (08/09/2019 3:07 PM STATION ENGINEER): Start Z-Nelson x1 as directed as stated above. Zyrtec 10 mg nightly. Consider Flonase nasal spray if indicated. Lumbar radiculopathy 04/07/2019 020 Assessment & Plan (06/04/2019 12:01 PM CDT): Low back pain is getting better since he has had epidural transforaminal lumbar injection. He is scheduled for another lumbar epidural injection June 08. Follow-up with pain management. Hemiparesis affecting right side as late effect of stroke ([facility]) 04/06/201911/29 Transient ischemic attack 02/28/2019 Assessment & Plan (02/28/2019 5:14 PM CDT): Right upper extremity/right lower extremity weakness resolved. Continue baby aspirin 81 mg daily, Eliquis 5 mg twice daily and increased dose of atorvastatin 20 mg daily. Patient has an appointment with [facility] March 26. Likewise follow-up with Dr. Murphy/neurologist. Pseudophakia of both eyes 02/09/2019 HTN (hypertension) 01/22/2019 0 Pacemaker 01/22/2019 11/30/2019 Atherosclerosis of coronary artery 01/22/2019 11/30/2019 EMMANUEL (obstructive sleep apnea) 01/22/2019 11/30/2019 Stroke (cerebrum) ([facility]) 01/22/2019 11/30/2019 Rectal bleeding 01/12/2019 11/01/2021 Assessment & Plan (02/08/2020 4:46 PM CDT): Seen recently by GI. Had colonoscopy and endoscopy which were unremarkable. Patient is a follow-up appointment with another GI and scheduled for sigmoidoscopy. Assessment & Plan (01/12/2019 1:24 PM CDT): Will refer patient to GI for colonoscopy and possible endoscopy. We will get routine blood tests including CBC. For now advised patient to continue to monitor rectal bleed and if persistent or much worse, stop anticoagulation Eliquis and baby aspirin. States rectal bleed is occasional. Patient is on anticoagulation for both atrial fibrillation and stroke. Discussed signs and symptoms of bleeding. He was advised to call his steam trap man regarding holding anticoagulation if ever he will have the procedure done. Syncope 10/21/2018 11/23/2018 Orthostatic hypotension 08/04/2018 06/0 03/2021 Syncope 08/04/2018 09/08/2018 Syncope and collapse 08/03/2018 020 Assessment & Plan (09/20/2018 5:49 PM STATION ENGINEER): Already seen and evaluated by cardiology. Possibly from orthostatic hypotension. Patient is off of all his antihypertensive. Recently started on Midodrine 5 mg twice daily with normal to high normal blood pressure. No episodes of hypotension. Coronary artery disease invo lving mcgrath coronary artery of mcgrath heart without angina pectoris 07/28/2018 11/30/2019 Assessment & Plan (10/05/2019 1:53 PM STATION ENGINEER): Denies any chest pain/shortness of breath. No angina. Doing well with current regimen baby aspirin daily, statins, nitroglycerin sublingual as needed. Mononitrate ER was discontinued due to episode of hypotension which is complete resolved. Continue diet and exercise as stated above. Follow-up with cardiology. Assessment & Plan (06/04/2019 12:08 PM CDT): No angina. Denies any chest pain/shortness of breath. Continue baby aspirin daily, statins and nitroglycerin sublingual as needed. Mononitrate ER 30 mg daily was discontinued due to episode of hypotension. Always stay on low-cholesterol/salt diet. Follow-up with cardiology. Assessment & Plan (02/28/2019 5:27 PM CDT): Denies any angina. Denies any chest pain/shortness of breath. Continue isosorbide mononitrate ER 30 mg daily, aspirin, statins and nitroglycerin 0.4 mg sublingual as needed. Assessment & Plan (01/12/2019 1:20 PM CDT): Denies any chest pain. No angina. Continue isosorbide mononitrate ER 30 mg daily and nitroglycerin 0.4 mg sublingual as needed. Assessment & Plan (07/28/2018 2:47 PM STATION ENGINEER): Recently started on isosorbide mononitrate ER 30 mg once daily and nitroglycerin 0.4 mg sublingual as needed. NSTEMI (non-ST elevated myoc ardial infarction) ([facility]) 07/07/2018 09/08/2018 Atypical chest pain 07/05/2018 09/08/19 19 Lumbar facet arthropathy 06/03/201804/2019 Abdominal hernia 04/30/2016 09/08/2018 Pericardial effusion ([facility]) 12/09/2014 09/08/2018 Benign paroxysmal positional vertigo 11/21/2014 02/05/2021 Ringing in right ear 11/21/2014 019 Asymptomatic hyperuricemia 03/31/2014 0 09/08/2018 Screening PSA (prostate specific antigen) 03/12/2013 02/09/2024 Esophageal reflux 03/12/2013 09/08/2018 Assessment & Plan (07/29/2018 3:13 PM STATION ENGINEER): Gerd flare up--will increase Pantoprazole to 40 mg od from 20 mg od. Hyperlipidemia 03/12/2013 09/08/2018 Assessment & Plan (06/04/2019 12:09 PM CDT): Lipids well controlled. Continue atorvastatin 20 mg daily and low-cholesterol diet. Assessment & Plan (02/28/2019 5:18 PM CDT): Controlled. Atorvastatin was increased to 20 mg daily from 10. Stay on a low-cholesterol diet. Assessment & Plan (07/28/2018 2:40 PM STATION ENGINEER): Controlled. On atorvastatin 20 mg od. Paroxysmal atrial fibrillation 02/01/2020 Assessment & Plan (06/04/2019 12:04 PM CDT): Controlled and remaining in sinus rhythm. Continue Eliquis 5 mg twice daily. Follow-up with Dr. Pickett. Assessment & Plan (02/28/2019 5:16 PM CDT): Currently in sinus rhythm. Continue Eliquis 5 mg twice daily. Assessment & Plan (01/12/2019 1:19 PM CDT): Controlled. In sinus rhythm with no episodes of A. fib recently. Continue Eliquis 5 mg twice daily. Assessment & Plan (09/20/2018 5:47 PM STATION ENGINEER): Controlled. Currently on Eliquis. Assessment & Plan (07/28/2018 2:37 PM STATION ENGINEER): Controlled. --Currently on Eliquis 5 mg bid. Sick sinus syndrome ([facility]) 09/11/2016 Benign essential hypertension 09/11/2016 Pure hypercholesterolemia SSS (sick sinus syndrome) ([facility]) 03/19/2016 Overview (03/18/2016): s/p [employer] dual chamber pacemaker in 2014 Left-sided cerebrovascular a ccident (CVA) ([facility]) 09/11/2016 Chronic diastolic CHF (conge stive heart failure) ([facility]) 03/19/2016 SSS (sick sinus syndrome) ([facility]) 04/13/2018 Overview (09/11/2016): s/p [employer] dual chamber pacemaker in 2015 Sleep apnea 01/02/2021 Overview (09/11/2016): unable to tolerate CPAP due to epixstasis. Has an oral appliance Assessment & Plan (11/21/2020 12:49 PM CDT): Stable. Continue CPAP machine/mask compliantly and faithfully. Continue good/proper sleep hygiene. Assessment & Plan (07/25/2020 2:54 PM STATION ENGINEER): Stable. Continue CPAP machine/mask compliantly and faithfully. Continue good/proper sleep hygiene. Exercise and stay active. Assessment & Plan (03/21/2020 3:12 PM CDT): Stable and controlled. Continue CPAP machine/mask compliantly and faithfully. Exercise and stay active. Assessment & Plan (02/21/2020 1:30 PM CDT): Stable and controlled. States he uses his CPAP machine/mask compliantly and faithfully and tolerating well. Assessment & Plan (02/08/2020 4:44 PM CDT): Stable and controlled. Tolerating CPAP machine/mask. Advised to use it compliantly and faithfully. Follow-up with pulmonology. Exercise and stay active. Assessment & Plan (10/05/2019 1:52 PM STATION ENGINEER): Stable and controlled. Advised to continue CPAP machine/mask compliantly and faithfully. Follow-up with Dr. Vora/pulmonology. Exercise and stay active. Assessment & Plan (06/04/2019 12:03 PM CDT): Advised patient to continue CPAP machine compliant and faithfully. States she is having problems with his CPAP mask. He was advised to call Dr. Vora's office regarding this and get a well fitted mask. Assessment & Plan (02/24/2019 3:16 PM CDT): Patient is now back with his CPAP machine. He wears his CPAP mask compliantly and is tolerating well. Patient is under the care of Dr. Vora.--Will refer back for follow-up. Assessment & Plan (01/12/2019 1:31 PM CDT): Patient cannot tolerate CPAP machine. Likewise cannot tolerate oral appliance due to TM pain. Patient is looking into inspire device. Advised to follow-up with special events coordinator and discuss this with him. Assessment & Plan (07/29/2018 3:21 PM STATION ENGINEER): Stable---on oral appliance. ( cannot tolerate CPAP ). Diastolic heart failure ([facility]) 04/13/2018 Encounters Date Type Department Care Team Description 04/21/2025 12:20 PM CDT - 04/21/2025 12:40 PM CDT Surgery [facility] [place] [address] [id number] Lacie Villatoro MD INJECTION EPIDURAL [id number] 04/21/2025 11:14 AM CDT - 04/21/2025 12:20 PM CDT Hospital Encounter [facility] [place] [address] [id number] Lacie Villatoro MD Discharge Disposition: Home or Self Care (Routine Discharge) 04/21/2025 11:00 AM CDT Allied Health/Nurse Visit [facility] [address] [address] James Pickett MD Anticoagulation (protime) 04/21/2025 Travel 04/14/2025 Scan General [facility] HEALTH INFO SRVCS Scanned, [facility] 03/29/2025 Telephone [facility] [address] [address] James Pickett MD Surgical Clearance 03/25/2025 Results Follow-Up [address] [place] [address] Saul Trevino MD CBC W/DIFF AUTOMATED, COMPREHENSIVE METABOLIC PANEL, LIPID PANEL, Additional followed-up results: 4 03/24/2025 6:45 AM CDT - 03/24/2025 11:59 PM CDT Hospital Encounter [facility] [place] [address] Saul Trevino MD Discharge Disposition: Home or Self Care (Routine Discharge) 03/24/2025 Travel 03/22/2025 1:00 PM CDT Office Visit [address] [phone] Saul Trevino MD Follow Up (6mo) 03/22/2025 Travel 03/21/2025 11:05 AM CDT Allied Health/Nurse Visit [facility], [address] [address] James Pickett MD Remote Device Check 03/18/2025 Prep for Procedure [facility] [place] [address] [id number] Yumiko Lisa, COMMERCIAL REPORTER 03/16/2025 Scan HEALTH INFO SRVCS Scanned, [facility] 02/22/2025 11:45 AM CDT Office Visit [facility], [place] [address] [place] [address] Minna Segovia, ANP-BC Atrial Fibrillation; Cardiac Device Management (6 month follow up) 02/22/2025 11:00 AM CDT Allied Health/Nurse Visit [facility], [facility] [address] [place] [address] Vikki Nichole MD Shah, Atul, MD Pacemaker Check 02/22/2025 Travel 02/17/2025 9:37 AM CDT - 02/17/2025 10:14 AM CDT Hospital Encounter [facility] [address] [place] [address] Arvind Cyndi Frank, ELECTRON GUN ASSEMBLER URI Discharge Disposition: Home or Self Care (Routine Discharge) 02/17/2025 Telephone [facility], [place] [address] [place] [address] Natalia Rosas PA-C Information (Patient request [facility], ) 02/17/2025 Travel 02/16/2025 MyChart Message Enc [facility], [place] [address] [place] [address] Minna Segovia, ANP-BC Test Results 02/11/2025 7:42 AM CDT - 02/11/2025 11:59 PM CDT Hospital Encounter [facility] [place] [address] Minna Segovia, ANP-BC Discharge Disposition: Home or Self Care (Routine Discharge) 02/11/2025 Telephone [facility], [place] [address] [place] [address] Katelyn Bernabe, RN Results 02/11/2025 Travel 02/01/2025 Mysafeplacet Message Enc [facility], [place] [address] [place] [address] Minna Segovia, ANP-BC Ultrasound for Aortic Aneurysm from Last 3 Months Immunizations Immunization Administration Dates Next Due Arexvy Respiratory Syncytial Virus (RSV, adjuvanted) 0.5 mL, PF 06/22/2024 Fluad influenza vaccine, Basim drivalent (aIIV4), Inactivated, adjuvanted, preservative free, 0.5 mL,IM use 06/27/2023 Fluzone 6 Months+ Quad (0.5 mL Prefilled Syringe) 06/03/2019 Fluzone High Dose (IIV, triv alent, 0.5mL) 06/22/2024 Fluzone High Dose - >Age 65 (Prefilled Syringe) 06/05/2022,06/14/2021,05/07/2020 Influenza (Generic) 06/01/2022,,05/07/2020,2018,06/25/2014 Influenza Adult (Generic) 06/12/2018,01/2017,06/04/2016,2014 MODERNA COVID-19 (12+) MRNA, LNP-S, PF, 100 MCG/ 0.5 ML DOSE 10/23/2020,09/25/2020 MODERNA COVID-19 (MATERIAL PLANNER WICHO ESA), MRNA, LNP-S, PF, 50 MCG/ 0.25 ML DOSE 02/09/2022 Pneumococcal (Pneumovax 23) 06/13/2015, 3 Pneumococcal (Prevnar 13) 06/24/2013 Shingrix 07/10/2018,05/08/2018 Tdap (Boostrix) 08/22/2020 Tdap (Generic) 02/28/2021 Family History Medical History Relation Comments No Known Problems Brother Multiple Sclerosis Daughter 1 No Known Problems Daughter 2 No Known Problems Daughter 3 Arthritis Father Cancer Father Brain tumor Emphysema Father brain cancer Father No Known Problems Maternal Aunt No Known Problems Maternal Uncle Cancer Mother Lymphoma leukemia Mother lymphoma Mother Denies premature family history of CVD Other No Known Problems Paternal Aunt No Known Problems Paternal Uncle No Known Problems Sister Relation Status Comments Brother Daughter 1 (Age 41) of MS Daughter 2 Alive Daughter 3 Alive Father (Age 67) of brain tumor Maternal Aunt Maternal Uncle Mother (Age 71) of cancer , blood cancer Other Paternal Aunt Paternal Uncle Sister Social History Tobacco Use Types Packs/Day Years Used Date Smoking Tobacco: Former Cigarettes 1 10 0 03/27/1966 - 03/27/1976 Passive Smoke Exposure: Past Smokeless Tobacco: Never Tobacco Cessation:Counseling Given: No Comments:former smoker Passive Exposure Comments:cigarette smoker Alcohol [...] Sex Assigned at Male 07/05/2018 8:48 PM STATION ENGINEER Legal Sex Male 11:44 PM CDT Gender Identity Male 07/05/2018 8:48 PM STATION ENGINEER Sexual Orientation Straight 08/03/2018 2: 21 PM STATION ENGINEER Occupation Industry Job Start Date Job End Date 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. [facility] [address] [place], [place] [id number] 09/20/2025 12:00 PM STATION ENGINEER Office Visit [facility], [place] [address] [place] [address] James Pickett MD Three [facility]. [place] [address] [place] [address] 09/27/2025 1:00 PM STATION ENGINEER Office Visit [facility] [address] [place] [address] Saul Trevino MD [address] [place] [address] Health Maintenance Due Date Last Done Comments Annual Medicare Wellness Visit 2010 PHQ-2 (Physician [place]) 09/01/2024 09/30/2023 COVID-19 Vaccine ( season) 2024 06/14/2024, 06/27/2023, 02/09/2022, Additional history exists DTaP, Tdap and Td Vaccines (3 - Td or Tdap) 02/28/2031 02/28/2021, 08/22/2020 Pneumococcal Vaccine: 50+ Years Completed 06/13/2015, 06/24/2013, 06/24/2013 Zoster Vaccines Completed 07/10/2018, 05/08/2018 Colorectal Cancer Screening Colonoscopy (10 Years) Discontinued 03/01/2019, 09/01/2016 RSV Immunization or 60+ Years Completed 06/22/2024 Meningococcal B Vaccine Aged Out No l onger eligible based on patient's age to complete this topic Meningococcal Vaccine Aged Out No dina luis eligible based on patient's age to complete this topic RSV Immunizations Under 20 Months Aged Out No longer eligible based on patient's age to complete this topic Goals Goal Patient Goal Type Associated Problems Recent Progress Patient-Stated? Author Patient will return to prior living situation and remain independent in ADLs upon discharge from hospital General No Anna Wall RN Medical Devices Implanted Type Area Mainspring Former Brace End Device Identifier Shelf Expiration Date Model / Serial / Lot Ra Lead-02/17/20 15 Implanted: by James Pickett MD (Quantity not on file) Lead Implant Right: Atrium [employer] [id number] / [id number] / Rv Lead-10/21/19 Implanted: by James Pickett MD (Quantity not on file) Lead Implant Right: Ventricle [employer] [id number] / [id number] / Bs Pacemaker- Implanted:Qt y: 1 on 03/21/2023 by James Pickett MD Pacemaker [employer] [id number] 12/01/2024 [id number] / [id number] / Explanted Type Area Mainspring Former Brace End Device Identifier Shelf Expiration Date Model / Serial / Lot Pacemaker-2014 Implanted:02/16 by James Pickett MD (Quantity not on file) Explanted:Qty: 1 on 03/21/2023 by James Pickett MD Pacemaker 12/09/2016 / [id number] / Description:DUAL CHAMBER 2020 Battery Advisory Procedures Procedure Name Priority Date/Time Associated Diagnosis Comments XR PAIN CLINIC C-ARM Today 04/21/2025 11:26 AM CDT PROTHROMBIN TIME, FINGERSTICK Routine 04/21/2025 10:59 AM CDT Paroxysmal atrial fibrillation (CMS/HCC HHS/HCC) 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) use of anticoagulants PROSTATE SPECIFIC ANTIGEN,SCREENING Routine 03/24/2025 7:18 AM CDT Prostate cancer (CMS/HCC HHS/HCC) Subclavian vein thrombosis, left (CMS/HCC HHS/HCC) Paroxysmal atrial fibrillation (CMS/HCC HHS/HCC) Coronary artery disease involving mcgrath coronary artery of mcgrath heart without angina pectoris Cardiac pacemaker in situ EMMANUEL on CPAP Multiple thyroid nodules Dyslipidemia History of CVA with residual deficit Abdominal aortic aneurysm (AAA) without rupture, unspecified part Urinary frequency Screening PSA (prostate specific antigen) VITAMIN B12 / FOLATE Routine 03/24/2025 7:18 AM CDT Prostate cancer (CMS/HCC HHS/HCC) Subclavian vein thrombosis, left (CMS/HCC HHS/HCC) Paroxysmal atrial fibrillation (CMS/HCC HHS/HCC) Coronary artery disease involving mcgrath coronary artery of mcgrath heart without angina pectoris Cardiac pacemaker in situ EMMANUEL on CPAP Multiple thyroid nodules Dyslipidemia History of CVA with residual deficit Abdominal aortic aneurysm (AAA) without rupture, unspecified part Urinary frequency URIC ACID BLOOD Routine 03/24/2025 7:18 AM CDT Prostate cancer (CMS/HCC HHS/HCC) Subclavian vein thrombosis, left (CMS/HCC HHS/HCC) Paroxysmal atrial fibrillation (CMS/HCC HHS/HCC) Coronary artery disease involving mcgrath coronary artery of mcgrath heart without angina pectoris Cardiac pacemaker in situ EMMANUEL on CPAP Multiple thyroid nodules Dyslipidemia History of CVA with residual deficit Abdominal aortic aneurysm (AAA) without rupture, unspecified part Urinary frequency TSH W/REFLEX Routine 03/24/2025 7:18 AM CDT Prostate cancer (CMS/HCC HHS/HCC) Subclavian vein thrombosis, left (CMS/HCC HHS/HCC) Paroxysmal atrial fibrillation (CMS/HCC HHS/HCC) Coronary artery disease involving mcgrath coronary artery of mcgrath heart without angina pectoris Cardiac pacemaker in situ EMMANUEL on CPAP Multiple thyroid nodules Dyslipidemia History of CVA with residual deficit Abdominal aortic aneurysm (AAA) without rupture, unspecified part Urinary frequency LIPID PANEL Routine 03/24/2025 7:18 AM CDT Prostate cancer (CMS/HCC HHS/HCC) Subclavian vein thrombosis, left (CMS/HCC HHS/HCC) Paroxysmal atrial fibrillation (CMS/HCC HHS/HCC) Coronary artery disease involving mcgrath coronary artery of mcgrath heart without angina pectoris Cardiac pacemaker in situ EMMANUEL on CPAP Multiple thyroid nodules Dyslipidemia History of CVA with residual deficit Abdominal aortic aneurysm (AAA) without rupture, unspecified part Urinary frequency COMPREHENSIVE METABOLIC PANEL Routine 03/24/2025 7:18 AM CDT Prostate cancer (CMS/HCC HHS/HCC) Subclavian vein thrombosis, left (CMS/HCC HHS/HCC) Paroxysmal atrial fibrillation (CMS/HCC HHS/HCC) Coronary artery disease involving mcgrath coronary artery of mcgrath heart without angina pectoris Cardiac pacemaker in situ EMMANUEL on CPAP Multiple thyroid nodules Dyslipidemia History of CVA with residual deficit Abdominal aortic aneurysm (AAA) without rupture, unspecified part Urinary frequency CBC W/DIFF AUTOMATED Routine 03/24/2025 7:18 AM CDT Prostate cancer (CMS/HCC HHS/HCC) Subclavian vein thrombosis, left (CMS/HCC HHS/HCC) Paroxysmal atrial fibrillation (CMS/HCC HHS/HCC) Coronary artery disease involving mcgrath coronary artery of mcgrath heart without angina pectoris Cardiac pacemaker in situ EMMANUEL on CPAP Multiple thyroid nodules Dyslipidemia History of CVA with residual deficit Abdominal aortic aneurysm (AAA) without rupture, unspecified part Urinary frequency USV AORTA ILIAC IVC DUPLEX COMP Routine 02/11/2025 8:12 AM CDT AAA (abdominal aortic aneurysm) COLONOSCOPY Routine 03/01/2019 12:57 PM CDT from Last 3 Months or Most Recently Relevant to Health Maintenance Results * XR PAIN CLINIC C-ARM (04/21/2025 11:26 AM CDT) Narrative Radiology, Technologist - 04/21/2025 11:26 AM CDT This report does not contain a radiologist's interpretation. Please review associated procedure and/or operative report. Lacie Villatoro MD GENERAL IMAGING Final Result * PROTIME/INR, FINGERSTICK (04/21/2025 10:59 AM CDT) INR WHOLE BLOOD 1.00 [facility] 04/21/2025 10:5 9 AM CDT James Pickett MD LABORATORY Final Result [facility] [address] [address], [id number] * (ABNORMAL) VITAMIN B12 / FOLATE (03/24/2025 7:18 AM CDT) VITAMIN B12 S/P/B 228(L) 254 - 1,320 PG/ML 03/24/2025 12:37 PM CDT [facility] FOLATE 13.5 3.1 - 17.5 NG/ML 03/24/2025 12:37 PM CDT [facility] 03/24/2025 7:18 AM CDT us Saul Trevino MD LABORATORY Final Result Performing Organization Address City/[facility]/ZIP Co de Phone Number [facility] [address] [place] [address], [place] [phone] * TSH W/REFLEX (03/24/2025 7:18 AM CDT) TSH 1.420 0.358 - 3.74 uIU/ML 03/24/2025 8:58 AM CDT [facility] Comment: HIGH DOSES OF BIOTIN MAY INTERFERE WITH THIS TEST RESULT. CORRELATION TO CLINICAL HISTORY AND PRESENTATION RECOMMENDED. FREE T4 NOT INDICATED 03/24/2025 7:18 AM CDT us Saul Trevino MD LABORATORY Final Result Performing Organization Address [facility] Co de Phone Number [facility] [address] [place] [address], [place] [phone] * PROSTATE SPECIFIC ANTIGEN,SCREENING (03/24/2025 7:18 AM CDT) PSA 1.37 <4.00 NG/ML 03/24/2025 12:37 PM CDT [facility] Comment: Test was performed using the Siemens method. Results obtained with other assay methods or kits cannot be used interchangeably with results obtained by the Siemens method. 03/24/2025 7:18 AM CDT us Saul Trevino MD LABORATORY Final Result Performing Organization Address City/[facility] Co de Phone Number [facility] [address] [place] [address], [place] [phone] * (ABNORMAL) COMPREHENSIVE METABOLIC PANEL (03/24/2025 7:18 AM CDT) [facility] GLUCOSE 104(H) 70 - 99 MG/DL 03/24/2025 8:58 AM CDT [facility] BUN 16 7 - 18 MG/DL 03/24/2025 8:58 AM CDT [facility] CREATININE S/P/B 1.20 0.7 - 1.3 MG/DL 03/24/2025 8:58 AM CDT [facility] SODIUM S/P/B 140 136 - 145 MMOL/L 03/24/2025 8:58 AM CDT [facility] POTASSIUM S/P/B 4.4 3.5 - 5.1 MMOL/L 03/24/2025 8:58 AM CDT [facility] CHLORIDE S/P/B 109 97 - 115 MMOL/L 03/24/2025 8:58 AM CDT [facility] CO2 26.5 21 - 32 MMOL/L 03/24/2025 8:58 AM CDT [facility] CALCIUM S/P/B 9.2 8.5 - 10.1 MG/DL 03/24/2025 8:58 AM CDT [facility] BILIRUBIN TOTAL S/P/B 0.7 0.2 - 1.2 MG/DL 03/24/2025 8:58 AM CDT [facility] Comment: THIS ASSAY IS NOT RECOMMENDED FOR PATIENTS UNDERGOING TREATMENT WITH ELTROMBOPAG DUE TO THE POTENTIAL FOR FALSELY ELEVATED RESULTS. TOTAL PROTEIN S/P/B 7.0 6.4 - 8.2 G/DL 03/24/2025 8:58 AM CDT [facility] ALBUMIN S/P/B 3.5 3.4 - 5.0 G/DL 03/24/2025 8:58 AM CDT [facility] AST 19 15 - 37 U/L 03/24/2025 8:58 AM CDT [facility] ALT 27 16 - 60 U/L 03/24/2025 8:58 AM CDT [facility] ALKALINE PHOSPHATASE S/P/B 90 50 - 136 U/L 03/24/2025 8:58 AM CDT [facility] ANION GAP 4.5 2 - 10 MMOL/L 03/24/2025 8:58 AM CDT [facility] BUN CREATININE RATIO 13.3 6 - 26 03/24/2025 8:58 AM CDT [facility] A/G RATIO 1.0 1.0 - 2.0 RATIO 03/24/2025 8:58 AM CDT [facility] GFR ESTIMATE 61(L) >90 ML/MIN/1.7 3 M2 03/24/2025 8:58 AM CDT [facility] Comment: NOTE: eGFR is not calculated for patients <18 years of age or gender unknown. This is an estimated GFR calculation using the new CKD EPI creatinine equation without race and so does not require a correction factor for race. This estimated GFR should not be used for calculating drug doses. 03/24/2025 7:18 AM CDT Saul Trevino MD LABORATORY Final Result [facility] [address] [place] [address], [place] [phone] * LIPID PANEL (03/24/2025 7:18 AM CDT) CHOLESTEROL 134 <200 MG/DL 03/24/2025 8:58 AM CDT [facility] TRIGLYCERIDES 103 <150 MG/DL 03/24/2025 8:58 AM CDT [facility] HDL 53 >40.0 MG/DL 03/24/2025 8:58 AM CDT [facility] LDL (CALCULATED) 60 <100 MG/DL 03/24/20 8:58 AM CDT [facility] Comment:CALCULATED USING THE FRIEDEWALD EQUATION NON HDL CHOLESTEROL 81 <130 MG/DL 03/24 8:58 AM CDT [facility] CHOL/HDL RATIO 2.5 0.0 - 4.5 03/24/2025 8:58 AM CDT [facility] VLDL CALCULATION 21 5 - 55 MG/DL 03/24/2025 8:58 AM CDT [facility] LIPID INTERPRETATION 03/24/2025 8:58 AM CDT [facility] Comment: [facility] CONCENSUS REPORT RECOMMENDATIONS: ADULT CHILD LOW RISK: CHOLESTEROL <200 <170 TRIGLYCERIDE <150 --- HDL >=60 --- LDL <100 <110 BORDERLINE: CHOLESTEROL 200-239 170-199 TRIGLYCERIDE 150-199 --- HDL 40-59 --- LDL 100-159 110-129 HIGH RISK: CHOLESTEROL >=240 >=200 TRIGLYCERIDE >=200 --- HDL <40 --- LDL >=160 >=130 03/24/2025 7:18 AM CDT us Saul Trevino MD LABORATORY Final Result [facility] [address] [place] [address], * (ABNORMAL) CBC W/DIFF AUTOMATED (03/24/2025 7:18 AM CDT) WBC 4.42(L) 4.5 - 11.0 x10'3/uL 03/24/2025 8:01 AM CDT [facility] RBC 4.88 4.70 - 6.10 x10'6/uL 03/24/2025 8:01 AM CDT [facility] HGB 15.3 14.0 - 18.0 G/DL 03/24/2025 8:01 AM CDT [facility] HCT 44.8 43.0 - 54.0 % 03/24/2025 8:01 AM CDT [facility] MCV 91.8 80.0 - 94.0 FL 03/24/2025 8:01 AM CDT [facility] MCH 31.4(H) 27.0 - 31.0 PG 03/24/2025 8:01 AM CDT [facility] MCHC 34.2 32.0 - 36.0 G/DL 03/24/2025 8:01 AM CDT [facility] RDW 12.9 11.5 - 14.5 % 03/24/2025 8:01 AM CDT [facility] PLT 146 130 - 400 x10'3/uL 03/24/2025 8:01 AM CDT [facility] MPV 9.6 9.3 - 12.2 FL 03/24/2025 8:01 AM CDT [facility] DIFFERENTIAL TYPE AUTOMATED DIFFERENTIAL 03/24/2025 8:01 AM T [facility] NEUTROPHILS % 71.5 % 03/24/2025 8:01 AM CDT [facility] LYMPHOCYTES % 16.5 % 03/24/2025 8:01 AM CDT [facility] MONOCYTES % 9.7 % 03/24/2025 8:01 AM CDT [facility] EOSINOPHILS 1.6 % 03/24/2025 8:01 AM T [facility] BASOPHILS 0.5 % 03/24/2025 8:01 AM CDT [facility] IMMATURE GRANS % 0.2 % 03/24/20 8:01 AM CDT [facility] ABS. NEUTROPHILS 3.16 1.80 - 7.70 x10'3/uL 03/24/2025 8:01 AM CDT [facility] ABS. LYMPHOCYTES 0.73(L) 1.00 - 4.80 x10'3/uL 03/24/2025 8:01 AM CDT [facility] ABS. MONOCYTES 0.43 0.30 - 0.82 x10'3/uL 03/24/2025 8:01 AM CDT [facility] ABS. EOSINOPHILS 0.07 0.04 - 0.54 x10'3/uL 03/24/2025 8:01 AM CDT [facility] ABS. BASOPHILS 0.02 0.01 - 0.08 x10'3/uL 03/24/2025 8:01 AM CDT [facility] ABS. IMMATURE GRANULOCYTES 0.01 0.00 - 0.49 x10'3/uL 03/24/2025 8:01 AM CDT [facility] 03/24/2025 7:18 AM CDT us Saul Trevino MD LABORATORY Final Result Performing Organization Address City/[facility]/ZIP Co de Phone Number [facility] [address] [place] [address], [place] [phone] * URIC ACID BLOOD (03/24/2025 7:18 AM CDT) URIC ACID 6.1 3.5 - 7.2 MG/DL 03/24/2025 8:58 AM CDT [facility] 03/24/2025 7:18 AM CDT us Saul Trevino MD LABORATORY Final Result [facility] [address] [place] [address], [place] [phone] * USV AORTA ILIAC IVC DUPLEX COMP (02/11/2025 8:12 AM CDT) Anatomical Region Laterality Modality NA Vascular Ultraso und 02/11/2025 7:47 AM CDT Narrative 02/15/2025 6:49 PM CDT [facility] ILIAC DUPLEX VASCULAR LAB Pat.Name: PAZ SIGALA Pat.ID: [id number] .Date: 02/11/2025 Refer.MD: [id number], Victor Manuel Liang Lauren Exam Time: 7:47:00 AM Study Type:JENNIFER VS Aorta IVC Iliac Duplex Uni Height: 70 in Age: 7 1945,79Y Sex: M Sonogrphr: Ayden Lopez RVT Pat. Stat.:Outpatient History / Clinical:known AAA Procedures: Baltazar scale, Color Doppler imaging, Doppler Spectral Analysis Race: W ++++++++++++++++++++++++++++++++++++ SUMMARY: ++++++++++++++++++++++++++++++++++++ Aneurysm evaluation: Maximum abdominal aorta diameter is 3.5 x 3.5 cm, at the mid to distal aorta. Iliac artery diameters are within normal range bilaterally . There is no evident narrowing at the aorta and iliac arteries. CONCLUSION: 3.5 x 3.5 cm abdominal aortic aneurysm. ++++++++++++++++++++++++++++++++++++ MEASUREMENTS: ++++++++++++++++++++++++++++++++++++ DOPPLER Supra AO Supra AO PSV 57 cm/s Supra AO Dim 2 2.6 cm Supra AO Dim 1 2.5 cm Juxta AO Juxta AO PSV 55 cm/s Juxta AO Dim 2 2.1 cm Juxta AO Dim 1 2.1 cm Dist AO Infra AO PSV 23 cm/s Infra AO Dim 2 3.5 cm Infra AO Dim 1 3.5 cm Rt Prox Common Iliac Common Iliac PS 89 cm/s Common Iliac Di 1.2 cm Lt Dist Common Iliac Lt Dist Common 63 cm/s Lt Dist Common 1.1 cm <Electronic Signature> 02/15/2025 06:49 PM Alli Jolley M.D. Procedure Note Alli Jolley MD - 02/15/2025 [facility] ILIAC DUPLEX [facility] Pat.Name: PAZ SIGALA Pat.ID: [id number] St.Date: 02/11/2025 Refer.: [id number], Victor Manuel Liang Lauren Exam Time: 7:47:00 AM Study Type:JENNIFER VS Aorta IVC Iliac Duplex Uni Height: 70 in Age: 7 1945,79Y Sex: M Sonogrphr: Ayden Lopez RVT Pat. Stat.:Outpatient History / Clinical:known AAA Procedures: Baltazar scale, Color Doppler imaging, Doppler Spectral Analysis Race: W ++++++++++++++++++++++++++++++++++++ SUMMARY: ++++++++++++++++++++++++++++++++++++ Aneurysm evaluation: Maximum abdominal aorta diameter is 3.5 x 3.5 cm, at the mid to distal aorta. Iliac artery diameters are within normal range bilaterally . There is no evident narrowing at the aorta and iliac arteries. CONCLUSION: 3.5 x 3.5 cm abdominal aortic aneurysm. ++++++++++++++++++++++++++++++++++++ MEASUREMENTS: ++++++++++++++++++++++++++++++++++++ DOPPLER Supra AO Supra AO PSV 57 cm/s Supra AO Dim 2 2.6 cm Supra AO Dim 1 2.5 cm Juxta AO Juxta AO PSV 55 cm/s Juxta AO Dim 2 2.1 cm Juxta AO Dim 1 2.1 cm Dist AO Infra AO PSV 23 cm/s Infra AO Dim 2 3.5 cm Infra AO Dim 1 3.5 cm Rt Prox Common Iliac Common Iliac PS 89 cm/s Common Iliac Di 1.2 cm Lt Dist Common Iliac Lt Dist Common 63 cm/s Lt Dist Common 1.1 cm <Electronic Signature> 02/15/2025 06:49 PM Alli Jolley M.D. us Natalia Rosas PA-C VASC Final Resul t * Colonoscopy (09/01/2016 12:00 AM STATION ENGINEER) 09/01/2016 09/01/2016 Narrative [facility] TO EPIC CONVERSION - 09/01/2016 12:00 AM STATION ENGINEER Documented hx of procedure Procedure Note Md Generic MD Arpita - 07/05/2018 Documented hx of procedure Generic Conversion Md MURILLO GI PROCEDURE ORDERABLES Final Result Performing Organization Address City/State/[facility] Co de Phone Number [facility] TO EPIC CONVERSION from Last 3 Months or Most Recently Relevant to Health Maintenance Insurance MEDICARE [facility] MEDICARE Advance Directives Documents on File Type Date Recorded Patient Open Pit Quarry Supervisor Expl anation Advance Directives and Living Will 03/15/2020 4:13 PM 04/22/19 POA FOR HEAL TH CARE * Full Code (Latest Code Status on File) Date Activated Date Inactivated Comments 11/01/2021 5:30 PM 11/03/2021 4:15 PM * Full Code Date Activated Date Inactivated Comments 08/22/2020 9:43 PM 08/23/2020 6:24 PM * Full Code Date Activated Date Inactivated Comments 03/10/2020 4:05 PM 03/14/2020 7:16 PM * Full Code Date Activated Date Inactivated Comments 10/21/2018 5:13 PM 10/22/2018 2:30 PM * Full Code Date Activated Date Inactivated Comments 08/03/2018 7:08 PM 08/05/2018 3:31 PM Care Teams Back End Developer Relationship Specialty Start Date End Date Saul Trevino MD PCP - General FAMILY PRACTICE 08/22/20 James Pickett MD [facility] [address] [place] [address] [place] Needle Loom Tender CARDIOVASCULAR DISEASE 03/01/16 Bismark Gerardo MD [address] [place] [address] [address] [place] [address] Consulting Physician PULMONARY DISEASE 06/21/21 Tonio Apodaca MD [address] [place] [id number] Consulting Physician UROLOGY 06/21/21 Faheem Parish MD [address] [facility] [address] [place] [address] GASTROENTEROLOGY 06/21/21 Adithya Augustine DO [address] [facility] [address] [place] [address] Consulting Physician GASTROENTEROLOGY 06/21/21 Andre Hernandez MD [address] [facility] [address] [place], [place] [address] Consulting Physician HEMATOLOGY/ONCOLOGY 06/21/21
--- OUTSIDE RECORDS SUMMARY | 2025-04-22 13:36 | XMS_ITS | Encounter Summary ---
Author Organization [facility] Address [address] [place] [address] Care Team Providers Care Assistant Housekeeping Manager Name Role Phone Saul Trevino MD Primary Care Provider [phone] James Pickett MD Unavailable Bismark Gerardo MD Unavailable Tonio Apodaca MD Unavailable [phone] Faheem Parish MD Unavailable Adithya Augustine DO Unavailable [phone] Andre Hernandez MD Unavailable Encounter Details Date Type Department Care Team (Late st Contact Info) Description 10/08/2022 [employer] Message Enc [facility], [address] [place] [address] Minna Segovia, ANP-BC [facility]. 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 No / Unsure 09/26/2022 1:58 PM PET CARE ASSISTANT documented as of this encounter Functional Status * RETIRED Are you deaf or do you have serious difficulty hearing Answer Date of Assessment Author Status Yes 11/01/2021 6:01 PM PET CARE ASSISTANT Activ e * RETIRED Are you blind or do you have serious difficulty seeing, even when wearing glasses? Answer Date of Assessment Author Status No 11/01/2021 6:01 PM PET CARE ASSISTANT Activ e * Do you have serious difficulty walking or climbing stairs? Answer Date of Assessment Author Status Yes 11/01/2021 6:01 PM PET CARE ASSISTANT Kira Olea R N Active * Do you have difficulty dressing or bathing? Answer Date of Assessment Author Status No 11/01/2021 6:01 PM PET CARE ASSISTANT Kira Olea R N Active * Because of a physical, mental, or emotional condition, do you have difficulty doing errands alone such as visiting a doctor's office or shopping? Answer Date of Assessment Author Status No 11/01/2021 6:01 PM PET CARE ASSISTANT Kira Olea R N Active documented as of this encounter Mental Status * Because of a physical, mental, or emotional condition, do you have serious difficulty concentrating, remembering, or making decisions? Answer Entry Date Author Status No 11/01/2021 6:01 PM PET CARE ASSISTANT Kira Olea R N Active documented in this encounter Plan of Treatment Upcoming Encounters Date Type Department Care Team (Late st Contact Info) Description 06/20/2025 11:35 AM CDT Allied Health/Nurse Visit [facility], [address] [place] [address] James Pickett MD [facility]. [address] [place] [address] 09/20/2025 12:00 PM PET CARE ASSISTANT Office Visit [facility], [facility] [address] [place] [address] James Pickett MD [facility]. [address] [place] [address] 09/27/2025 1:00 PM PET CARE ASSISTANT Office Visit [facility] [address] [place] [address] Saul Trevino MD [address] [place] [address] documented as of this encounter [...] Rule Out 08/06/2023 08/06/2023 08/06/2023 1:16 PM PET CARE ASSISTANT COVID-19 Rule Out 10/12/2023 10/12/2023 10/12/2023 8:48 AM PET CARE ASSISTANT COVID-19 Rule Out 07/27/2024 07/27/2024 07/27/2024 12:12 PM PET CARE ASSISTANT Assessment Noted Time PHQ-9 Depression Total Score: 0 09/26/19 23 2:21 PM PET CARE ASSISTANT documented as of this encounter Care Teams Assistant Housekeeping Manager Relationship Specialty Start Date End Date Saul Trevino MD PCP - General FAMILY PRACTICE 08/22/20 James Pickett MD [facility]. [address] [place] [address] [place] Student Driving Instructor CARDIOVASCULAR DISEASE 03/01/16 Bismark Gerardo MD [address] [facility] [address] [place] [address] Consulting Physician PULMONARY DISEASE 06/21/21 Tonio Apodaca MD [address] [facility] [place] [address] Consulting Physician UROLOGY 06/21/21 Faheem Parish MD [address] [facility] [address] [place] [address] GASTROENTEROLOGY 06/21/21 Adithya Augustine DO [address] [facility] [address] [place] [address] Consulting Physician GASTROENTEROLOGY 06/21/21 Andre Hernandez MD [address] [facility] [address] [place] [address] Consulting Physician HEMATOLOGY/ONCOLOGY 06/21/21 documented as of this encounter
--- OUTSIDE RECORDS SUMMARY | 2025-04-22 13:36 | XMS_ITS | Encounter Summary ---
Author Organization [facility] Address [address] [place] [address] Care Team Providers Care State Manager Name Role Phone Saul Trevino MD Primary Care Provider [phone] James Pickett MD Unavailable Bismark Gerardo MD Unavailable [phone] Tonio Apodaca MD Unavailable [phone] Faheem Parish MD Unavailable [phone] Adithya Augustine DO Unavailable [phone] Andre Hernandez MD Unavailable [phone] Encounter Details Date Type Department Care Team (Latest Contact Info) Description 04/14/2025 Scan HEALTH INFO SRVCS Scanned, Doc Med Group Social History Tobacco Use Types Packs/Day Years [...] Sex Assigned at Male 07/05/2018 8:48 PM JUDICIAL REGISTRAR Legal Sex Male 11:44 PM CDT Gender Identity Male 07/05/2018 8:48 PM JUDICIAL REGISTRAR Sexual Orientation Straight 08/03/2018 2: 21 PM JUDICIAL REGISTRAR Occupation Industry Job Start Date Job End Date 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 Answer Date of Assessment Author Status No 11/01/2021 6:01 PM JUDICIAL REGISTRAR Activ e * Do you have serious difficulty walking or climbing stairs? Answer Date of Assessment Author Status Yes 11/01/2021 6:01 PM JUDICIAL REGISTRAR Kira Olea R N Active * Do you have difficulty dressing or bathing? Answer Date of Assessment Author Status No 11/01/2021 6:01 PM JUDICIAL REGISTRAR Kira Olea R N Active * Because of a physical, mental, or emotional condition, do you have difficulty doing errands alone such as visiting a doctor's office or shopping? Answer Date of Assessment Author Status No 11/01/2021 6:01 PM JUDICIAL REGISTRAR Kira Olea R N Active * Calculated C-SSRS Risk Score (Lifetime/Recent) Answer Date of Assessment Author Status No Risk Indicated 04/21/2025 11:20 AM Nancy Gregory RN Active * [place] Suicide Severity Rating Scale (Screener/Recent Self-Report) Question Answer Date of Assessment Author Status 1. Wish to be (Past 1 Month) No 04/21/2025 11:20 AM Duyen Gregory RN Act messi 2. Non-Specific Active Suicidal Thoughts (Past 1 Month) No 04/21/2025 11:20 AM CDT Duyen Burt RN Act messi 6. Suicidal Behavior (Lifetime) No 04/21/2025 11:20 AM CDT Duyen Burt RN Act messi documented as of this encounter Mental Status * Because of a physical, mental, or emotional condition, do you have serious difficulty concentrating, remembering, or making decisions? Answer Entry Date Author Status No 11/01/2021 6:01 PM JUDICIAL REGISTRAR Kira Olea R N Active documented in this encounter Plan of Treatment Upcoming Encounters Date Type Department Care Team (Late st Contact Info) Description 06/20/2025 11:35 AM CDT Allied Health/Nurse Visit [facility] [address] [place] [address] James Pickett MD [facility]. [address] [place], [place] [address] 09/20/2025 12:00 PM JUDICIAL REGISTRAR Office Visit [facility] [address] [place], [place] [address] James Pickett MD [facility]. [address] [place] [address] 09/27/2025 1:00 PM JUDICIAL REGISTRAR Office [facility] [address] [place] [address] Saul Trevino MD [address] [place] [address] documented as of this encounter [...] Total Score: 0 09/26/19 23 2:21 PM JUDICIAL REGISTRAR documented as of this encounter Care Teams State Manager Relationship Specialty Start Date End Date Saul Trevino MD PCP - General FAMILY PRACTICE 08/22/20 James Pickett MD [facility]. [facility] [address] [place] [address] [place] Col[employer] Pointer CARDIOVASCULAR DISEASE 03/01/16 Bismark Gerardo MD [facility] [address] [place] [address] Consulting Physician PULMONARY DISEASE 06/21/21 Tonio Apodaca MD [address] [facility] [place] [address] Consulting Physician UROLOGY 06/21/21 Faheem Parish MD [address] [facility] [address] [place] [address] GASTROENTEROLOGY 06/21/21 Adithya Augustine DO [address] [facility] [address] [place] [address] Consulting Physician GASTROENTEROLOGY 06/21/21 Andre Henrandez MD [address] [facility] [address] [place] [address] Consulting Physician HEMATOLOGY/ONCOLOGY 06/21/21 documented as of this encounter
--- OUTSIDE RECORDS SUMMARY | 2025-04-22 13:37 | XMS_ITS | Clinical Summary ---
Author Organization [facility] [employer] Address [address] [place] [address] Care Team Providers Care Reinsurance Claims Analyst Name Role Phone Alicja Horne MD Unavailable [phone] Tonio Apodaca MD Unavailable [phone] Andre Hernandez MD Unavailable [phone] Saul Trevino MD Primary Care Provider [phone] Bismark Gerardo MD Unavailable Allergies Active Allergy Reactions Criticality Noted Date Comments Ciprofloxacin Swelling,Unknown High 05/14/2020 Lips swelled Medications pantoprazole DR (PROTONIX) 20 mg EC tablet 9 Active nitroglycerin (NITROSTAT) 0.[address] 1 tablet (0.4 mg total) under the tongue every 5 (five) minutes as needed Active acetaminophen (TYLENOL) 500 mg tablet Take 1 tablet (500 mg total) by mouth every 6 (six) hours as needed Active brimonidine (ALPHAGAN) 0.2 % ophthalmic solution Administer 1 drop into affected eye(s) 3 (three) times a day Active cholecalciferol (VITAMIN D-3) 5,000 unit tablet Take 1 tablet (5,000 Units total) by mouth daily Active lisinopriL (PRINIVIL,ZESTR IL) 10 mg tablet Take 1 tablet (10 mg total) by mouth daily Active Xelpros 0.005 % drops, emulsion INSTILL 1 DROP DAILY IN EACH EYE AT BEDTIME 2 Active albuterol HFA (PROVENTIL HFA,VENTOLIN HFA,PROAIR HFA) 90 mcg/actuation inhaler Inhale 2 puffs every 4 (four) hours as needed 1 Active warfarin (COUMADIN) 5 mg tablet Take 1 tablet (5 mg total) by mouth 0 Active mupirocin (BACTROBAN) 2 % ointment APPLY TO AFFECTED AREA THREE TIMES DAILY UNTIL HEALED. 3 Active gentamicin (GARAMYCIN) 0.1 % ointment APPLY TO HEALING AREA TWICE A DAY FOR 3 WEEKS. MAY MIX WITH VASELINE 3 Active rosuvastatin (CRESTOR) 20 mg tablet Take 0.5 tablets (10 mg total) by mouth 4 Active Active Problems Problem Noted Date Diagnosed Date Epistaxis 06/24/2022 Deviated nasal septum 06/24/2022 Chronic anticoagulation 06/24/2022 Acute swimmer's ear of right side 06/19/2020 Paroxysmal atrial fibrillation 04/06/2019 Hemiparesis affecting right side as late effect of stroke 04/06/2019 Pseudophakia of both eyes 02/09/2019 HTN (hypertension) 01/22/2019 Stroke (cerebrum) 01/22/2019 Glaucoma suspect of both eyes 01/22/2019 Pacemaker 01/22/2019 CAD (coronary artery disease) 01/22/2019 EMMANUEL (obstructive sleep apnea) 01/22/2019 GERD (gastroesophageal reflux disease) 9 Prostate cancer Hx of radiation therapy Encounters Date Type Department Care Team Description 03/16/2025 11:15 AM CDT Office Visit [facility] Sleep Medicine at [address] [place] [address] Dhara Gramajo MD EMMANUEL (obstructive sleep apnea) (Primary Dx); REM sleep behavior disorder; Obesity, unspecified class, unspecified obesity type, unspecified whether serious comorbidity present 02/21/2025 10:40 AM CDT Office Visit [facility]) - [facility] [address] [facility] Medical Office Building [address] [place] [address] Nnacie Vital MD Obstructive sleep apnea (Primary Dx); Intolerance of continuous positive airway pressure (CPAP) ventilation from Last 3 Months Surgical History Surgery Date Site/Laterality Comments CHOLECYSTECTOMY INSERT / REPLACE / REMOVE PACEMAKER PROSTATECTOMY EYE SURGERY SIGMOIDOSCOPY 06/01/2021 - 07/01/2021 CARPAL TUNNEL RELEASE 06/01/2021 - 07/01/2021 Left CARDIAC CATHETERIZATION 07/02/2018 - 07/31/2018 Medical History Medical History Date Comments Arthritis CHF (congestive heart failure) (HCC) Coronary artery disease Sleep apnea Stroke (HCC) Hypertension Prostate cancer (HCC) Hyperlipidemia GERD (gastroesophageal reflux disease) Cataract Heart disease Cataracts, bilateral Hx of radiation therapy HL (hearing loss) Dizziness Tinnitus Deep vein thrombosis (HCC) Family History Medical History Relation Name Comments Cancer Father Cancer Mother Cancer Other Relation Name Status Comments Father Mother Other Social History Tobacco Use Types Packs/Day Years Used Date Smoking Tobacco: Former Cigarettes 1 7 Smokeless Tobacco: Never Tobacco Cessation:Counseling Given: Not Answered Comments:quit 50 years ago Alcohol Use Standard Drinks/Week Comments Yes 0 (1 standard drink = 0.6 oz pur e alcohol) PHQ-2 Answer Date Recorded PHQ-2 Score 0 04/22/2019 Sex and Gender Information Value Date Recorded Sex Assigned at Not on file 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 Gender Identity Not on file Sexual Orientation Not on file Obstetrics History Last Filed Vital Signs Vital Sign Reading Time Taken Comments Blood Pressure 152/87 03/16/2025 11:30 AM CDT Pulse 70 03/16/2025 11:30 AM CDT Temperature 36.9 C (98.5 F) 06/19/2020 10:47 AM CDT Respiratory Rate 18 11/25/2022 10:01 AM CDT Oxygen Saturation 96% 03/16/2025 11:30 AM CDT Inhaled Oxygen Concentration - - Weight 96.7 kg (213 lb 3.2 oz) 03/16/2025 11:30 AM CDT Height 177.8 cm (5' 10) 03/16/2025 11:30 AM CDT Body Mass Index 30.59 03/16/2025 11:30 AM CDT Plan of Treatment Upcoming Encounters Date Type Department Care Team (Latest Contact Info) Description 06/07/2025 11:30 AM CDT Hospital Encounter [facility] Operating Room [address] [place] [address] [place] [address] [facility] [address] [place] [address] 06/07/2025 11:30 AM CDT - 06/07/2025 12:00 PM CDT Surgery [facility] Operating Room [address] [place] [address] [place] [address] [facility] [address] [place] [address] DRUG INDUCED SLEEP ENDOSCOPY Scheduled Procedures Name Priority Associated Diagnoses Date/Ti me DRUG INDUCED SLEEP ENDOSCOPY EVAL FLEX DIAG EMMANUEL (obstructive sleep apnea) 06/07/2025 11:30 AM CDT Health Maintenance Due Date Last Done Comments Fall Risk Assessment 1945 Hepatitis B Screening 1963 Well Visit 65+ 2010 Depression Screening 01/23/2020 01/22/2019 Covid-19 Vaccine (2023-2 5 season) 2024 02/09/2022, 04/26/2021, 10/23/2020, Additional history exists Influenza Vaccine (#1) 2025 , 06/01/2022, 06/14/2021, Additional history exists DTaP/Tdap/Td Vaccine (3 - Td or Tdap) 02/28/2031 02/28/2021, 08/22/2020 Pneumococcal vaccine 65+ Completed 015, 06/24/2013, 06/24/2013 Zoster Vaccine Completed 07/10/2018, 05/08/2018 Abdominal Aortic Aneurysm (A AA) Screen Completed 06/30/2024, 02/11/2024, 01/10/2022, Additional history exists Procedures Procedure Name Priority Date/Time Associated Diagnosis Comments CT ABDOMEN PELVIS W CONTRAST Routine 12/09/2012 11:36 AM CDT from Last 3 Months or Most Recently Relevant to Health Maintenance Results * CT Abdomen Pelvis W Contrast (12/09/2012 11:36 AM CDT) Anatomical Region Laterality Modality Body N/A Computed Tomogra phy 12/09/2012 11:3 6 AM CDT Impressions 12/09/2012 1:40 PM CDT 1. No acute inflammatory change of the abdomen or pelvis. No inflammatory change of bowel obstruction. 2. No nephrolithiasis. 3. No CT findings to explain left lower quadrant pain. 4. Moderate osteoarthritis of the hips. Mild multilevel degenerative change lumbar spine. THIS IS AN ELECTRONICALLY VERIFIED REPORT 12/09/2012 1:35 PM: Fabrice Schwarz M.D. Fabrice Schwarz M.D. MJ:jeimy 01:35 PM 01:35 PM [EOD] Narrative 12/09/2012 1:40 PM CDT EXAMINATION: CT abdomen and pelvis with IV contrast HISTORY: Left lower quadrant pain COMPARISON: November 17, 2012 and May 19, 2010 TECHNIQUE: CT images of the abdomen and pelvis were obtained after IV administration of 100 mL of Omnipaque 350 given at the right hand IV site. FINDINGS: Limited view through the base of lungs demonstrates dependent atelectasis. The liver demonstrates a normal appearance. Prior cholecystectomy. Pancreas is without inflammatory change. Occasional calcified granuloma of the spleen. Adrenal glands and kidneys are unremarkable. There is atherosclerotic change of the abdominal aorta. No aneurysmal dilatation. There is no free fluid or inflammatory change. Pelvic structures demonstrate no free fluid or inflammatory change. Bladder and prostate are unremarkable. Bowel is without inflammatory change or obstruction. Appendix appears normal. Osseous structures demonstrate moderate osteoarthritis of the hips. Mild degenerate endplate change lumbar spine. Procedure Note Provider, MD Skyler - 01/16/2021 EXAMINATION: CT abdomen and pelvis with IV contrast HISTORY: Left lower quadrant pain COMPARISON: November 17, 2012 and May 19, 2010 TECHNIQUE: CT images of the abdomen and pelvis were obtained after IV administration of 100 mL of Omnipaque 350 given at the right hand IVsite. FINDINGS: Limited view through the base of lungs demonstrates dependent atelectasis. The liver demonstrates a normal appearance. Prior cholecystectomy.Pancreas is without inflammatory change. Occasional calcified granuloma of thespleen. Adrenal glands and kidneys are unremarkable. There is atheroscleroticchange of the abdominal aorta. No aneurysmal dilatation. There is no free fluidor inflammatory change. Pelvic structures demonstrate no free fluid or inflammatory change.Bladder and prostate are unremarkable. Bowel is without inflammatory change or obstruction. Appendix appears normal. Osseous structures demonstrate moderate osteoarthritis of the hips. Mild degenerate endplate changelumbar spine. IMPRESSION: 1. No acute inflammatory change of the abdomen or pelvis. Noinflammatory change of bowel obstruction. 2. No nephrolithiasis. 3. No CT findings to explain left lower quadrant pain. 4. Moderate osteoarthritis of the hips. Mild multilevel degenerativechange lumbar spine. THIS IS AN ELECTRONICALLY VERIFIED REPORT 12/09/2012 1:35 PM: Fabrice Schwarz M.D. Fabrice Schwarz M.D. MJ:jeimy 01:35 PM 01:35 PM [EOD] Vania Reyes CUTTER MACHINE TENDER IMG CT PROCEDURES Final Resu lt from Last 3 Months or Most Recently Relevant to Health Maintenance Insurance MEDICARE [facility] MEDICARE SUPPLEMENT MEDICARE BLUE CROSS MEDICARE SUPPLEMENT MEDICARE BLUE [facility] Advance Directives For more information, please contact: [phone] * Full Code (Latest Code Status on File) Date Activated Date Inactivated Comments 01/22/2019 2:33 AM 01/22/2019 11:18 PM Care Teams Reinsurance Claims Analyst Relationship Specialty Start Date End Date Saul Trevino MD [address] [place] [address] PCP - General Family Medicine 01/18/22 Alicja Horne MD Radiation Oncologist Radiation Oncology 10/02/21 Tonio Apodaca MD [address] [address] Surgeon Urology 10/02/21 Andre Hernandez MD [address] [place] [address] Medical Oncologist Hematology and Oncology 10/02/21 Bismark Gerardo MD [address] [address] Referring Physician Pulmonary Disease 01/25/22
--- OUTSIDE RECORDS SUMMARY | 2025-04-22 13:37 | XMS_ITS | Encounter Summary ---
Author Organization [facility] Address [address] [place] [address] Care Team Providers Care Ambulatory Nurse Name Role Phone Saul Trevino MD Primary Care Provider [phone] Saul Trevino MD Primary Care Provider [phone] James Pickett MD Unavailable Bismark Gerardo MD Unavailable [phone] Tonio Apodaca MD Unavailable [phone] Faheem Parish MD Unavailable [phone] Adithya Augustine DO Unavailable [phone] Andre Hernandez MD Unavailable [phone] Encounter Details Date Type Department Care Team (Latest Contact Info) Description 07/07/2018 Abstract [facility] Obdulio Yanez MD Social History Tobacco Use Types Packs/Day Years Used Date Smoking Tobacco: Former Cigarettes Q uit: 03/27/1976 Smokeless Tobacco: Never Alcohol Use Standard Drinks/Week Comments Yes 0 (1 standard drink = 0.6 oz pur e alcohol) socially Education Answer Date Recorded What is the highest level of school you have completed or the highest degree you have received? 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 [address] [place] [address] 09/20/2025 12:00 PM QUALITY TESTER Office Visit [facility], [facility] [address] [place] [address] James Pickett MD [facility]. [address] [place] [address] 09/27/2025 1:00 PM QUALITY TESTER Office Visit [facility] [address] [place] [address] Saul Trevino MD [address] [place] [address] documented as of this encounter Visit Diagnoses Not on filedocumented in this encounter Additional Health Concerns Infection Onset Date Last Indicated Resolved Time COVID-19 Rule Out 03/08/2020 03/08/2020 03/08/2020 12:47 PM CDT COVID-19 Rule Out 11/05/2020 11/05/2020 11/06/2020 5:31 PM QUALITY TESTER COVID-19 Rule Out 03/12/2021 03/12/2021 03/13/2021 1:44 PM CDT COVID-19 Rule Out 05/20/2021 05/20/2021 05/21/2021 11:12 AM CDT COVID-19 Rule Out 08/06/2023 08/06/2023 08/06/2023 1:16 PM QUALITY TESTER COVID-19 Rule Out 10/12/2023 10/12/2023 10/12/2023 8:48 AM QUALITY TESTER COVID-19 Rule Out 07/27/2024 07/27/2024 07/27/2024 12:12 PM QUALITY TESTER documented as of this encounter Care Teams Ambulatory Nurse Relationship Specialty Start Date End Date Saul Trevino MD PCP - General FAMILY PRACTICE 03/01/16 08/21/20 Saul Trevino MD PCP - General FAMILY PRACTICE 08/22/20 James Pickett MD [facility]. [address] [place] [address] [place] Air Carrier Maintenance Inspector CARDIOVASCULAR DISEASE 03/01/16 Bismark Gerardo MD [address] [facility] [address] [place] [address] Consulting Physician PULMONARY DISEASE 06/21/21 Tonio Apodaca MD [address] [facility]. [place], [place] [address] Consulting Physician UROLOGY 06/21/21 Faheem Parish MD [address] [facility] [address] [place], [place] [address] GASTROENTEROLOGY 06/21/21 Adithya Augustine DO [address] [facility] [address] [place] [address] Consulting Physician GASTROENTEROLOGY 06/21/21 Andre Hernandez MD [address] [facility] [address] [place] [address] Consulting Physician HEMATOLOGY/ONCOLOGY 06/21/21 documented as of this encounter
--- OUTSIDE RECORDS SUMMARY | 2025-04-22 13:37 | XMS_ITS | Encounter Summary ---
Author Organization [facility] Address [address] [place] [address] Care Team Providers Care Bundles Hanger Name Role Phone Saul Trevino MD Primary Care Provider [phone] Saul Trevino MD Primary Care Provider [phone] James Pickett MD Unavailable Bismark Gerardo MD Unavailable [phone] Tonio Apodaca MD Unavailable [phone] Faheem Parish MD Unavailable [phone] Adithya Augustine DO Unavailable [phone] Andre Hernandez MD Unavailable [phone] Encounter Details Date Type Department Care Team (Late st Contact Info) Description 06/02/2019 MyChart Message Enc MYCHART DEPARTMENT [address] [place] [id number] [facility] Provider Lab results Social History Tobacco Use Types Packs/Day Years Used Date Smoking Tobacco: Former Cigarettes 1 10 0 03/27/1966 - 03/27/1976 Smokeless Tobacco: Never Alcohol Use [...] Sex Assigned at Male 07/05/2018 8:48 PM STRETCHER AND DRIER Legal Sex Male 11:44 PM CDT Gender Identity Male 07/05/2018 8:48 PM STRETCHER AND DRIER Sexual Orientation Straight 08/03/2018 2: 21 PM STRETCHER AND DRIER Occupation Industry Job Start Date Job End Date 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 Answer Date of Assessment Author Status No 10/22/2018 11:06 AM STRETCHER AND DRIER Acti ve * Do you have serious difficulty walking or climbing stairs? Answer Date of Assessment Author Status No 10/22/2018 11:06 AM Chel Espinoza RN Active * Do you have difficulty dressing or bathing? Answer Date of Assessment Author Status No 10/22/2018 11:06 AM Chel Espinoza RN Active * Because of a physical, mental, or emotional condition, do you have difficulty doing errands alone such as visiting a doctor's office or shopping? Answer Date of Assessment Author Status No 10/22/2018 11:06 AM Chel Espinoza RN Active documented as of this encounter Mental Status * Because of a physical, mental, or emotional condition, do you have serious difficulty concentrating, remembering, or making decisions? Answer Entry Date Author Status No 10/22/2018 11:06 AM Chel Espinoza RN Active documented in this encounter Plan of Treatment Upcoming Encounters Date Type Department Care Team (Late st Contact Info) Description 06/20/2025 11:35 AM CDT Allied Health/Nurse Visit [facility] THREE [facility], [facility] [address] [place] [address] James Pickett MD Three [facility]. [facility] [address] [place] [address] 09/20/2025 12:00 PM STRETCHER AND DRIER Office Visit [facility] THREE [facility], [place] [address] [place], [place] [id number] James Pickett MD Three [facility]. [place] [address] [place] [address] 09/27/2025 1:00 PM STRETCHER AND DRIER Office Visit [facility] [address] [place] [address] Saul Trevino MD [address] [place] [address] documented as of this encounter Visit Diagnoses Not on filedocumented in this encounter Additional Health Concerns Infection Onset Date Last Indicated Resolved Time COVID-19 Rule Out 03/08/2020 03/08/2020 03/08/2020 12:47 PM CDT COVID-19 Rule Out 11/05/2020 11/05/2020 11/06/2020 5:31 PM STRETCHER AND DRIER COVID-19 Rule Out 03/12/2021 03/12/2021 03/13/2021 1:44 PM CDT COVID-19 Rule Out 05/20/2021 05/20/2021 05/21/2021 11:12 AM CDT COVID-19 Rule Out 08/06/2023 08/06/2023 08/06/2023 1:16 PM STRETCHER AND DRIER COVID-19 Rule Out 10/12/2023 10/12/2023 10/12/2023 8:48 AM STRETCHER AND DRIER COVID-19 Rule Out 07/27/2024 07/27/2024 07/27/2024 12:12 PM STRETCHER AND DRIER documented as of this encounter Care Teams Bundles Hanger Relationship Specialty Start Date End Date Saul Trevino MD PCP - General FAMILY PRACTICE 03/01/16 08/21/20 Saul Trevino MD PCP - General FAMILY PRACTICE 08/22/20 James Pickett MD Three [facility]. [address] [place] [address] Perley Wood Milling Machine Tender CARDIOVASCULAR DISEASE 03/01/16 Bismark Gerardo MD 3rd [facility] [address] [place] [address] Consulting Physician PULMONARY DISEASE 06/21/21 Tonio Apodaca MD [address] [place] [address] Consulting Physician UROLOGY 06/21/21 Faheem Parish MD [address] [facility] [address] [place] [address] GASTROENTEROLOGY 06/21/21 Adithya Augustine DO [address] [facility] [address] [place] [address] Consulting Physician GASTROENTEROLOGY 06/21/21 Andre Hernandez MD [address] [facility] [address] [place], [place] [address] Consulting Physician HEMATOLOGY/ONCOLOGY 06/21/21 documented as of this encounter
--- OUTSIDE RECORDS SUMMARY | 2025-04-22 13:37 | XMS_ITS | Encounter Summary ---
Author Organization [facility] Address [address] [place] [address] Care Team Providers Care Alarm Field Technician Name Role Phone Saul Trevino MD Primary Care Provider [phone] Saul Trevino MD Primary Care Provider James Pickett MD Unavailable Bismark Gerardo MD Unavailable [phone] Tonio Apodaca MD Unavailable Faheem Parish MD Unavailable Adithya Augustine DO Unavailable [phone] Andre Hernandez MD Unavailable Encounter Details Date Type Department Care Team (Late st Contact Info) Description 05/04/2020 Breathometer Message Enc [facility] [place] Three [facility], [place] [address] [place], [place] [id number] Minna Segovia, [place]- Three [facility]. 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 No / Unsure 05/07/2020 8:08 PM CDT documented as of this encounter Functional Status * RETIRED Are you deaf or do you have serious difficulty hearing Answer Date of Assessment Author Status No 03/10/2020 7:56 PM CDT Activ e * RETIRED Are you blind or do you have serious difficulty seeing, even when wearing glasses? Answer Date of Assessment Author Status No 03/10/2020 7:56 PM CDT Activ e * Do you have serious difficulty walking or climbing stairs? Answer Date of Assessment Author Status No 03/10/2020 7:56 PM CDT Sania Aviles RN Active * Do you have difficulty dressing or bathing? Answer Date of Assessment Author Status No 03/10/2020 7:56 PM ANDERSONT Sania Aviles RN Active * Because of a physical, mental, or emotional condition, do you have difficulty doing errands alone such as visiting a doctor's office or shopping? Answer Date of Assessment Author Status No 03/10/2020 7:56 PM ANDERSONT Saina Aviles RN Active documented as of this encounter Mental Status * Because of a physical, mental, or emotional condition, do you have serious difficulty concentrating, remembering, or making decisions? Answer Entry Date Author Status No 03/10/2020 7:56 PM Sania Mejia RN Active documented in this encounter Plan of Treatment Upcoming Encounters Date Type Department Care Team (Late st Contact Info) Description 06/20/2025 11:35 AM CDT Allied Health/Nurse Visit [facility] THREE [facility], [place] [address] [place] [address] James Pickett MD Three [facility]. [place] [address] [place], [place] [address] 09/20/2025 12:00 PM CUSTOMER ENGINEER Office Visit [facility] THREE [facility], [place] [address] [place] [address] James Pickett MD Three [facility]. [place] [address] [place], [place] [address] 09/27/2025 1:00 PM CUSTOMER ENGINEER Office Visit [facility] [address] [place] [id number] Saul Trevino MD [address] [place] [address] documented as of this encounter Visit Diagnoses Not on filedocumented in this encounter Additional Health Concerns Infection Onset Date Last Indicated Resolved Time COVID-19 Rule Out 11/05/2020 11/05/2020 11/06/2020 5:31 PM CUSTOMER ENGINEER COVID-19 Rule Out 03/12/2021 03/12/2021 03/13/2021 1:44 PM CDT COVID-19 Rule Out 05/20/2021 05/20/2021 05/21/2021 11:12 AM CDT COVID-19 Rule Out 08/06/2023 08/06/2023 08/06/2023 1:16 PM CUSTOMER ENGINEER COVID-19 Rule Out 10/12/2023 10/12/2023 10/12/2023 8:48 AM CUSTOMER ENGINEER COVID-19 Rule Out 07/27/2024 07/27/2024 07/27/2024 12:12 PM CUSTOMER ENGINEER documented as of this encounter Care Teams Alarm Field Technician Relationship Specialty Start Date End Date Saul Trevino MD PCP - General FAMILY PRACTICE 03/01/16 08/21/20 Saul Trevino MD PCP - General [facility] 08/22/20 James Pickett MD Three [facility]. [facility] [address] [place] [address] Salcha Doormaker CARDIOVASCULAR DISEASE 03/01/16 Bismark Gerardo MD 3rd [facility] [address] [address] [place] [address] Consulting Physician PULMONARY DISEASE 06/21/21 Tonio Apodaca MD [address] [facility] [place] [address] Consulting Physician UROLOGY 06/21/21 Faheem Parish MD [address] [facility] [address] [place] [address] GASTROENTEROLOGY 06/21/21 Adithya Augustine DO [address] [facility] [address] [place] [address] Consulting Physician GASTROENTEROLOGY 06/21/21 Andre Hernandez MD [address] [facility] [address] [place] [address] Consulting Physician HEMATOLOGY/ONCOLOGY 06/21/21 documented as of this encounter
--- OUTSIDE RECORDS SUMMARY | 2025-04-22 13:37 | XMS_ITS | Encounter Summary ---
Author Organization [facility] Address [address] [place] [address] Care Team Providers Care Air Quality Chemist Name Role Phone Saul Trevino MD Primary Care Provider James Pickett MD Unavailable Bismark Gerardo MD Unavailable Tonio Apodaca MD Unavailable Faheem Parish MD Unavailable [phone] Adithya Augustine DO Unavailable [phone] Andre Hernandez MD Unavailable [phone] Encounter Details Date Type Department Care Team (Late st Contact Info) Description 05/14/2023 [employer] Message Enc [facility] THREE [facility], [place] [address] [place] [address] Minna Segovia, ANP-BC Three [facility]. 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 Answer Date of Assessment Author Status No 11/01/2021 6:01 PM COMPUTER LAB PARA PROFESSIONAL Activ e * Do you have serious difficulty walking or climbing stairs? Answer Date of Assessment Author Status Yes 11/01/2021 6:01 PM COMPUTER LAB PARA PROFESSIONAL Kira Olea R N Active * Do you have difficulty dressing or bathing? Answer Date of Assessment Author Status No 11/01/2021 6:01 PM COMPUTER LAB PARA PROFESSIONAL Kira Olea R N Active * Because of a physical, mental, or emotional condition, do you have difficulty doing errands alone such as visiting a doctor's office or shopping? Answer Date of Assessment Author Status No 11/01/2021 6:01 PM COMPUTER LAB PARA PROFESSIONAL Kira Olea R N Active documented as of this encounter Mental Status * Because of a physical, mental, or emotional condition, do you have serious difficulty concentrating, remembering, or making decisions? Answer Entry Date Author Status No 11/01/2021 6:01 PM COMPUTER LAB PARA PROFESSIONAL Kira Olea R N Active documented in this encounter Plan of Treatment Upcoming Encounters Date Type Department Care Team (Late st Contact Info) Description 06/20/2025 11:35 AM CDT Allied Health/Nurse Visit [facility] THREE [facility], [place] [address] [place], [place] [id number] James Pickett MD Three [facility]. [place] [address] [place], [place] [id number] 09/20/2025 12:00 PM COMPUTER LAB PARA PROFESSIONAL Office Visit [facility], [place] [address] [place], [place] [id number] James Pickett MD Three [facility]. [place] [address] [place], [place] [id number] 09/27/2025 1:00 PM COMPUTER LAB PARA PROFESSIONAL Office Visit [facility] [address] [place] [address] Saul Trevino MD [address] [place] [address] documented as of this encounter [...] Rule Out 08/06/2023 08/06/2023 08/06/2023 1:16 PM COMPUTER LAB PARA PROFESSIONAL COVID-19 Rule Out 10/12/2023 10/12/2023 10/12/2023 8:48 AM COMPUTER LAB PARA PROFESSIONAL COVID-19 Rule Out 07/27/2024 07/27/2024 07/27/2024 12:12 PM COMPUTER LAB PARA PROFESSIONAL Assessment Noted Time PHQ-9 Depression Total Score: 0 09/26/19 23 2:21 PM COMPUTER LAB PARA PROFESSIONAL documented as of this encounter Care Teams Air Quality Chemist Relationship Specialty Start Date End Date Saul Trevino MD PCP - General FAMILY PRACTICE 08/22/20 James Pickett MD Three [facility]. [facility] [address] [place] [address] [place] Fiscal Services Manager CARDIOVASCULAR DISEASE 03/01/16 Bismark Gerardo MD [address] [facility] [address] [place] [address] Consulting Physician PULMONARY DISEASE 06/21/21 Tonio Apodaca MD 3 [facility] [place] [address] Consulting Physician UROLOGY 06/21/21 Faheem Parish MD [address] [facility] [address] [place] [address] GASTROENTEROLOGY 06/21/21 Adithya Augustine DO [address] [facility] [address] [place] [address] Consulting Physician GASTROENTEROLOGY 06/21/21 Andre Hernandez MD [address] [facility] [address] [place] [address] Consulting Physician HEMATOLOGY/ONCOLOGY 06/21/21 documented as of this encounter
--- OUTSIDE RECORDS SUMMARY | 2025-04-22 13:37 | XMS_ITS | Encounter Summary ---
Author Organization [facility] Address [address] [place] [address] Care Team Providers Care Rehabilitation Caseworker Name Role Phone Saul Trevino MD Primary Care Provider [phone] Saul Trevino MD Primary Care Provider [phone] James Pickett MD Unavailable Bismark Gerardo MD Unavailable [phone] Tonio Apodaca MD Unavailable [phone] Faheem Parish MD Unavailable [phone] Adithya Augustine DO Unavailable [phone] Andre Hernandez MD Unavailable [phone] Encounter Details Date Type Department Care Team (Late st Contact Info) Description 04/21/2018 Abstract [facility] Conversion , Generic Conversion, Social History Tobacco Use Types Packs/Day Years Used Date Smoking Tobacco: Former Cigarettes Q uit: 03/27/1976 Smokeless Tobacco: Never Alcohol Use Standard Drinks/Week Comments Yes 0 (1 standard drink = 0.6 oz pur e alcohol) socially Sex and Gender Information Value Date Recorded Sex Assigned at Male 07/05/2018 8:48 PM INSPECTOR MATERIALS AND PROCESSES Legal Sex Male 11:44 PM CDT Gender Identity Male 07/05/2018 8:48 PM INSPECTOR MATERIALS AND PROCESSES Sexual Orientation Straight 08/03/2018 2: 21 PM INSPECTOR MATERIALS AND PROCESSES Occupation Industry Job Start Date Job End Date Not on file Not on file Not on file Not on file documented as of this encounter Plan of Treatment Upcoming Encounters Date Type Department Care Team (Late st Contact Info) Description 06/20/2025 11:35 AM CDT Allied Health/Nurse Visit [facility] THREE [facility], [facility] [address] [place] [address] James Pickett MD Three [facility]. [facility] [address] [place] [address] 09/20/2025 12:00 PM INSPECTOR MATERIALS AND PROCESSES Office Visit [facility] THREE [facility], [facility] [address] [place] [address] James Pickett MD Three [facility]. [facility] [address] [place], [place] [address] 09/27/2025 1:00 PM INSPECTOR MATERIALS AND PROCESSES Office Visit [facility] [address] [place] [address] Saul Trevino MD [address] [place] [address] documented as of this encounter Visit Diagnoses Not on filedocumented in this encounter Additional Health Concerns Infection Onset Date Last Indicated Resolved Time COVID-19 Rule Out 03/08/2020 03/08/2020 03/08/2020 12:47 PM CDT COVID-19 Rule Out 11/05/2020 11/05/2020 11/06/2020 5:31 PM INSPECTOR MATERIALS AND PROCESSES COVID-19 Rule Out 03/12/2021 03/12/2021 03/13/2021 1:44 PM CDT COVID-19 Rule Out 05/20/2021 05/20/2021 05/21/2021 11:12 AM CDT COVID-19 Rule Out 08/06/2023 08/06/202308/06/2023 1:16 PM INSPECTOR MATERIALS AND PROCESSES COVID-19 Rule Out 10/12/2023 10/12/2023 10/12/2023 8:48 AM INSPECTOR MATERIALS AND PROCESSES COVID-19 Rule Out 07/27/2024 07/27/2024 07/27/2024 12:12 PM INSPECTOR MATERIALS AND PROCESSES documented as of this encounter Care Teams Rehabilitation Caseworker Relationship Specialty Start Date End Date Saul Trevino MD PCP - General FAMILY PRACTICE 03/01/16 08/21/20 Saul Trevino MD PCP - General FAMILY PRACTICE 08/22/20 James Pickett MD Three [facility]. [address] [place] [address] [place] [employer] Superintendent CARDIOVASCULAR DISEASE 03/01/16 Bismark Gerardo MD [address] [facility] [address] [place] [address] Consulting Physician PULMONARY DISEASE 06/21/21 Tonio Apodaca MD 3 [facility] [place] [address] Consulting Physician UROLOGY 06/21/21 Faheem Parish MD [address] [facility] [address] [place] [address] GASTROENTEROLOGY 06/21/21 Adithya Augustine DO [address] [facility] [address] [place] [address] Consulting Physician GASTROENTEROLOGY 06/21/21 Andre Hernandez MD [address] [facility] [address] [place] [address] Consulting Physician HEMATOLOGY/ONCOLOGY 06/21/21 documented as of this encounter
--- OUTSIDE RECORDS SUMMARY | 2025-04-22 13:37 | XMS_ITS | Encounter Summary ---
Author Organization [facility] Address [address] [place] [address] Care Team Providers Care Type Photography Supervisor Name Role Phone Saul Trevino MD Primary Care Provider James Pickett MD Unavailable Bismark Gerardo MD Unavailable Tonio Apodaca MD Unavailable [phone] Faheem Parish MD Unavailable [phone] Adithya Augustine DO Unavailable [phone] Andre Hernandez MD Unavailable Encounter Details Date Type Department Care Team (Late st Contact Info) Description 05/14/2023 Eka Systemst Message Enc [facility] [place], [address] [place], [place] [phone] Minna Segovia, ANP-BC Three [facility]. 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 Answer Date of Assessment Author Status No 11/01/2021 6:01 PM AUDIO VISUAL ARTS DIRECTOR Activ e * Do you have serious difficulty walking or climbing stairs? Answer Date of Assessment Author Status Yes 11/01/2021 6:01 PM AUDIO VISUAL ARTS DIRECTOR Kira Olea R N Active * Do you have difficulty dressing or bathing? Answer Date of Assessment Author Status No 11/01/2021 6:01 PM AUDIO VISUAL ARTS DIRECTOR Kira Olea R N Active * Because of a physical, mental, or emotional condition, do you have difficulty doing errands alone such as visiting a doctor's office or shopping? Answer Date of Assessment Author Status No 11/01/2021 6:01 PM AUDIO VISUAL ARTS DIRECTOR Kira Olea R N Active documented as of this encounter Mental Status * Because of a physical, mental, or emotional condition, do you have serious difficulty concentrating, remembering, or making decisions? Answer Entry Date Author Status No 11/01/2021 6:01 PM AUDIO VISUAL ARTS DIRECTOR Kira Olea R N Active documented in this encounter Plan of Treatment Upcoming Encounters Date Type Department Care Team (Late st Contact Info) Description 06/20/2025 11:35 AM CDT Allied Health/Nurse Visit [facility] [place], [address] [place], [place] [id number] James Pickett MD Three [facility]. [address] [place], [place] [phone] 09/20/2025 12:00 PM AUDIO VISUAL ARTS DIRECTOR Office Visit [facility] [place], [address] [place], [place] [id number] James Pickett MD Three [facility]. [address] [place], [place] [phone] 09/27/2025 1:00 PM AUDIO VISUAL ARTS DIRECTOR Office Visit [facility] [address] [place] [address] Saul Trevino MD [address] [place] [address] documented as of this encounter Goals Goal Patient Goal Type Associated Problems Recent Progress Patient-Stated? Author Patient will return to prior living situation and remain independent in ADLs upon discharge from hospital General No Anna Wall, SHIMA documented as of this encounter Visit Diagnoses Not on filedocumented in this encounter Additional Health Concerns Infection Onset Date Last Indicated Resolved Time COVID-19 Rule Out 08/06/2023 08/06/2023 08/06/2023 1:16 PM AUDIO VISUAL ARTS DIRECTOR COVID-19 Rule Out 10/12/2023 10/12/2023 10/12/2023 8:48 AM AUDIO VISUAL ARTS DIRECTOR COVID-19 Rule Out 07/27/2024 07/27/2024 07/27/2024 12:12 PM AUDIO VISUAL ARTS DIRECTOR Assessment Noted Time PHQ-9 Depression Total Score: 0 09/26/19 23 2:21 PM AUDIO VISUAL ARTS DIRECTOR documented as of this encounter Care Teams Type Photography Supervisor Relationship Specialty Start Date End Date Saul Trevino MD PCP - General FAMILY PRACTICE 08/22/20 James Pickett MD Three [facility]. [facility] [address] [place] [address] [place] [employer] CARDIOVASCULAR DISEASE 03/01/16 Bismark Gerardo MD 3rd [facility] [address] [place] [address] Consulting Physician PULMONARY DISEASE 06/21/21 Tonio Apodaca MD [address] [place] [address] Consulting Physician UROLOGY 06/21/21 Faheem Parish MD [address] [facility] [address] [place] [address] GASTROENTEROLOGY 06/21/21 Adithya Augustine DO [address] [facility] [address] [place] [address] Consulting Physician GASTROENTEROLOGY 06/21/21 Andre Hernandez MD [address] [facility] [address] [place] [address] Consulting Physician HEMATOLOGY/ONCOLOGY 06/21/21 documented as of this encounter
--- OUTSIDE RECORDS SUMMARY | 2025-04-22 13:37 | XMS_ITS | Patient Health Record ---
Author Organization [facility] Address [address] [place] [address] Care Team Providers Care Towel Folder Name Role Phone Saul Trevino MD Primary Care Provider Yash Toledo Unavailable Allergies Allergen (clinical drug ingredient) Drug/Non Drug Allergy documented on EMR Reaction Allergy Type Onset Date Status ciprofloxacin Ciprofloxacin Unknown Drug Allergy Active Results Component Value Reference Range Notes TANVIR w/ ultrasound arterial d uplex Reviewed date:06/07/2024 11:20:25 AM Interpretation:TANVIR right >1.0 with biphasic waveforms, with toe index 0.549. TANVIR left > 1.0 with biphasic wave forms, with toe index 0.634. No significant peripheral arterial disease at rest. Evidence of insignificant tibial arterial disease bilaterally. There is evidence of small vessel disease or embolism in the RT foot. Performing Lab: Notes/Report: TANVIR right >1.0 with biphasic waveforms, with toe index 0.549. TANVIR left > 1.0 with biphasic wave forms, with toe index 0.634. No significant peripheral arterial disease at rest. Evidence of insignificant tibial arterial disease bilaterally. There is evidence of small vessel disease or embolism in the RT foot. Reason For Referral No Information Medications Medication SIG (Take, Route, Fr equency, Duration) Notes Start Date End Date Status Vitamin D Active Xelpros Active FreshKote Active Nitroglycerin Active Eye Drops Active Warfarin Sodium Acti ve Tylenol Active Atorvastatin Calcium Active Aspirin 81 Active Lisinopril Active Pantoprazole Sodium Active Brimonidine Tartrate Active Ferrous Sulfate Acti ve Social History Tobacco Use: Social History Observation Description Date Details (start date - stop date) Former Smoker NA - NA Tobacco Use/Smoking Question Answer Notes Are you a former smoker How long has it been since you last smoked? 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) Active confirmed Problem Porokeratosis (950992944) Porokeratosis (Q82.8) Active confirmed Problem Hammer toe (137457215) Hammer toe, unspecified laterality (M20.40) Active confirmed Problem Peripheral vascular disease (663517569) PAD (peripheral artery disease) (I73.9) Active confirmed Problem Intermittent claudication (79023579) Intermittent claudication (I73.9) Active confirmed Problem Acquired hammer toe of left foot (1007274016804765) Hammertoe of left foot (M20.42) Active confirmed Vital Signs Height 69 in 08/06/2024 Weight 212 lbs 08/06/2024 BMI 31.3 kg/m2 08/06/2024 Encounters Encounter Location Date Provider Diagnosis [facility] [place] [facility] [address] [employer] [address] [address] 04/22/2024 Yash Mota Onychogryphosis L60.2 ; Generalized atherosclerosis I70.91 ; Nail dystrophy L60.3 ; Ingrowing nail L60.0 and Toe pain, left M79.675 [facility] [place] [facility] [address] [address] [place] [address] 05/18/2024 Yash Mota Generalized atherosclerosis I70.91 ; Hammertoe of left foot M20.42 ; Toe pain, left M79.675 ; Intermittent claudication I73.9 ; Porokeratosis Q82.8 and Left foot pain M79.672 [facility] [place] [facility] [address] [address] [place] [address] 06/04/2024 Yash Mota Hammertoe of left foot M20.42 ; Porokeratosis Q82.8 ; PAD (peripheral artery disease) I73.9 ; Toe pain, left M79.675 and Generalized atherosclerosis I70.91 [facility] [place] [employer] [facility] [employer] [address] [place] [address] 08/06/2024 Yash Mota Onychogryphosis L60.2 ; Generalized atherosclerosis I70.91 ; Nail dystrophy L60.3 and Callus of foot L84 [facility] [place] [facility] [employer] [address] [address] 05/18/2024 Luis Fernandoarabella [facility] Assessments Encounter Date Diagnosis (ICD Code) Assessment Notes Treatment Notes Treatment Clinical Notes Section Notes 04/22/2024 Onychogryphosis (ICD-10 - L60.2) 05/18/2024 Generalized atherosclerosis (ICD-10 - I70.91) 05/18/2024 Hammertoe of left foot (ICD-10 - M20.42) Advised pt to use a gel toe spacer. Patient evaluated by [facility]ITA for fitting and dispensing of DME. 06/04/2024 Porokeratosis (ICD-10 - Q82.8) Advised patient that the lesion(s) appear resolved. Discussed possibility of recurrence and advised to contact office if symptoms return, otherwise no further f/u necessary for this condition. 06/04/2024 Hammertoe of left foot (ICD-10 - M20.42) Continue use of gel spacer and monitor for any blisters, wounds or SOI. 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 06/04/2024 PAD (peripheral artery disease) (ICD-10 - I73.9) TANVIR results were reviewed with the patient and his and I advised it appears from the results of this test that he has adequate blood flow to his feet and likely the pain in the toes at night may be due to a pinched nerve in his back. He was encouraged to consider seeing his [facility]. f/u PRN for this condition 05/18/2024 Toe pain, left (ICD-10 - M79.675) 04/22/2024 Generalized atherosclerosis (ICD-10 - I70.91) Considering the associated comorbidities and physical exam findings today, this patient is at substantial risk of developing serious foot complications in the absence of regular and professional palliative foot care. 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 TANVIR will be scheduled. Recommended pt continue to walk for exercise. 06/04/2024 Toe pain, left (ICD-10 - M79.675) 06/04/2024 Generalized atherosclerosis (ICD-10 - I70.91) 08/06/2024 Callus of foot (ICD-10 - L84) 05/18/2024 Porokeratosis (ICD-10 - Q82.8) I recommended initial treatment of the lesion(s) with Cantharone. Discussed the protocol for Cantharone treatment as well as potential for pain and blistering and discussed post application care instructions. Patient agreed to treatment of the lesions with Cantharone. Follow up in 2 weeks 04/22/2024 Ingrowing nail (ICD-10 - L60.0) Discussed ingrown toenail condition and explained in detail conservative and surgical options of care including debridement / slant back procedure vs nail avulsion vs matrixectomy. Discussed pros and cons of each procedure including temporary relief vs more permanent relief with matrixectomy procedure but longer healing time. Patient elected to proceed with avulsion procedure of the affected toe(s). 05/18/2024 Left foot pain (ICD-10 - M79.672) 04/22/2024 Toe pain, left (ICD-10 - M79.675) Plan Of Treatment No Information Insurance Providers Payer Name Payer Address Payer Phone Subscriber Number Group Number Insured Name Patient Relationship to Insured Coverage Start Date Coverage End Date Medicare [address] [facility] [place] [id number] Ian Lua Self - patient is the insured [facility] [address] [place] [address] [id number] Ian Jackson Self - patient is the insured Medical (General) History Medical History History ICD Code a-fib, arthritis, blood clot , prostate cancer, GERD, high cholesterol, high blood pressure, pacemaker, stroke skin cancer Surgical History Surgery Date(Month/Year) pacemaker placement prostectomy gall bladder removal radiation for prostate cancer
--- OUTSIDE RECORDS SUMMARY | 2025-04-22 13:37 | XMS_ITS | Encounter Summary ---
Author Organization [facility] Address [address] [place] [address] Care Team Providers Care Fraud Analyst Name Role Phone Saul Trevino MD Primary Care Provider [phone] Saul Trevino MD Primary Care Provider [phone] James Pickett MD Unavailable Bismark Gerardo MD Unavailable Tonio Apodaca MD Unavailable Faheem Parish MD Unavailable dAithya Augustine DO Unavailable [phone] Andre Hernandez MD Unavailable Encounter Details Date Type Department Care Team (Late st Contact Info) Description 05/07/2018 Abstract [facility] Conversion Saul Trevino MD [address] [place] [address] Social History Tobacco Use Types Packs/Day Years Used Date Smoking Tobacco: Former Cigarettes Q uit: 03/27/1976 Smokeless Tobacco: Never Alcohol Use Standard Drinks/Week Comments Yes 0 (1 standard drink = 0.6 oz pur e alcohol) socially Sex and Gender Information Value Date Recorded Sex Assigned at Male 07/05/2018 8:48 PM COFFEE ATTENDANT Legal Sex Male 11:44 PM CDT Gender Identity Male 07/05/2018 8:48 PM COFFEE ATTENDANT Sexual Orientation Straight 08/03/2018 2: 21 PM COFFEE ATTENDANT Occupation Industry Job Start Date Job End Date Not on file Not on file Not on file Not on file documented as of this encounter Miscellaneous Notes * Letter - Saul Trevino MD - 05/07/2018 12:00 AM CDT 05-07-2018 , Ian Lua [address] [place] [address] : 1945 RadiologyCAT Scan Other:_lumbar spine with out contrast DX M54.5 severe low back pain Fasting [] Non-Fasting [] Normal [] Stat [] EE ATTENDANT documented in this encounter Plan of Treatment Upcoming Encounters Date Type Department Care Team (Late st Contact Info) Description 06/20/2025 11:35 AM CDT Allied Health/Nurse Visit [facility], [address] [address] James Pickett MD [facility]. [address] [address] 09/20/2025 12:00 PM COFFEE ATTENDANT Office Visit [facility], [address] [phone] James Pickett MD [facility]. [facility] [address] [place] [phone] 09/27/2025 1:00 PM COFFEE ATTENDANT Office Visit [facility] [address] [place] [address] Saul Trevino MD [address] [place] [id number] documented as of this encounter Visit Diagnoses Not on filedocumented in this encounter Additional Health Concerns Infection Onset Date Last Indicated Resolved Time COVID-19 Rule Out 03/08/2020 03/08/2020 03/08/2020 12:47 PM CDT COVID-19 Rule Out 11/05/2020 11/05/2020 11/06/2020 5:31 PM COFFEE ATTENDANT COVID-19 Rule Out 03/12/2021 03/12/2021 03/13/2021 1:44 PM CDT COVID-19 Rule Out 05/20/2021 05/20/2021 05/21/2021 11:12 AM CDT COVID-19 Rule Out 08/06/2023 08/06/2023 08/06/2023 1:16 PM COFFEE ATTENDANT COVID-19 Rule Out 10/12/2023 10/12/2023 10/12/2023 8:48 AM COFFEE ATTENDANT COVID-19 Rule Out 07/27/2024 07/27/2024 07/27/2024 12:12 PM COFFEE ATTENDANT documented as of this encounter Care Teams Fraud Analyst Relationship Specialty Start Date End Date Saul Trevino MD PCP - General FAMILY PRACTICE 03/01/16 08/21/20 Saul Trevino MD PCP - General FAMILY PRACTICE 08/22/20 James Pickett MD Three [facility]. [address] [place], [place] [phone] Ideal Manager Entry CARDIOVASCULAR DISEASE 03/01/16 Bismark Gerardo MD 3rd [facility] [address] [place], [place] [phone] Consulting Physician PULMONARY DISEASE 06/21/21 Tonio Apodaca MD [address] [place], [place] [address] Consulting Physician UROLOGY 06/21/21 Faheem Parish MD [address] [facility] [address] [place] [address] GASTROENTEROLOGY 06/21/21 Adithya Augustine DO [address] [facility] [address] [place] [address] Consulting Physician GASTROENTEROLOGY 06/21/21 Andre Hernandez MD [address] [facility] [address] [place], [place] [phone] Consulting Physician HEMATOLOGY/ONCOLOGY 06/21/21 documented as of this encounter
--- OUTSIDE RECORDS SUMMARY | 2025-04-22 13:37 | XMS_ITS | Encounter Summary ---
Author Organization [facility] Address formerly [facility] [place] [address] Care Team Providers Care Edger Operator Name Role Phone Saul Trevino MD Primary Care Provider [phone] Saul Trevino MD Primary Care Provider [phone] James Pickett MD Unavailable Bismark Gerardo MD Unavailable [phone] Tonio Apodaca MD Unavailable [phone] Faheem Parish MD Unavailable [phone] Adithya Augustine DO Unavailable [phone] Andre Hernandez MD Unavailable [phone] Encounter Details Date Type Department Care Team (Late st Contact Info) Description 04/16/2018 Abstract [facility] [address] [place] [address] Ayde Christine MA Social History Tobacco Use Types Packs/Day Years Used Date Smoking Tobacco: Former Cigarettes Q uit: 03/27/1976 Smokeless Tobacco: Never Alcohol Use Standard Drinks/Week Comments Yes 0 (1 standard drink = 0.6 oz pur e alcohol) socially Sex and Gender Information Value Date Recorded Sex Assigned at Male 07/05/2018 8:48 PM CHROME PLATER HELPER Legal Sex Male 11:44 PM CDT Gender Identity Male 07/05/2018 8:48 PM CHROME PLATER HELPER Sexual Orientation Straight 08/03/2018 2: 21 PM CHROME PLATER HELPER Occupation Industry Job Start Date Job End Date Not on file Not on file Not on file Not on file documented as of this encounter Plan of Treatment Upcoming Encounters Date Type Department Care Team (Late st Contact Info) Description 06/20/2025 11:35 AM CDT Allied Health/Nurse Visit [facility] THREE [facility], [address] [place] [address] James Pickett MD Three [facility]. [address] [place] [address] 09/20/2025 12:00 PM CHROME PLATER HELPER Office Visit [facility], [address] [place] [address] James Pickett MD Three [facility]. [address] [place] [address] 09/27/2025 1:00 PM CHROME PLATER HELPER Office Visit [facility] [address] [place] [address] Saul Trevino MD [address] [place] [address] documented as of this encounter Procedures Procedure Name Priority Date/Time Associated Diagnosis Comments BASIC METABOLIC PANEL Routine 03/23/2018 CBC (OUTSIDE LAB) Routine 05/22/2017 COMPREHENSIVE METABOLIC PANEL Routine 05/22/2017 THYROID STIM HORMONE TSH Routine 05/22/2017 URIC ACID BLOOD Routine 05/22/2017 documented in this encounter Results * BASIC METABOLIC PANEL (03/23/2018) SODIUM S/P/B 141 POTASSIUM S/P/B 4.5 CO2 25.9 CHLORIDE S/P/B 105 GLUCOSE 89 mg/dL CALCIUM S/P/B 9.2 BUN 13 CREATININE S/P/B 1.16 0.7 - 1.3 EGFR AFR. AMER. 72 EGFR NON-AFR. AMER. 62 <=90 03/23/2018 [facility] Abstract LABORATORY Final Result * URIC ACID BLOOD (05/22/2017) URIC ACID 7.7 05/22/2017 [facility] Abstract LABORATORY Final Result * COMPREHENSIVE METABOLIC PANEL (05/22/2017) SODIUM S/P/B 141 POTASSIUM S/P/B 4.1 CO2 25 CHLORIDE S/P/B 108 GLUCOSE 108 mg/dL CALCIUM S/P/B 9.4 BUN 21 CREATININE S/P/B 1.14 0.7 - 1.3 EGFR AFR. AMER. >60 EGFR NON-AFR. AMER. >60 <=90 ALKALINE PHOSPHATASE S/P/B 106 ALT 18 AST 19 BILIRUBIN TOTAL S/P/B 0.3 ALBUMIN S/P/B 3.8 3.5 - 5.0 TOTAL PROTEIN S/P/B 6.3 05/22/2017 [facility] Final Result * THYROID STIM HORMONE, TSH (05/22/2017) TSH 1.721 05/22/2017 [facility]ORATORY Final Result * CBC (OUTSIDE LAB) (05/22/2017) WBC 3.6 HGB 14.8 HCT 42.4 PLT 167 05/22/2017 [facility] Abstract LAB-OUTSIDE/ABSTRACTED Final Result documented in this encounter Visit Diagnoses Not on filedocumented in this encounter Additional Health Concerns Infection Onset Date Last Indicated Resolved Time COVID-19 Rule Out 03/08/2020 03/08/2020 03/08/2020 12:47 PM CDT COVID-19 Rule Out 11/05/2020 11/05/2020 11/06/2020 5:31 PM CHROME PLATER HELPER COVID-19 Rule Out 03/12/2021 03/12/2021 03/13/2021 1:44 PM CDT COVID-19 Rule Out 05/20/2021 05/20/2021 05/21/2021 11:12 AM CDT COVID-19 Rule Out 08/06/2023 08/06/2023 08/06/2023 1:16 PM CHROME PLATER HELPER COVID-19 Rule Out 10/12/2023 10/12/2023 10/12/2023 8:48 AM CHROME PLATER HELPER COVID-19 Rule Out 07/27/2024 07/27/2024 07/27/2024 12:12 PM CHROME PLATER HELPER documented as of this encounter Care Teams Edger Operator Relationship Specialty Start Date End Date Saul Trevino MD PCP - General FAMILY PRACTICE 03/01/16 08/21/20 Saul Trevino MD PCP - General FAMILY PRACTICE 08/22/20 James Pickett MD Three [facility]. [address] [place] [address] [place] Toy Assembly Supervisor CARDIOVASCULAR DISEASE 03/01/16 Bismark Gerardo MD [address] [facility] [address] [place], [place] [address] Consulting Physician PULMONARY DISEASE 06/21/21 Tonio Apodaca MD [address] [place] [address] Consulting Physician UROLOGY 06/21/21 Faheem Parish MD [address] [facility] [address] [place] [address] GASTROENTEROLOGY 06/21/21 Adithya Augustine DO [address] [facility] [address] [place] [address] Consulting Physician GASTROENTEROLOGY 06/21/21 Andre Hernandez MD [address] [facility] [address] [place], [place] [address] Consulting Physician HEMATOLOGY/ONCOLOGY 06/21/21 documented as of this encounter
--- OUTSIDE RECORDS SUMMARY | 2025-04-22 13:37 | XMS_ITS | Encounter Summary ---
Author Organization [facility] Address [address] [place] [address] Care Team Providers Care Reading Efficiency Course Director Name Role Phone Saul Trevino MD Primary Care Provider [phone] Saul Trevino MD Primary Care Provider [phone] James Pickett MD Unavailable Bismark Gerardo MD Unavailable Tonio Apodaca MD Unavailable Faheem Parish MD Unavailable Adithya Augustine DO Unavailable [phone] Andre Hernandez MD Unavailable Encounter Details Date Type Department Care Team (Late st Contact Info) Description 05/12/2020 Frock Advisor Message Enc [facility] [place] Three [facility], [address] [place], [place] [id number] Minna Segovia, [facility]- Three [facility]. 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 No / Unsure 05/15/2020 1:03 PM CDT documented as of this encounter [...] PM CDT Sania Aviles RN Active * Because of a physical, mental, or emotional condition, do you have difficulty doing errands alone such as visiting a doctor's office or shopping? Answer Date of Assessment Author Status No 03/10/2020 7:56 PM ANDERSONT Sania Aviles RN Active documented as of this encounter Mental Status * Because of a physical, mental, or emotional condition, do you have serious difficulty concentrating, remembering, or making decisions? Answer Entry Date Author Status No 03/10/2020 7:56 PM CDT Klunk, Sania E, RN Active documented in this encounter Plan of Treatment Upcoming Encounters Date Type Department Care Team (Late st Contact Info) Description 06/20/2025 11:35 AM CDT Allied Health/Nurse Visit [facility] THREE [facility], [address] [place] [address] James Pickett MD Three [facility]. [address] [place], [place] [id number] 09/20/2025 12:00 PM ASSEMBLER TESTER Office Visit [facility] THREE [facility], [address] [place] [address] James Pickett MD Three [facility]. [address] [place], [place] [address] 09/27/2025 1:00 PM ASSEMBLER TESTER Office Visit [facility] [address] [place] [address] Saul Trevino MD [address] [place] [address] documented as of this encounter Visit Diagnoses Not on filedocumented in this encounter Additional Health Concerns Infection Onset Date Last Indicated Resolved Time COVID-19 Rule Out 11/05/2020 11/05/2020 11/06/2020 5:31 PM ASSEMBLER TESTER COVID-19 Rule Out 03/12/2021 03/12/2021 03/13/2021 1:44 PM CDT COVID-19 Rule Out 05/20/2021 05/20/2021 05/21/2021 11:12 AM CDT COVID-19 Rule Out 08/06/2023 08/06/2023 08/06/2023 1:16 PM ASSEMBLER TESTER COVID-19 Rule Out 10/12/2023 10/12/2023 10/12/2023 8:48 AM ASSEMBLER TESTER COVID-19 Rule Out 07/27/2024 07/27/202407/27/2024 12:12 PM ASSEMBLER TESTER documented as of this encounter Care Teams Reading Efficiency Course Director Relationship Specialty Start Date End Date Saul Trevino MD PCP - General FAMILY PRACTICE 03/01/16 08/21/20 Saul Trevino MD PCP - General [facility] 08/22/20 James Pickett MD Three [facility]. [address] [place] [address] [place] [employer]ation Equipment Tender CARDIOVASCULAR DISEASE 03/01/16 Bismark Gerardo MD 3rd [facility] [address] [place] [address] Consulting Physician PULMONARY DISEASE 06/21/21 Tonio Apodaca MD 3 [facility] [place] [address] Consulting Physician UROLOGY 06/21/21 Faheem Parish MD [address] [facility] [address] [place] [address] GASTROENTEROLOGY 06/21/21 Adithya Augustine DO [address] [facility] [address] [place] [address] Consulting Physician GASTROENTEROLOGY 06/21/21 Andre Hernandez MD [address] [facility] [address] [place] [address] Consulting Physician HEMATOLOGY/ONCOLOGY 06/21/21 documented as of this encounter
--- OUTSIDE RECORDS SUMMARY | 2025-04-22 13:37 | XMS_ITS | Encounter Summary ---
Author Organization [facility] Address [facility] [place] [address] Care Team Providers Care Teacher Of The Handicapped Name Role Phone Saul Trevino MD Primary Care Provider [phone] Saul Trevino MD Primary Care Provider [phone] James Pickett MD Unavailable Bismark Gerardo MD Unavailable [phone] Tonio Apodaca MD Unavailable [phone] Faheem Parish MD Unavailable [phone] Adithya Augustine DO Unavailable [phone] Andre Hernandez MD Unavailable Encounter Details Date Type Department Care Team (Late st Contact Info) Description 03/20/2016 Abstract [facility] AT [address] [address] Ayde Christine MA Social History Tobacco Use Types Packs/Day Years Used Date Smoking Tobacco: Former Cigarettes Q uit: 03/27/1976 Smokeless Tobacco: Never Alcohol Use Standard Drinks/Week Comments Yes 0 (1 standard drink = 0.6 oz pur e alcohol) socially Sex and Gender Information Value Date Recorded Sex Assigned at Male 07/05/2018 8:48 PM PACK MASTER Legal Sex Male 11:44 PM CDT Gender Identity Male 07/05/2018 8:48 PM PACK MASTER Sexual Orientation Straight 08/03/2018 2: 21 PM PACK MASTER Occupation Industry Job Start Date Job End Date Not on file Not on file Not on file Not on file documented as of this encounter Plan of Treatment Upcoming Encounters Date Type Department Care Team (Late st Contact Info) Description 06/20/2025 11:35 AM CDT Allied Health/Nurse Visit [facility] THREE [facility], [address] [place] [address] James Pickett MD Three [facility]. [address] [place] [address] 09/20/2025 12:00 PM PACK MASTER Office Visit [facility] THREE [facility], [address] [place] [address] James Pickett MD Three [facility]. [address] [place] [address] 09/27/2025 1:00 PM PACK MASTER Office Visit [facility] [address] [place] [address] Saul Trevino MD [address] [place] [address] documented as of this encounter Procedures Procedure Name Priority Date/Time Associated Diagnosis Comments CBC (OUTSIDE LAB) Routine 05/10/2016 COMPREHENSIVE METABOLIC PANEL Routine 05/10/2016 LIPID PANEL Routine 05/10/2016 THYROID STIM HORMONE TSH Routine 05/10/2016 CBC (OUTSIDE LAB) Routine 01/21/2016 HEPATIC FUNCTION PANEL Routine 01/21/2016 LIPID PANEL Routine 01/20/2016 documented in this encounter Results * CBC (OUTSIDE LAB) (05/10/2016) WBC 4.3 HGB 15.3 HCT 44.2 PLT 145 05/10/2016 [facility] Abstract LAB-OUTSIDE/ABSTRACTED Final Result * THYROID STIM HORMONE, TSH (05/10/2016) TSH 1.955 05/10/2016 us [facility] Abstract LABORATORY Final Result * LIPID PANEL (05/10/2016) CHOLESTEROL 169 HDL 45 TRIGLYCERIDES 115 LDL (CALCULATED) 101 05/10/2016 [facility] Abstract LABORATORY Final Result * COMPREHENSIVE METABOLIC PANEL (05/10/2016) SODIUM S/P/B 143 POTASSIUM S/P/B 4.0 CO2 29 CHLORIDE S/P/B 106 GLUCOSE 96 CALCIUM S/P/B 9.6 BUN 14 CREATININE S/P/B 1.03 EGFR AFR. AMER. >60 EGFR NON-AFR. AMER. >60 ALKALINE PHOSPHATASE S/P/B 88 ALT 18 AST 19 BILIRUBIN TOTAL S/P/B 0.6 ALBUMIN S/P/B 4.0 3.5 - 5.0 TOTAL PROTEIN S/P/B 6.2 05/10/2016 [facility] Abstract LABORATORY Final Result * HEPATIC FUNCTION PANEL (01/21/2016) ALBUMIN S/P/B 4.0 3.5 - 5.0 ALKALINE PHOSPHATASE S/P/B 84 ALT 17 AST 18 BILIRUBIN TOTAL S/P/B 0.5 TOTAL PROTEIN S/P/B 6.5 01/21/2016 us Doc [facility] Abstract LABORATORY Edited Resul t - Final * CBC (OUTSIDE LAB) (01/21/2016) WBC 6.0 HGB 14.5 HCT 42 PLT 135 01/21/2016 us [facility] Abstract LAB-OUTSIDE/ABSTRACTED Final Result * LIPID PANEL (01/20/2016) CHOLESTEROL 147 HDL 44 TRIGLYCERIDES 122 NON HDL CHOLESTEROL 103 LDL (CALCULATED) 79 01/20/2016 us Doc [facility] Abstract LABORATORY Final Result documented in this encounter Visit Diagnoses Not on filedocumented in this encounter Additional Health Concerns Infection Onset Date Last Indicated Resolved Time COVID-19 Rule Out 03/08/2020 03/08/2020 03/08/2020 12:47 PM CDT COVID-19 Rule Out 11/05/2020 11/05/2020 11/06/2020 5:31 PM PACK MASTER COVID-19 Rule Out 03/12/2021 03/12/2021 03/13/2021 1:44 PM CDT COVID-19 Rule Out 05/20/2021 05/20/2021 05/21/2021 11:12 AM CDT COVID-19 Rule Out 08/06/2023 08/06/2023 08/06/2023 1:16 PM PACK MASTER COVID-19 Rule Out 10/12/2023 10/12/2023 10/12/2023 8:48 AM PACK MASTER COVID-19 Rule Out 07/27/2024 07/27/2024 07/27/2024 12:12 PM PACK MASTER documented as of this encounter Care Teams Teacher Of The Handicapped Relationship Specialty Start Date End Date Saul Trevino MD PCP - General FAMILY PRACTICE 03/01/16 08/21/20 Saul Trevino MD PCP - General FAMILY PRACTICE 08/22/20 James Pickett MD Three [facility]. [address] [place] [address] Patten Clinical Resource Coordinator CARDIOVASCULAR DISEASE 03/01/16 Bismark Gerardo MD 3rd [facility] [address] [place] [address] Consulting Physician PULMONARY DISEASE 06/21/21 Tonio Apodaca MD [address] [place] [address] Consulting Physician UROLOGY 06/21/21 Faheem Parish MD [address] [facility] [address] [place] [address] GASTROENTEROLOGY 06/21/21 Adithya Augustine DO [address] [facility] [address] [place] [address] Consulting Physician GASTROENTEROLOGY 06/21/21 Andre Hernandez MD [address] [facility] [address] [place], [place] [address] Consulting Physician HEMATOLOGY/ONCOLOGY 06/21/21 documented as of this encounter
== END 2025-04-22 13:30 | disposition home or self-care (01) ==
PROVIDERS: PCP Family Medicine; Visit Provider Urology
DX: C61 Malignant neoplasm of prostate (principal)
CPT/HCPCS: 78815; A9596